=== PATIENT | male | born 1980 | race Caucasian/White ===

== ENCOUNTER 2022-10-10 12:03 | Inpatient (IN) | payer OTHER, SELFPAY ==
[2022-10-10 12:23] VITALS: BP 134/75; PULSE 70; RESP 18; TEMP 36.8; O2SAT 99; BMI 26.8
--- NOTE | 2022-10-10 12:23 | ED.GENADULT ---
HPI - General Adult General Chief complaint: Psychiatric Symptoms Stated complaint: crisis Time Seen by Provider: 10/10/22 13:40 Source: patient Mode of arrival: ambulatory Limitations: no limitations History of Present Illness HPI narrative: Patient is a 42 year old assigned male at with no reported medical history presenting to the emergency department today with increased depression and suicidal ideation. Patient states that he has suicidal thoughts but no plan. Patient denies any dizziness, lightheadedness, abdominal pain, nausea, vomiting, fever, chills, blurry vision, double vision, loss of vision, chest pain, difficulty breathing, shortness of breath, back pain, night sweats, pain with urination, increased urinary frequency, increased urinary urgency, blood in his urine or stool, syncope or a near syncopal episode, recent trauma or falls, bowel incontinence, bladder incontinence, bowel retention, bladder retention, or any other complaints at this time. Onset (ago): day(s) Severity: mild Relieving factors: none Exacerbating factors: none Associated symptoms: denies other symptoms Treatments prior to arrival: none Related Data Home Medications Medication Instructions Recorded Confirmed cyanocobalamin (vitamin B-12) 100 100 mcg PO DAILY 10/10/22 10/10/22 mcg tablet ibuprofen 600 mg tablet 600 mg PO Q6H PRN pain 10/10/22 10/10/22 methocarbamol 750 mg tablet 750 mg PO Q6H PRN muscle spasm 10/10/22 10/10/22 mirtazapine 7.5 mg tablet 7.5 mg PO BEDTIME 10/10/22 10/10/22 olanzapine 5 mg tablet 5 mg PO BEDTIME 10/10/22 10/10/22 Allergies Allergy/AdvReac Type Severity Reaction Status Date / Time seafood Allergy Unknown Verified 10/10/22 14:07 Review of Systems Constitutional: Constitutional: Reports no additional constitutional complaints, Denies chills, Denies fever(s) and Denies night sweats Eyes: Eyes: Reports no additional eye complaints, Denies blurry vision, Denies change in vision, Denies diplopia, Denies eye discharge, Denies loss of vision and Denies eye pain ENT: Denies dizziness Cardiovascular: Cardiovascular: Reports no additional cardiovascular complaints, Denies chest pain, Denies lightheadedness, Denies Loss of Consciousness and Denies dyspnea Respiratory: Respiratory: Reports no additional respiratory complaints and Denies dyspnea Gastrointestinal: Gastrointestinal: Reports no additional gastrointestinal complaints, Denies abdominal pain, Denies melena, Denies hematochezia, Denies change in bowel habits and Denies change in stool character Genitourinary: Genitourinary: Reports no additional male genitourinary complaints, Denies hematuria, Denies oliguria, Denies difficulty urinating, Denies dysuria, Denies urinary frequency, Denies urinary hesitancy, Denies urinary incontinence and Denies urinary urgency Musculoskeletal: Musculoskeletal: Reports no additional musculoskeletal complaints, Denies numbness and Denies tingling Neurologic: Denies dizziness, Denies loss of vision, Denies numbness and Denies tingling Psychiatric: Psychiatric: Reports no additional psychiatric complaints Endocrine: Endocrine: Reports no additional endocrine complaints Hematologic/Lymphatic: Hematologic/Lymphatic: Reports no additional hematologic/lymphatic complaints Allergic/Immunologic: Allergic/Immunologic: Reports no additional allergic/immunologic complaints [facility] Past Medical History Attestation statement: The following information was validated with the patient. Source: old records reviewed and nursing notes reviewed Social History Social History Advance Directives: No Advance Directives Information Provided: Yes Physical Exam ED Vital Signs: Vital Signs - 24 hr 10/10/22 12:23 Temperature 98.3 F Pulse Rate 70 Respiratory Rate 18 Blood Pressure 134/75 Pulse Oximetry 99 Oxygen Delivery Method Room Air BMI result Body Mass Index 26.8 Const General: cooperative, no acute distress, alert and awake Nutritional Appearance: well nourished Orientation/consciousness: patient oriented x3 Limitations: no limitations [facility] Head: Yes normal to inspection and Yes atraumatic Ears: hearing grossly normal bilaterally and external ears normal General nose exam: Normal external nose present, no nasal discharge noted and no epistaxis Face and sinus: Yes normal facial exam, No abrasion and No laceration Mouth: Normal oral and palatal mucosa present, no drooling and no muffled voice Eyes General: appearance normal, both eyes and all related structures Periorbital: periorbital findings normal Eyelids: Yes eyelids normal Conjunctivae: conjunctivae normal Pupils: Equal, round and reactive pupils present EOM: EOMs intact bilaterally Neck Neck: Yes normal visual inspection, Yes full ROM and Yes no lymphadenopathy Chest Chest palpation & inspection: normal inspection of the chest Resp Effort & Inspection: normal respiratory effort and able to speak in complete sentences GI Inspection: Yes normal to inspection Neuro General: patient oriented x3 and moves all extremities Cranial nerves: Yes Equal, round and reactive pupils present Cognition (Neuro): normal cognition Motor exam (neuro): 5/5 motor strength present throughout Sensory Exam: Normal double simultaneous stimulation for sensation Coordination: [id number] test normal Extrem General: Yes normal to inspection, Yes full ROM and Yes capillary refill normal Psych Appearance: grossly normal Mental Status: mental status grossly normal Affect: Sad affect present Attitude: cooperative Thought process: Normal thought process present Thought content: Normal thought content present Insight: Good insight present (Psych) Course Course Course Narrative: RME performed by Radha Ivey PA-C. Patient is a 42 year old assigned male at presenting to the emergency department with worsening depression and suicidal ideation. Patient denies any plain. Labs ordered. Patient placed back in the waiting room pending room availability and results. Medical Decision Making Medical Decision Making MDM Narrative: Patient is a 42 year old assigned male at with no reported medical history presenting to the emergency department today with depression and suicidal ideation. Patient's physical exam was unremarkable. Patient's blood work was unremarkable. Patient's urine showed no acute process. I explained my physical exam findings as well as all test results to the patient. I answered all questions asked by the patient. Patient met with CARE team who recommended voluntary admission. Differential Diagnosis Differential Diagnoses: The differential diagnosis associated with the presentation includes depression Lab Data [facility] Lab Attestation statement: I reviewed the patient's lab results. 10/10/22 12:50 10/10/22 12:50 Labs: Lab Results 10/10/22 10/10/22 10/10/22 Range/Units 12:50 12:50 13:42 WBC 4.9 (4.8-10.8) X10*3/uL RBC 4.91 (4.60-5.80) X10*6/uL Hgb 15.0 (14.0-18.0) g/dl Hct 44.0 (42.0-52.0) % MCV 89.6 (80.0-98.0) fL MCH 30.5 (27.0-33.0) pg MCHC 34.1 (31.0-36.0) g/dl RDW 13.2 (11.0-16.0) % Plt Count 213 (160-400) X10*3/uL MPV 9.3 L (9.4-12.4) fL Immature Gran % (Auto) 0.2 (0.0-0.4) % Neut % (Auto) 54.5 (45-73) % Lymph % (Auto) 36.8 (20-40) % [place] % (Auto) 6.3 (2-11) % Eos % (Auto) 2.0 (0-4) % Baso % (Auto) 0.2 (0-2) % Lymph # (Auto) 1.8 (1.2-4.9) X10*3/uL [place] # (Auto) 0.3 (0.1-1.2) X10*3/uL Eos # (Auto) 0.1 (0.0-0.4) X10*3/uL Baso # (Auto) 0.0 (0.0-0.2) X10*3/uL Abs Immat Gran (auto) 0.01 (0.00-0.03) X10*3/uL Absolute Neuts (auto) 2.7 (2.0-8.3) x10*3/uL Absolute Nucleated RBC 0.000 (0.0-0.012) X10*3/uL Nucleated RBC % (auto) 0.0 (0.0-0.2) /100WBC Sodium 142 (135-145) mmol/L Potassium 4.1 (3.3-5.1) mmol/L Chloride 105 (96-108) mmol/L Carbon Dioxide 28 (22-29) mmol/L Anion Gap 13 (12-20) BUN 11 (9-16) mg/dL Creatinine 1.30 (0.5-1.4) mg/dL Estim Creat Clear Calc 67.4 Estimated GFR > 60 Random Glucose 116 H (60-115) mg/dL Calcium 9.7 (8.4-10.2) mg/dL Magnesium 2.0 (1.6-2.6) mg/dL Total Bilirubin 0.7 (0.0-1.0) mg/dL AST 24 (5-37) U/L ALT 31 (0-40) U/L Alkaline Phosphatase 57 (39-117) U/L Total Protein 6.8 (6.5-8.0) g/dL Albumin 4.1 (3.5-5.0) g/dL Urine Color Dark Yellow Urine Appearance Clear Urine pH 5.5 (5.0-9.0) Ur Specific [place] >= 1.030 H (1.005-1.025) Urine Protein Trace (Neg-Trace) mg/dL Urine Glucose (UA) Negative (Negative) mg/dL Urine Ketones Trace (Negative) mg/dL Urine Blood Negative (Negative) Urine Nitrite Negative (Negative) Ur Leukocyte Esterase Trace H (Negative) Urine RBC 0-2 (0-2) /HPF Urine WBC 0-5 (0-5) /HPF Ur Squamous Epith Cells 0-2 (0-2) /HPF Urine Bacteria None Seen (None Seen) Hyaline Casts 3-5 (0-2) /LPF Urine Opiates Screen (Not Detect) Urine Fentanyl Screen (Not Detect) Ur Barbiturates Screen (Not Detect) Ur Phencyclidine Scrn (Not Detect) Ur Amphetamines Screen (Not Detect) U Benzodiazepines Scrn (Not Detect) Urine Cocaine Screen (Not Detect) U Marijuana (THC) Screen (Not Detect) COVID-19 (ALYSSA) (Negative) COVID-19 Clin Com 10/10/22 10/10/22 Range/Units 13:42 16:33 WBC (4.8-10.8) X10*3/uL RBC (4.60-5.80) X10*6/uL Hgb (14.0-18.0) g/dl Hct (42.0-52.0) % MCV (80.0-98.0) fL MCH (27.0-33.0) pg MCHC (31.0-36.0) g/dl RDW (11.0-16.0) % Plt Count (160-400) X10*3/uL MPV (9.4-12.4) fL Immature Gran % (Auto) (0.0-0.4) % Neut % (Auto) (45-73) % Lymph % (Auto) (20-40) % [place] % (Auto) (2-11) % Eos % (Auto) (0-4) % Baso % (Auto) (0-2) % Lymph # (Auto) (1.2-4.9) X10*3/uL [place] # (Auto) (0.1-1.2) X10*3/uL Eos # (Auto) (0.0-0.4) X10*3/uL Baso # (Auto) (0.0-0.2) X10*3/uL Abs Immat Gran (auto) (0.00-0.03) X10*3/uL Absolute Neuts (auto) (2.0-8.3) x10*3/uL Absolute Nucleated RBC (0.0-0.012) X10*3/uL Nucleated RBC % (auto) (0.0-0.2) /100WBC Sodium (135-145) mmol/L Potassium (3.3-5.1) mmol/L Chloride (96-108) mmol/L Carbon Dioxide (22-29) mmol/L Anion Gap (12-20) BUN (9-16) mg/dL Creatinine (0.5-1.4) mg/dL Estim Creat Clear Calc Estimated GFR Random Glucose (60-115) mg/dL Calcium (8.4-10.2) mg/dL Magnesium (1.6-2.6) mg/dL Total Bilirubin (0.0-1.0) mg/dL AST (5-37) U/L ALT (0-40) U/L Alkaline Phosphatase (39-117) U/L Total Protein (6.5-8.0) g/dL Albumin (3.5-5.0) g/dL Urine Color Urine Appearance Urine pH (5.0-9.0) Ur Specific [place] (1.005-1.025) Urine Protein (Neg-Trace) mg/dL Urine Glucose (UA) (Negative) mg/dL Urine Ketones (Negative) mg/dL Urine Blood (Negative) Urine Nitrite (Negative) Ur Leukocyte Esterase (Negative) Urine RBC (0-2) /HPF Urine WBC (0-5) /HPF Ur Squamous Epith Cells (0-2) /HPF Urine Bacteria (None Seen) Hyaline Casts (0-2) /LPF Urine Opiates Screen Not Detected (Not Detect) Urine Fentanyl Screen Not Detected (Not Detect) Ur Barbiturates Screen Not Detected (Not Detect) Ur Phencyclidine Scrn Not Detected (Not Detect) Ur Amphetamines Screen Not Detected (Not Detect) U Benzodiazepines Scrn Not Detected (Not Detect) Urine Cocaine Screen POSITIVE H (Not Detect) U Marijuana (THC) Screen POSITIVE H (Not Detect) COVID-19 (ALYSSA) Negative (Negative) COVID-19 Clin Com See Note Independent Interpretation I performed an independent interpretation of an: EKG Interpretation: Vent. Rate: 056 BPM ? ? Atrial Rate: 056 BPM P-R Int: 172 ms? QRS Dur: 096 ms QT Int: 432 ms ? ? ? P-R-T Axes: 068 072 053 degrees QTc Int: 416 ms ? Sinus bradycardia Otherwise normal ECG No previous ECGs available DD/ 1646 Discharge Plan Discharge Clinical Impression: Depression Patient Disposition: Still a Patient Prescriptions: No Action cyanocobalamin (vitamin B-12) 100 mcg tablet 100 mcg PO DAILY olanzapine 5 mg tablet 5 mg PO BEDTIME methocarbamol 750 mg tablet 750 mg PO Q6H PRN (Reason: muscle spasm) ibuprofen 600 mg tablet 600 mg PO Q6H PRN (Reason: pain) mirtazapine 7.5 mg tablet 7.5 mg PO BEDTIME Interventions: [place]-Suicide Risk Severity Scale Last Done: 10/10/22 12:24
[2022-10-10 12:54] LABS: MANUAL DIFF FLAG NO
[2022-10-10 12:59] LABS: Basophils Percent Auto 0.2 % (0-2); Eosinophils Absolute Auto 0.1 X10*3/uL (0.0-0.4); Imm Gran Abs Auto 0.01 X10*3/uL (0.00-0.03); Imm Gran Pct Auto 0.2 % (0.0-0.4); Lymphocytes Absolute Auto 1.8 X10*3/uL (1.2-4.9); Lymphocytes Percent Auto 36.8 % (20-40); Mean Corpuscular HGB Conc 34.1 g/dl (31.0-36.0); Mean Corpuscular Hemoglobin 30.5 pg (27.0-33.0); Mean Corpuscular Volume 89.6 fL (80.0-98.0); Mean Platelet Volume 9.3 fL (9.4-12.4); Monocytes Absolute Auto 0.3 X10*3/uL (0.1-1.2); Monocytes Percent Auto 6.3 % (2-11); Neutrophils Absolute Auto 2.7 x10*3/uL (2.0-8.3); Neutrophils Percent Auto 54.5 % (45-73); Platelet Count 213 X10*3/uL (160-400); Red Blood Count 4.91 X10*6/uL (4.60-5.80); Red Cell Distribution Width 13.2 % (11.0-16.0); White Blood Count 4.9 X10*3/uL (4.8-10.8)
[2022-10-10 13:20] LABS: Alanine Aminotransferase 31 U/L (0-40); Albumin Level 4.1 g/dL (3.5-5.0); Alkaline Phosphatase 57 U/L (39-117); Anion Gap 13 (12-20); Aspartate Amino Transferase 24 U/L (5-37); Bilirubin Total 0.7 mg/dL (0.0-1.0); Blood Urea Nitrogen 11 mg/dL (9-16); Calcium 9.7 mg/dL (8.4-10.2); Carbon Dioxide 28 mmol/L (22-29); Chloride 105 mmol/L (96-108); Creatinine Clr Calc Pharmacy 67.4; Estimated Glomerular Filt Rate > 60; Glucose Random 116 mg/dL (60-115); Potassium 4.1 mmol/L (3.3-5.1); Sodium 142 mmol/L (135-145); Total Protein 6.8 g/dL (6.5-8.0)
[2022-10-10 13:52] LABS: Appearance Urine Clear; Color Urine Dark Yellow; Glucose Urine UA Negative (Negative); Leukocyte Esterase Urine Trace (Negative); Nitrite Urine Negative (Negative); PH 5.5 (5.0-9.0); Specific Gravity - Urine >= 1.030 (1.005-1.025); UMIC TRIGGER UACC YES; Urine Blood Negative (Negative); Urine Ketones Trace mg/dL (Negative); Urine Protein Trace mg/dL (Neg-Trace)
[2022-10-10 14:07] LABS: Amphetamine Screen Urine Not Detected (Not Detect); Barbiturates, Urine Not Detected (Not Detect); Benzodiazepines Screen Urine Not Detected (Not Detect); Cannabinoid Screen Urine POSITIVE (Not Detect); Cocaine Screen Urine POSITIVE (Not Detect); Fentanyl, urine Not Detected (Not Detect); Opiate Screen Urine Not Detected (Not Detect); Phencyclidine Screen Urine Not Detected (Not Detect)
[2022-10-10 14:18] LABS: Bacteria Urine None Seen (None Seen); RBC Urine 0-2 /HPF (0-2); Squamous Epithelial Cell Urine 0-2 /HPF (0-2); WBC Urine 0-5 /HPF (0-5)
--- NOTE | 2022-10-10 16:30 | ECG_ITS ---
Test Reason : MED CLEARANCE Blood Pressure : / mmHG Vent. Rate : 056 BPM Atrial Rate : 056 BPM P-R Int : 172 ms QRS Dur : 096 ms QT Int : 432 ms P-R-T Axes : 068 072 053 degrees QTc Int : 416 ms Sinus bradycardia Otherwise normal ECG No previous ECGs available Referred By: Radha Ivey Electronically Signed By:ZACKARY WATT
[2022-10-10 17:05] LABS: COVID-19 Test Negative (Negative); IDNOW Serial# 08D9AD1C
--- NOTE | 2022-10-10 17:42 | MHC.RECOVSUP ---
? Reason for consult Recovery support o Current location: [facility] o Identified substance use concern: Opiate - Seeking ATS (detox) - Support ? Intervention: o Community resources provided o Harm reduction discussion ? Plan: o Patient to follow up with [facility] after discharge ? Additional information: Met with Patient and we talk about harm reduction and recovery..We talk about program like [facility].. Patient stated that they want to go to a rat exterminator program but away from [facility].. We also talked about [facility] [place] and patient was interested.. Info was given to patient
--- NOTE | 2022-10-10 18:04 | PHA.MEDREC ---
Pharmacy Consult ? Medication Reconciliation Pharmacy has completed the medication reconciliation. spoke with patient. Verified all of his medications. He reported that he did not take anything today.
[2022-10-10 22:32] VITALS: BP 110/55; PULSE 61; RESP 18; TEMP 36.9; O2SAT 95
[2022-10-10 23:35] VITALS: BP 123/70; PULSE 59; RESP 16; TEMP 36.6; O2SAT 98
[2022-10-10] MEDS: Gabapentin 300 MG CAPSULE PO (23:50)
[2022-10-10] MEDS: traZODone HCL 50 MG TABLET PO (23:50)
[2022-10-10] MEDS: hydrOXYzine HCL 25 MG TABLET PO (23:50)
--- NOTE | 2022-10-11 00:56 | PC.ADMIT ---
PT is a 42 year old male admitted to unit at 2330 on CV from [facility] ED POD. PT self presented to ED with increased depression and SI with vague plans. PT reports no prior IPLOC. PT was incarcerated for 21 years and was released in 2019. PT has been struggling with chronic substance use since his release. PT appears to have unresolved grief related to the loss of both of his parents while he was incarcerated. Tox screen positive for THC and cocaine. PT is a current smoker and declined smoking cessation information. PT calm and cooperative during admission process. PT feels safe on unit and denies SI/HI. PT is on 15 minute safety checks, currently resting in bed. Safety tool and treatment plan initiated.
[2022-10-11] MEDS: Cyanocobalamin (Vitamin B-12) 100 MCG TABLET PO (07:56)
[2022-10-11 07:58] VITALS: BP 100/51; PULSE 90; RESP 16; TEMP 36.1; O2SAT 100
[2022-10-11 08:00] LABS: Alanine Aminotransferase 27 U/L (0-40); Alkaline Phosphatase 55 U/L (39-117); Anion Gap 11 (12-20); Aspartate Amino Transferase 18 U/L (5-37); Bilirubin Total 0.7 mg/dL (0.0-1.0); Blood Urea Nitrogen 13 mg/dL (9-16); Calcium 9.9 mg/dL (8.4-10.2); Carbon Dioxide 31 mmol/L (22-29); Chloride 105 mmol/L (96-108); Cholesterol 242 mg/dL; Estimated Glomerular Filt Rate 53; Glucose Fasting 92 mg/dL (60-99); HDL Cholesterol 65 mg/dL; LDL Cholesterol Calculated 159 mg/dl; Potassium 4.8 mmol/L (3.3-5.1); Sodium 142 mmol/L (135-145); Total Protein 6.8 g/dL (6.5-8.0); Triglycerides 90 mg/dL
[2022-10-11] MEDS: hydrOXYzine HCL 25 MG TABLET PO (12:49)
[2022-10-11] MEDS: Gabapentin 300 MG CAPSULE PO ×2 (12:49→20:00)
[2022-10-11 17:04] VITALS: BP 119/65; PULSE 55; TEMP 36.1
--- NOTE | 2022-10-11 18:22 | HO.PSYADMNOT ---
HPI Date of Service: 10/11/22 Chief Complaint: suicidal ideation Sources of Information: patient interviewed, chart reviewed and crisis/core team assessment reviewed HPI Subjective Notes: Conditional Voluntary Narrative: 42 yo male, single currently homeless. Patient with a history of depressoin and cocaine use disorder. He presented to [facility] ED with SI with vague plan to OD on drugs. Patient reports struggling with increased life stressors and depression for the past few months. He reports he has not been on his medications. He gets treatment through [facility]. He has been homeless. He relapsed on cocaine. UTOX was positive for cocaine and cannabis. He reports he is maintained on Remeron and Zyprexa when he is doing well. He has had chronic depression and it was exacerbated since the of his mother in 2017. He says the month of September is difficult because it is Mother's Day. He was incarcerated at that time (20 year sentence, released in 2019) and he couldn't attend her services. Past Psychiatric History: History of respite in 2022. Crisis evaluations at [facility]. Treatment through [facility]. Medical Evaluation Reviewed: Yes PMFSH Family History: Unknown Social History: Single, no children (per CARE team evaluation he had a child that passed at age 6 months old). Grew up in [place]. Parents when he was 11 years old. Substance History: Cocaine use disorder Trauma History: Reported that his incarceration was a traumatic experience. Diagnostics Vital Signs (24Hr): Vital Signs - 24 hr 10/10/22 22:32 10/10/22 23:35 10/11/22 07:58 Temperature 98.4 F 98 F 97.0 F Pulse Rate 61 59 90 Respiratory Rate 18 16 16 Blood Pressure 110/55 L 123/70 100/51 L Pulse Oximetry 95 98 100 Oxygen Delivery Method Room Air Room Air Room Air 10/11/22 17:04 Temperature 97 F Pulse Rate 55 Respiratory Rate Blood Pressure 119/65 Pulse Oximetry Oxygen Delivery Method BMI result Body Mass Index 26.8 Labs 10/10/22 12:50 10/11/22 07:28 Labs: Laboratory Results - last 48 hr 10/10/22 10/10/22 10/10/22 12:50 12:50 13:42 WBC 4.9 RBC 4.91 Hgb 15.0 Hct 44.0 MCV 89.6 MCH 30.5 MCHC 34.1 RDW 13.2 Plt Count 213 MPV 9.3 L Immature Gran % (Auto) 0.2 Neut % (Auto) 54.5 Lymph % (Auto) 36.8 [place] % (Auto) 6.3 Eos % (Auto) 2.0 Baso % (Auto) 0.2 Lymph # (Auto) 1.8 [place] # (Auto) 0.3 Eos # (Auto) 0.1 Baso # (Auto) 0.0 Abs Immat Gran (auto) 0.01 Absolute Neuts (auto) 2.7 Absolute Nucleated RBC 0.000 Nucleated RBC % (auto) 0.0 Sodium 142 Potassium 4.1 Chloride 105 Carbon Dioxide 28 Anion Gap 13 BUN 11 Creatinine 1.30 Estim Creat Clear Calc 67.4 Estimated GFR > 60 Random Glucose 116 H Fasting Glucose Calcium 9.7 Magnesium 2.0 Total Bilirubin 0.7 AST 24 ALT 31 Alkaline Phosphatase 57 Total Protein 6.8 Albumin 4.1 Triglycerides Cholesterol LDL Cholesterol, Calc HDL Cholesterol Urine Color Dark Yellow Urine Appearance Clear Urine pH 5.5 Ur Specific [place] >= 1.030 H Urine Protein Trace Urine Glucose (UA) Negative Urine Ketones Trace Urine Blood Negative Urine Nitrite Negative Ur Leukocyte Esterase Trace H Urine RBC 0-2 Urine WBC 0-5 Ur Squamous Epith Cells 0-2 Urine Bacteria None Seen Hyaline Casts 3-5 Urine Opiates Screen Urine Fentanyl Screen Ur Barbiturates Screen Ur Phencyclidine Scrn Ur Amphetamines Screen U Benzodiazepines Scrn Urine Cocaine Screen U Marijuana (THC) Screen COVID-19 (ALYSSA) COVID-19 Clin Com 10/10/22 10/10/22 10/11/22 13:42 16:33 07:28 WBC RBC Hgb Hct MCV MCH MCHC RDW Plt Count MPV Immature Gran % (Auto) Neut % (Auto) Lymph % (Auto) [place] % (Auto) Eos % (Auto) Baso % (Auto) Lymph # (Auto) [place] # (Auto) Eos # (Auto) Baso # (Auto) Abs Immat Gran (auto) Absolute Neuts (auto) Absolute Nucleated RBC Nucleated RBC % (auto) Sodium 142 Potassium 4.8 Chloride 105 Carbon Dioxide 31 H Anion Gap 11 L BUN 13 Creatinine 1.46 H Estim Creat Clear Calc 60.0 Estimated GFR 53 Random Glucose Fasting Glucose 92 Calcium 9.9 Magnesium Total Bilirubin 0.7 AST 18 ALT 27 Alkaline Phosphatase 55 Total Protein 6.8 Albumin 4.0 Triglycerides 90 Cholesterol 242 LDL Cholesterol, Calc 159 HDL Cholesterol 65 Urine Color Urine Appearance Urine pH Ur Specific [place] Urine Protein Urine Glucose (UA) Urine Ketones Urine Blood Urine Nitrite Ur Leukocyte Esterase Urine RBC Urine WBC Ur Squamous Epith Cells Urine Bacteria Hyaline Casts Urine Opiates Screen Not Detected Urine Fentanyl Screen Not Detected Ur Barbiturates Screen Not Detected Ur Phencyclidine Scrn Not Detected Ur Amphetamines Screen Not Detected U Benzodiazepines Scrn Not Detected Urine Cocaine Screen POSITIVE H U Marijuana (THC) Screen POSITIVE H COVID-19 (ALYSSA) Negative COVID-19 Clin Com See Note Meds/Allergies Meds Home Medications Medication Instructions Recorded Confirmed Type clonidine HCl 0.1 mg tablet 0.1 mg PO TID PRN Anxiety 10/10/22 10/10/22 History cyanocobalamin (vitamin B-12) 100 100 mcg PO DAILY 10/10/22 10/10/22 History mcg tablet gabapentin 300 mg capsule 300 mg PO TID PRN Anxiety 10/10/22 10/10/22 History ibuprofen 600 mg tablet 600 mg PO Q6H PRN pain 10/10/22 10/10/22 History methocarbamol 750 mg tablet 750 mg PO Q6H PRN muscle spasm 10/10/22 10/10/22 History mirtazapine 7.5 mg tablet 3.75 - 7.5 mg PO BEDTIME 10/10/22 10/10/22 History nicotine (polacrilex) 2 mg gum 2 mg PO Q2H PRN Smoking Cessation 10/10/22 10/10/22 History olanzapine 5 mg tablet 5 mg PO BEDTIME 10/10/22 10/10/22 History Allergies Allergies Allergy/AdvReac Type Severity Reaction Status Date / Time seafood Allergy Unknown Verified 10/10/22 14:07 Mental Status Exam Mental Status Exam Patient Appearance: Disheveled and Unkempt Patient Orientation: Person, Place, Time and Situation Level of Consciousness: Awake and Alert Patient Behavior: Guarded, Suspicious, Avoidant and Poor Eye Contact Mood Description: Depressed Affect Description: Constricted and Depressed Patient Cognition Impaired: No Ability to Follow Directions: Excellent Speech Pattern: Clear and Impoverished Memory Description: Intact Hallucinations: None Delusions: Not Present and Present (ideation without delusions) Thought Process: Intact Thought Content: positive for Intact, positive for Poverty of Content and positive for Evasive Depressive Symptoms: Difficulty Sleeping, Changes in Appetite, Feelings of Worthlessness, Feelings of Guilt and Thoughts of /Suicide Judgement: Fair Assessment & Plan Assessment & Plan (1) Depression: Status: Acute Code(s): F32.A - Depression, unspecified (2) Cocaine use disorder: Status: Acute Code(s): F14.10 - Cocaine abuse, uncomplicated (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 Plan: Admit to on CV Collaterals. Restart Zyprexa and Remeron. Disposition planning. Encourage milieu and group therapy. Patient educated on: medication risk/benefits and therapeutic strategies Reason for continued inpatient stay Substantial Risk for: harm to self, inability to function and rapid decompensation Statement Statement: I have reviewed the history and physical and performed a pertinent examination on my patient. No changes have occurred unless specified. If the History and Physical was not performed prior to admission, the Hospitalist's service will be consulted for completing the admission physical. Time Spent With Patient Time: Total time managing care of this patient today ____ minutes.
[2022-10-11] MEDS: OLANZapine 10 MG TABLET PO (19:58)
[2022-10-11] MEDS: Mirtazapine 7.5 MG TABLET PO (19:59)
[2022-10-11] MEDS: traZODone HCL 50 MG TABLET PO (19:59)
[2022-10-12] MEDS: Cyanocobalamin (Vitamin B-12) 100 MCG TABLET PO (08:44)
[2022-10-12 08:46] VITALS: BP 114/70; PULSE 77; RESP 18; TEMP 36.4; O2SAT 98
--- NOTE | 2022-10-12 09:55 | P.PNPSI_ITS ---
Subjective Subjective Date of Service: 10/12/22 Reason For Visit: suicidal ideation Interim History: Patient seen and discused Patient reports feeling depressed. Had some insomnia last night. He is tolerating restarting his medications. Not engaged. Isolated. Eating and sleeping well. Denies SI. Review of Systems Constitutional: Reports no additional constitutional complaints, Denies chills, Denies fever(s) and Denies night sweats Eyes: Reports no additional eye complaints, Denies blurry vision, Denies change in vision, Denies diplopia, Denies eye discharge, Denies loss of vision and Denies eye pain Denies dizziness Cardiovascular: Reports no additional cardiovascular complaints, Denies chest pain, Denies lightheadedness, Denies Loss of Consciousness and Denies dyspnea Respiratory: Reports no additional respiratory complaints and Denies dyspnea Gastrointestinal: Reports no additional gastrointestinal complaints, Denies abdominal pain, Denies melena, Denies hematochezia, Denies change in bowel habits and Denies change in stool character Genitourinary: Reports no additional male genitourinary complaints, Denies hematuria, Denies oliguria, Denies difficulty urinating, Denies dysuria, Denies urinary frequency, Denies urinary hesitancy, Denies urinary incontinence and Denies urinary urgency Musculoskeletal: Reports no additional musculoskeletal complaints, Denies n umbness and Denies tingling Denies dizziness, Denies loss of vision, Denies numbness and Denies tingling Psychiatric: Reports no additional psychiatric complaints Endocrine: Reports no additional endocrine complaints Hematologic/Lymphatic: Reports no additional hematologic/lymphatic complaints Allergic/Immunologic: Reports no additional allergic/immunologic complaints Mental Status Exam Mental Status Exam Patient Appearance: Disheveled and Unkempt Patient Orientation: Person, Place, Time and Situation Level of Consciousness: Awake and Alert Patient Behavior: Guarded, Suspicious, Avoidant and Poor Eye Contact Mood Description: Depressed Affect Description: Constricted and Depressed Patient Cognition Impaired: No Ability to Follow Directions: Excellent Speech Pattern: Clear and Impoverished Memory Description: Intact Diagnostics Vital Signs (24Hr): Vital Signs - 24 hr 10/11/22 17:04 10/12/22 08:46 Temperature 97 F 97.5 F Pulse Rate 55 77 Respiratory Rate 18 Blood Pressure 119/65 114/70 Pulse Oximetry 98 Oxygen Delivery Method Room Air BMI result Body Mass Index 26.8 Labs 10/10/22 12:50 10/11/22 07:28 Labs: Laboratory Results - last 48 hr 10/10/22 10/10/22 10/10/22 12:50 12:50 13:42 WBC 4.9 RBC 4.91 Hgb 15.0 Hct 44.0 MCV 89.6 MCH 30.5 MCHC 34.1 RDW 13.2 Plt Count 213 MPV 9.3 L Immature Gran % (Auto) 0.2 Neut % (Auto) 54.5 Lymph % (Auto) 36.8 [place] % (Auto) 6.3 Eos % (Auto) 2.0 Baso % (Auto) 0.2 Lymph # (Auto) 1.8 [place] # (Auto) 0.3 Eos # (Auto) 0.1 Baso # (Auto) 0.0 Abs Immat Gran (auto) 0.01 Absolute Neuts (auto) 2.7 Absolute Nucleated RBC 0.000 Nucleated RBC % (auto) 0.0 Sodium 142 Potassium 4.1 Chloride 105 Carbon Dioxide 28 Anion Gap 13 BUN 11 Creatinine 1.30 Estim Creat Clear Calc 67.4 Estimated GFR > 60 Random Glucose 116 H Fasting Glucose Calcium 9.7 Magnesium 2.0 Total Bilirubin 0.7 AST 24 ALT 31 Alkaline Phosphatase 57 Total Protein 6.8 Albumin 4.1 Triglycerides Cholesterol LDL Cholesterol, Calc HDL Cholesterol Urine Color Dark Yellow Urine Appearance Clear Urine pH 5.5 Ur Specific [place] >= 1.030 H Urine Protein Trace Urine Glucose (UA) Negative Urine Ketones Trace Urine Blood Negative Urine Nitrite Negative Ur Leukocyte Esterase Trace H Urine RBC 0-2 Urine WBC 0-5 Ur Squamous Epith Cells 0-2 Urine Bacteria None Seen Hyaline Casts 3-5 Urine Opiates Screen Urine Fentanyl Screen Ur Barbiturates Screen Ur Phencyclidine Scrn Ur Amphetamines Screen U Benzodiazepines Scrn Urine Cocaine Screen U Marijuana (THC) Screen COVID-19 ([facility]) COVID-19 Clin Com 10/10/22 10/10/22 10/11/22 13:42 16:33 07:28 WBC RBC Hgb Hct MCV MCH MCHC RDW Plt Count MPV Immature Gran % (Auto) Neut % (Auto) Lymph % (Auto) [place] % (Auto) Eos % (Auto) Baso % (Auto) Lymph # (Auto) [place] # (Auto) Eos # (Auto) Baso # (Auto) Abs Immat Gran (auto) Absolute Neuts (auto) Absolute Nucleated RBC Nucleated RBC % (auto) Sodium 142 Potassium 4.8 Chloride 105 Carbon Dioxide 31 H Anion Gap 11 L BUN 13 Creatinine 1.46 H Estim Creat Clear Calc 60.0 Estimated GFR 53 Random Glucose Fasting Glucose 92 Calcium 9.9 Magnesium Total Bilirubin 0.7 AST 18 ALT 27 Alkaline Phosphatase 55 Total Protein 6.8 Albumin 4.0 Triglycerides 90 Cholesterol 242 LDL Cholesterol, Calc 159 HDL Cholesterol 65 Urine Color Urine Appearance Urine pH Ur Specific [place] Urine Protein Urine Glucose (UA) Urine Ketones Urine Blood Urine Nitrite Ur Leukocyte Esterase Urine RBC Urine WBC Ur Squamous Epith Cells Urine Bacteria Hyaline Casts Urine Opiates Screen Not Detected Urine Fentanyl Screen Not Detected Ur Barbiturates Screen Not Detected Ur Phencyclidine Scrn Not Detected Ur Amphetamines Screen Not Detected U Benzodiazepines Scrn Not Detected Urine Cocaine Screen POSITIVE H U Marijuana (THC) Screen POSITIVE H COVID-19 ([facility]) Negative COVID-19 Clin Com See Note Medications Medications Current Medications Acetaminophen (Acetaminophen 325 Mg Tablet) 650 mg PO Q6H PRN PRN Reason: Headache/Pain Mild Scale (1-3) Al Hydroxide/Mg Hydroxide (Magnesium Hydrox/Alum Hydrox 30 Ml Oral.Susp) 30 ml PO Q6H PRN PRN Reason: Heartburn/Nausea Clonidine HCl (Clonidine Hcl 0.1 Mg Tablet) 0.1 mg PO TID PRN; Protocol PRN Reason: Anxiety Cyanocobalamin (Cyanocobalamin (Vitamin B-12) 100 Mcg Tablet) 100 mcg PO DAILY [facility] Last Admin: 10/12/22 08:44 Dose: 100 mcg Gabapentin (Gabapentin 300 Mg Capsule) 300 mg PO TID PRN PRN Reason: Anxiety Last Admin: 10/11/22 20:00 Dose: 300 mg Hydroxyzine HCl (Hydroxyzine Hcl 25 Mg Tablet) 25 mg PO Q6H PRN PRN Reason: Anxiety Last Admin: 10/11/22 12:49 Dose: 25 mg Magnesium Hydroxide (Milk Of Magnesia 30 Ml Oral.Susp) 30 ml PO DAILY PRN PRN Reason: Constipation Methocarbamol (Methocarbamol 750 Mg Tablet) 750 mg PO Q6H PRN PRN Reason: muscle spasm Mirtazapine (Mirtazapine 7.5 Mg Tablet) 7.5 mg PO BEDTIME [facility] Last Admin: 10/11/22 19:59 Dose: 7.5 mg Nicotine Polacrilex (Nicotine Polacrilex 2 Mg Gum) 2 mg BUCCAL Q2H PRN PRN Reason: Smoking Cessation Olanzapine (Olanzapine 10 Mg Tablet) 10 mg PO BEDTIME TRACI Last Admin: 10/11/22 19:58 Dose: 10 mg Pharmacy Consult (Consult Rx Perform Med Rec) 1 each MISCELLANE ONCE PRN PRN Reason: Consult order Trazodone HCl (Trazodone Hcl 50 Mg Tablet) 50 mg PO BEDTIME MRX1 PRN PRN Reason: Insomnia Last Admin: 10/11/22 19:59 Dose: 50 mg Allergies Allergies Allergy/AdvReac Type Severity Reaction Status Date / Time seafood Allergy Unknown Verified 10/10/22 14:07 Assessment & Plan Assessment & Plan (1) Depression: Status: Acute Code(s): F32.A - Depression, unspecified (2) Cocaine use disorder: Status: Acute Code(s): F14.10 - Cocaine abuse, uncomplicated (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 Plan: Admit to M5 on CV Collaterals. Restart Zyprexa and Remeron. Disposition planning. Encourage milieu and group therapy. Reason for continued inpatient stay Substantial Risk for: harm to self, inability to function and rapid decompensation Time Spent With Patient Time: Total time managing care of this patient today ____ minutes.
[2022-10-12] MEDS: Gabapentin 300 MG CAPSULE PO ×2 (15:11→20:13)
[2022-10-12 18:10] VITALS: BP 105/53; PULSE 55; TEMP 36.2
[2022-10-12] MEDS: OLANZapine 10 MG TABLET PO (20:13)
[2022-10-12] MEDS: traZODone HCL 50 MG TABLET PO (20:13)
[2022-10-12] MEDS: Mirtazapine 7.5 MG TABLET PO (20:13)
[2022-10-13] MEDS: Cyanocobalamin (Vitamin B-12) 100 MCG TABLET PO (08:32)
[2022-10-13 08:33] VITALS: BP 116/67; PULSE 52; RESP 14; TEMP 37.2; O2SAT 98
--- NOTE | 2022-10-13 11:25 | PC.NURSE ---
Pt signed a 3 day notice up on October 16. MD MIAH, and SW aware.
--- NOTE | 2022-10-13 17:24 | HO.PSYCHPN ---
Subjective Subjective Date of Service: 10/13/22 Reason For Visit: suicidal ideation Subjective Notes: Conditional Voluntary and 3 Day Healthcare Proxy: No Guardianship: No Medical Problems Affecting Mental Status: No Interim History: Discussed with team. Pt reports May is a difficult time with Mother's Day and anniversaries of losses of parents while incarcerated. Pt has signed a three day notice-he asks for information on local programs but has been invited to live with family (sister) in [place] and is considering all options. Reports poor sleep last night, but not waking up tired so feels medications are beginning to work. Medication Compliance: Yes Side effects from medications: No Attending Groups: Yes Review of Systems Acute medical concerns: No Medical Review of Systems: unchanged Mental Status Exam Mental Status Exam Patient Appearance: Appropriate Patient Orientation: Person, Place, Time and Situation Level of Consciousness: Alert Patient Behavior: Appropriate, Talkative, Cooperative and Good Eye Contact Mood Description: Depressed, Anxious and Apprehensive Affect Description: Apprehensive Patient Cognition Impaired: No Ability to Follow Directions: Good Speech Pattern: Spontaneous Speech Memory Description: Intact Hallucinations: None Delusions: Not Present Perceptual Disturbances: Derealization Thought Content: positive for Circumstantial and positive for Suicidal Ideation (denies current SI) Depressive Symptoms: Increased Anxiety Judgement: Good Diagnostics Vital Signs (24Hr): Vital Signs - 24 hr 10/12/22 18:10 10/13/22 08:33 Temperature 97.1 F 98.9 F Pulse Rate 55 52 Respiratory Rate 14 Blood Pressure 105/53 L 116/67 Pulse Oximetry 98 Oxygen Delivery Method Room Air BMI result Body Mass Index 26.8 Labs 10/10/22 12:50 10/11/22 07:28 Medications Medications Current Medications Acetaminophen (Acetaminophen 325 Mg Tablet) 650 mg PO Q6H PRN PRN Reason: Headache/Pain Mild Scale (1-3) [place] Hydroxide/Mg Hydroxide (Magnesium Hydrox/Alum Hydrox 30 Ml Oral.Susp) 30 ml PO Q6H PRN PRN Reason: Heartburn/Nausea Clonidine HCl (Clonidine Hcl 0.1 Mg Tablet) 0.1 mg PO TID PRN; Protocol PRN Reason: Anxiety Cyanocobalamin (Cyanocobalamin (Vitamin B-12) 100 Mcg Tablet) 100 mcg PO DAILY [facility] Last Admin: 10/13/22 08:32 Dose: 100 mcg Gabapentin (Gabapentin 300 Mg Capsule) 300 mg PO TID PRN PRN Reason: Anxiety Last Admin: 10/12/22 20:13 Dose: 300 mg Hydroxyzine HCl (Hydroxyzine Hcl 25 Mg Tablet) 25 mg PO Q6H PRN PRN Reason: Anxiety Last Admin: 10/11/22 12:49 Dose: 25 mg Magnesium Hydroxide (Milk Of Magnesia 30 Ml Oral.Susp) 30 ml PO DAILY PRN PRN Reason: Constipation Methocarbamol (Methocarbamol 750 Mg Tablet) 750 mg PO Q6H PRN PRN Reason: muscle spasm Mirtazapine (Mirtazapine 7.5 Mg Tablet) 7.5 mg PO BEDTIME TRACI Last Admin: 10/12/22 20:13 Dose: 7.5 mg Nicotine Polacrilex (Nicotine Polacrilex 2 Mg Gum) 2 mg BUCCAL Q2H PRN PRN Reason: Smoking Cessation Olanzapine (Olanzapine 10 Mg Tablet) 10 mg PO BEDTIME TRACI Last Admin: 10/12/22 20:13 Dose: 10 mg Pharmacy Consult (Consult Rx Perform Med Rec) 1 each MISCELLANE ONCE PRN PRN Reason: Consult order Trazodone HCl (Trazodone Hcl 50 Mg Tablet) 50 mg PO BEDTIME MRX1 PRN PRN Reason: Insomnia Last Admin: 10/12/22 20:13 Dose: 50 mg Allergies Allergies Allergy/AdvReac Type Severity Reaction Status Date / Time seafood Allergy Unknown Verified 10/10/22 14:07 Assessment & Plan Assessment & Plan (1) Depression: Status: Acute Code(s): F32.A - Depression, unspecified (2) Cocaine use disorder: Status: Acute Code(s): F14.10 - Cocaine abuse, uncomplicated (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 Plan: Admit to M5 on CV Collaterals. Restart Zyprexa and Remeron. Disposition planning. Encourage milieu and group therapy. 10/13/22- Continue current regime Discharge planning. Patient educated on: therapeutic strategies Informed Consent: understands Reason for continued inpatient stay Substantial Risk for: harm to self and rapid decompensation Time Spent With Patient Time: Total time managing care of this patient today ____ minutes.
[2022-10-13] MEDS: Gabapentin 300 MG CAPSULE PO (20:35)
[2022-10-13] MEDS: hydrOXYzine HCL 25 MG TABLET PO (20:35)
[2022-10-13] MEDS: Mirtazapine 7.5 MG TABLET PO (20:35)
[2022-10-13] MEDS: traZODone HCL 50 MG TABLET PO (20:35)
[2022-10-13] MEDS: OLANZapine 10 MG TABLET PO (20:35)
[2022-10-13 20:45] VITALS: BP 135/74; PULSE 58; TEMP 36.8
[2022-10-14 06:00] VITALS: BP 106/66; PULSE 50; RESP 14; TEMP 36.4; O2SAT 98
[2022-10-14] MEDS: Cyanocobalamin (Vitamin B-12) 100 MCG TABLET PO (09:03)
--- NOTE | 2022-10-14 14:41 | PC.NURSE ---
Pt retracted 3 day on 10/14. MD MIAH, and SW aware.
[2022-10-14] MEDS: Gabapentin 300 MG CAPSULE PO ×2 (15:13→20:10)
--- NOTE | 2022-10-14 15:34 | HO.PSYCHPN ---
Subjective Subjective Date of Service: 10/14/22 Reason For Visit: suicidal ideation Subjective Notes: Conditional Voluntary Healthcare Proxy: No Guardianship: No Medical Problems Affecting Mental Status: No Interim History: Pt spent a great deal of time talking with family today about discharge planning. As of this time he has not decided what plan to proceed with, but is working with all of his options. Currently, no medicine issues he reports of concern Medication Compliance: Yes Side effects from medications: No Attending Groups: Intermittent Review of Systems Acute medical concerns: No Medical Review of Systems: unchanged Mental Status Exam Mental Status Exam Patient Appearance: Appropriate Patient Orientation: Person, Place, Time and Situation Level of Consciousness: Alert Patient Behavior: Appropriate, Talkative, Cooperative and Good Eye Contact Mood Description: Depressed, Anxious and Apprehensive Affect Description: Apprehensive Patient Cognition Impaired: No Ability to Follow Directions: Good Speech Pattern: Spontaneous Speech Memory Description: Intact Hallucinations: None Delusions: Not Present Perceptual Disturbances: Derealization Thought Content: positive for Circumstantial and positive for Suicidal Ideation (denies current SI) Depressive Symptoms: Increased Anxiety Judgement: Good Diagnostics Vital Signs (24Hr): Vital Signs - 24 hr 10/13/22 20:45 10/14/22 06:00 Temperature 98.3 F 97.5 F Pulse Rate 58 50 Respiratory Rate 14 Blood Pressure 135/74 106/66 Pulse Oximetry 98 Oxygen Delivery Method Room Air Room Air BMI result Body Mass Index 26.8 Labs 10/10/22 12:50 10/11/22 07:28 Medications Medications Current Medications Acetaminophen (Acetaminophen 325 Mg Tablet) 650 mg PO Q6H PRN PRN Reason: Headache/Pain Mild Scale (1-3) [place] Hydroxide/Mg Hydroxide (Magnesium Hydrox/Alum Hydrox 30 Ml Oral.Susp) 30 ml PO Q6H PRN PRN Reason: Heartburn/Nausea Clonidine HCl (Clonidine Hcl 0.1 Mg Tablet) 0.1 mg PO TID PRN; Protocol PRN Reason: Anxiety Cyanocobalamin (Cyanocobalamin (Vitamin B-12) 100 Mcg Tablet) 100 mcg PO DAILY [facility] Last Admin: 10/14/22 09:03 Dose: 100 mcg Gabapentin (Gabapentin 300 Mg Capsule) 300 mg PO TID PRN PRN Reason: Anxiety Last Admin: 10/14/22 15:13 Dose: 300 mg Hydroxyzine HCl (Hydroxyzine Hcl 25 Mg Tablet) 25 mg PO Q6H PRN PRN Reason: Anxiety Last Admin: 10/13/22 20:35 Dose: 25 mg Magnesium Hydroxide (Milk Of Magnesia 30 Ml Oral.Susp) 30 ml PO DAILY PRN PRN Reason: Constipation Methocarbamol (Methocarbamol 750 Mg Tablet) 750 mg PO Q6H PRN PRN Reason: muscle spasm Mirtazapine (Mirtazapine 7.5 Mg Tablet) 7.5 mg PO BEDTIME TRACI Last Admin: 10/13/22 20:35 Dose: 7.5 mg Nicotine Polacrilex (Nicotine Polacrilex 2 Mg Gum) 2 mg BUCCAL Q2H PRN PRN Reason: Smoking Cessation Olanzapine (Olanzapine 10 Mg Tablet) 10 mg PO BEDTIME [facility] Last Admin: 10/13/22 20:35 Dose: 10 mg Pharmacy Consult (Consult Rx Perform Med Rec) 1 each MISCELLANE ONCE PRN PRN Reason: Consult order Trazodone HCl (Trazodone Hcl 50 Mg Tablet) 50 mg PO BEDTIME MRX1 PRN PRN Reason: Insomnia Last Admin: 10/13/22 20:35 Dose: 50 mg Allergies Allergies Allergy/AdvReac Type Severity Reaction Status Date / Time seafood Allergy Unknown Verified 10/10/22 14:07 Assessment & Plan Assessment & Plan (1) Depression: Status: Acute Code(s): F32.A - Depression, unspecified (2) Cocaine use disorder: Status: Acute Code(s): F14.10 - Cocaine abuse, uncomplicated (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 Plan: Admit to M5 on CV Collaterals. Restart Zyprexa and Remeron. Disposition planning. Encourage milieu and group therapy. 10/13/22- Continue current regime Discharge planning. 10/14/22- Continue current regime No med SE Discharge planning. TDN 10/16/22. Patient educated on: therapeutic strategies Informed Consent: understands Reason for continued inpatient stay Substantial Risk for: rapid decompensation Time Spent With Patient Time: Total time managing care of this patient today ____ minutes.
[2022-10-14 18:49] VITALS: BP 120/61; PULSE 56; TEMP 36.2
[2022-10-14] MEDS: traZODone HCL 50 MG TABLET PO (20:10)
[2022-10-14] MEDS: OLANZapine 10 MG TABLET PO (20:10)
[2022-10-14] MEDS: Mirtazapine 7.5 MG TABLET PO (20:10)
[2022-10-15 06:00] VITALS: BP 108/68; PULSE 58; TEMP 36.6; O2SAT 99
[2022-10-15 07:00] VITALS: BMI 24.9
[2022-10-15] MEDS: Cyanocobalamin (Vitamin B-12) 100 MCG TABLET PO (09:12)
[2022-10-15] MEDS: Gabapentin 300 MG CAPSULE PO (12:54)
--- NOTE | 2022-10-15 16:01 | P.PNPSI_ITS ---
Subjective Subjective Date of Service: 10/15/22 Reason For Visit: suicidal ideation Subjective Notes: Conditional Voluntary Healthcare Proxy: No Guardianship: No Medical Problems Affecting Mental Status: No Interim History: Pt retracted TDN, reports poor sleep, will increase Remeron back to 15 mg HS and increase HS Gabapentin, leaving 300 mg bid prn and 600 mg hs scheduled to assist with anxiety/sleep. Pt has decided he will not return to [place] immediately. He will live with uncle locally, plan to get treatment in [place] and has a half-way goal of moving to [place] in December, stating he wanted to completed treatment prior to returning to family/sister's home in [place]. Working on sleep hygiene. Believes Trazodone is not too helpful, especially in combination with Hydroxyzine. Medication Compliance: Yes Side effects from medications: No Attending Groups: No Review of Systems Acute medical concerns: No Medical Review of Systems: unchanged Mental Status Exam Mental Status Exam Patient Appearance: Appropriate Patient Orientation: Person, Place, Time and Situation Level of Consciousness: Alert Patient Behavior: Appropriate, Talkative, Cooperative and Good Eye Contact Mood Description: Depressed, Anxious and Apprehensive Affect Description: Apprehensive Patient Cognition Impaired: No Ability to Follow Directions: Good Speech Pattern: Spontaneous Speech Memory Description: Intact Hallucinations: None Delusions: Not Present Perceptual Disturbances: Derealization Thought Content: positive for Circumstantial and positive for Suicidal Ideation (denies current SI) Depressive Symptoms: Increased Anxiety Judgement: Good Diagnostics Vital Signs (24Hr): Vital Signs - 24 hr 10/14/22 18:49 10/15/22 06:00 Temperature 97.2 F 98 F Pulse Rate 56 58 Blood Pressure 120/61 108/68 Pulse Oximetry 99 Oxygen Delivery Method Room Air BMI result Body Mass Index 24.9 Labs 10/10/22 12:50 10/11/22 07:28 Medications Medications Current Medications Acetaminophen (Acetaminophen 325 Mg Tablet) 650 mg PO Q6H PRN PRN Reason: Headache/Pain Mild Scale (1-3) [place] Hydroxide/Mg Hydroxide (Magnesium Hydrox/Alum Hydrox 30 Ml Oral.Susp) 30 ml PO Q6H PRN PRN Reason: Heartburn/Nausea Clonidine HCl (Clonidine Hcl 0.1 Mg Tablet) 0.1 mg PO TID PRN; Protocol PRN Reason: Anxiety Cyanocobalamin (Cyanocobalamin (Vitamin B-12) 100 Mcg Tablet) 100 mcg PO DAILY [facility] Last Admin: 10/15/22 09:12 Dose: 100 mcg Gabapentin (Gabapentin 300 Mg Capsule) 300 mg PO TID PRN PRN Reason: Anxiety Last Admin: 10/15/22 12:54 Dose: 300 mg Hydroxyzine HCl (Hydroxyzine Hcl 25 Mg Tablet) 25 mg PO Q6H PRN PRN Reason: Anxiety Last Admin: 10/13/22 20:35 Dose: 25 mg Magnesium Hydroxide (Milk Of Magnesia 30 Ml Oral.Susp) 30 ml PO DAILY PRN PRN Reason: Constipation Methocarbamol (Methocarbamol 750 Mg Tablet) 750 mg PO Q6H PRN PRN Reason: muscle spasm Mirtazapine (Mirtazapine 7.5 Mg Tablet) 7.5 mg PO BEDTIME [facility] Last Admin: 10/14/22 20:10 Dose: 7.5 mg Nicotine Polacrilex (Nicotine Polacrilex 2 Mg Gum) 2 mg BUCCAL Q2H PRN PRN Reason: Smoking Cessation Olanzapine (Olanzapine 10 Mg Tablet) 10 mg PO BEDTIME [facility] Last Admin: 10/14/22 20:10 Dose: 10 mg Pharmacy Consult (Consult Rx Perform Med Rec) 1 each MISCELLANE ONCE PRN PRN Reason: Consult order Trazodone HCl (Trazodone Hcl 50 Mg Tablet) 50 mg PO BEDTIME MRX1 PRN PRN Reason: Insomnia Last Admin: 10/14/22 20:10 Dose: 50 mg Allergies Allergies Allergy/AdvReac Type Severity Reaction Status Date / Time seafood Allergy Unknown Verified 10/10/22 14:07 Assessment & Plan Assessment & Plan (1) Depression: Status: Acute Code(s): F32.A - Depression, unspecified (2) Cocaine use disorder: Status: Acute Code(s): F14.10 - Cocaine abuse, uncomplicated (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 Plan: Admit to on CV Collaterals. Restart Zyprexa and Remeron. Disposition planning. Encourage milieu and group therapy. 10/13/22- Continue current regime Discharge planning. 10/14/22- Continue current regime No med SE Discharge planning. TDN 10/16/22. 10/15/22- Retraction of TDN Increase Remeron to 15 mg HS Change Gabapentin to 300 mg bid prn anxiety and 600 mg hs scheduled Probable discharge 10/19. Patient educated on: medication risk/benefits and therapeutic strategies Informed Consent: understands Reason for continued inpatient stay Substantial Risk for: rapid decompensation Time Spent With Patient Time: Total time managing care of this patient today ____ minutes.
[2022-10-15 18:00] VITALS: BP 128/64; PULSE 74; TEMP 36; O2SAT 98
[2022-10-15 20:29] VITALS: BP 119/78; PULSE 64; TEMP 36.7; O2SAT 96
[2022-10-15] MEDS: Mirtazapine 15 MG TABLET PO (20:33)
[2022-10-15] MEDS: OLANZapine 10 MG TABLET PO (20:33)
[2022-10-15] MEDS: Gabapentin 600 MG TABLET PO (20:33)
[2022-10-15] MEDS: traZODone HCL 50 MG TABLET PO (20:36)
[2022-10-16 06:00] VITALS: BP 111/65; PULSE 55; RESP 14; TEMP 36.6; O2SAT 95
[2022-10-16] MEDS: Cyanocobalamin (Vitamin B-12) 100 MCG TABLET PO (08:44)
[2022-10-16] MEDS: Gabapentin 300 MG CAPSULE PO (08:44)
--- NOTE | 2022-10-16 09:53 | HO.PSYCHPN ---
Subjective Subjective Date of Service: 10/16/22 Reason For Visit: suicidal ideation Interim History: met with patient; discussed with team; reviewed notes pt reports he's feeling much better; no SI; says he's sleeping well with increased Remeron. Says hand feeling much better with gabapentin. pt did get angry at disruptive peer last night but was able to stay in control Mental Status Exam Mental Status Exam Narrative: Pt is alert and oriented; behavior is cooperative, friendly and calm; patient is not in distress; shirtless, unkempt; mood is described as better and affect congruent, brighter; eye contact appropriate; Speech is normal rate, volume and prosody and not pressured; no psychomotor agitation/retardation present; thought process is organized and goal directed; Thought content is on tx; otherwise pertinent to relevant topics and without any delusional content, paranoid ideations or grandiosity; denies any SI/HI. There is no evidence of perceptual disturbance. Patients insight and judgment appear intact. Diagnostics Vital Signs (24Hr): Vital Signs - 24 hr 10/15/22 18:00 10/15/22 20:29 10/16/22 06:00 Temperature 96.8 F 98.0 F 97.8 F Pulse Rate 74 64 55 Respiratory Rate 14 Blood Pressure 128/64 119/78 111/65 Pulse Oximetry 98 96 95 Oxygen Delivery Method Room Air Room Air Room Air BMI result Body Mass Index 24.9 Labs 10/10/22 12:50 10/11/22 07:28 Medications Medications Current Medications Acetaminophen (Acetaminophen 325 Mg Tablet) 650 mg PO Q6H PRN PRN Reason: Headache/Pain Mild Scale (1-3) Al Hydroxide/Mg Hydroxide (Magnesium Hydrox/Alum Hydrox 30 Ml Oral.Susp) 30 ml PO Q6H PRN PRN Reason: Heartburn/Nausea Clonidine HCl (Clonidine Hcl 0.1 Mg Tablet) 0.1 mg PO TID PRN; Protocol PRN Reason: Anxiety Cyanocobalamin (Cyanocobalamin (Vitamin B-12) 100 Mcg Tablet) 100 mcg PO DAILY [facility] Last Admin: 10/16/22 08:44 Dose: 100 mcg Gabapentin (Gabapentin 300 Mg Capsule) 300 mg PO BID PRN PRN Reason: Anxiety Last Admin: 10/16/22 08:44 Dose: 300 mg Gabapentin (Gabapentin 600 Mg Tablet) 600 mg PO BEDTIME [facility] Last Admin: 10/15/22 20:33 Dose: 600 mg Hydroxyzine HCl (Hydroxyzine Hcl 25 Mg Tablet) 25 mg PO Q6H PRN PRN Reason: Anxiety Last Admin: 10/13/22 20:35 Dose: 25 mg Magnesium Hydroxide (Milk Of Magnesia 30 Ml Oral.Susp) 30 ml PO DAILY PRN PRN Reason: Constipation Methocarbamol (Methocarbamol 750 Mg Tablet) 750 mg PO Q6H PRN PRN Reason: muscle spasm Mirtazapine (Mirtazapine 15 Mg Tablet) 15 mg PO BEDTIME [facility] Last Admin: 10/15/22 20:33 Dose: 15 mg Nicotine Polacrilex (Nicotine Polacrilex 2 Mg Gum) 2 mg BUCCAL Q2H PRN PRN Reason: Smoking Cessation Olanzapine (Olanzapine 10 Mg Tablet) 10 mg PO BEDTIME [facility] Last Admin: 10/15/22 20:33 Dose: 10 mg Pharmacy Consult (Consult Rx Perform Med Rec) 1 each MISCELLANE ONCE PRN PRN Reason: Consult order Trazodone HCl (Trazodone Hcl 50 Mg Tablet) 50 mg PO BEDTIME MRX1 PRN PRN Reason: Insomnia Last Admin: 10/15/22 20:36 Dose: 50 mg Allergies Allergies Allergy/AdvReac Type Severity Reaction Status Date / Time seafood Allergy Unknown Verified 10/10/22 14:07 Assessment & Plan Assessment & Plan (1) Depression: Status: Acute Code(s): F32.A - Depression, unspecified (2) Cocaine use disorder: Status: Acute Code(s): F14.10 - Cocaine abuse, uncomplicated (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 Plan: Admit to M5 on CV Collaterals. Restart Zyprexa and Remeron. Disposition planning. Encourage milieu and group therapy. 10/13/22- Continue current regime Discharge planning. 10/14/22- Continue current regime No med SE Discharge planning. TDN 10/16/22. 10/15/22- Retraction of TDN Increase Remeron to 15 mg HS Change Gabapentin to 300 mg bid prn anxiety and 600 mg hs scheduled Probable discharge 10/2010/16/22 pt stabilizing; doing better continue w/ current tx plan Patient educated on: diagnosis, medication risk/benefits and medical condition Informed Consent: understands Reason for continued inpatient stay Substantial Risk for: med/psych decompensation Time Spent With Patient Time: Total time managing care of this patient today ____ minutes.
[2022-10-16 18:21] VITALS: BP 129/65; PULSE 72; TEMP 36.8
[2022-10-16] MEDS: Gabapentin 600 MG TABLET PO (20:30)
[2022-10-16] MEDS: OLANZapine 10 MG TABLET PO (20:30)
[2022-10-16] MEDS: traZODone HCL 50 MG TABLET PO (20:30)
[2022-10-16] MEDS: Mirtazapine 15 MG TABLET PO (20:30)
[2022-10-17] MEDS: Cyanocobalamin (Vitamin B-12) 100 MCG TABLET PO (08:34)
[2022-10-17] MEDS: Gabapentin 300 MG CAPSULE PO ×2 (08:38→16:32)
[2022-10-17 09:13] VITALS: BP 116/64; PULSE 59; RESP 14; TEMP 36.7; O2SAT 97
--- NOTE | 2022-10-17 14:33 | HO.PSYCHPN ---
Subjective Subjective Date of Service: 10/17/22 Reason For Visit: suicidal ideation Subjective Notes: Conditional Voluntary Interim History: met with patient; reviewed notes pt reports he's feeling much better; no SI;no HI says he's sleeping well with help of medication. irritable with roommate at times but good behavioral control Medication Compliance: Yes Side effects from medications: No Attending Groups: Intermittent Review of Systems Acute medical concerns: No Medical Review of Systems: unchanged Review of Systems Review of Systems no changes Constitutional: Reports no additional constitutional complaints, Denies chills, Denies fever(s) and Denies night sweats Eyes: Reports no additional eye complaints, Denies blurry vision, Denies change in vision, Denies diplopia, Denies eye discharge, Denies loss of vision and Denies eye pain Denies dizziness Cardiovascular: Reports no additional cardiovascular complaints, Denies chest pain, Denies lightheadedness, Denies Loss of Consciousness and Denies dyspnea Respiratory: Reports no additional respiratory complaints and Denies dyspnea Gastrointestinal: Reports no additional gastrointestinal complaints, Denies abdominal pain, Denies melena, Denies hematochezia, Denies change in bowel habits and Denies change in stool character Genitourinary: Reports no additional male genitourinary complaints, Denies hematuria, Denies oliguria, Denies difficulty urinating, Denies dysuria, Denies urinary frequency, Denies urinary hesitancy, Denies urinary incontinence and Denies urinary urgency Musculoskeletal: Reports no additional musculoskeletal complaints, Denies numbness and Denies tingling Denies dizziness, Denies loss of vision, Denies numbness and Denies tingling Psychiatric: Reports no additional psychiatric complaints Endocrine: Reports no additional endocrine complaints Hematologic/Lymphatic: Reports no additional hematologic/lymphatic complaints Allergic/Immunologic: Reports no additional allergic/immunologic complaints Mental Status Exam Mental Status Exam Narrative: Pt is alert and oriented; behavior is cooperative, friendly and calm; patient is not in distress;in bed with covers on. mood is described as better and affect congruent, brighter; eye contact appropriate; Speech is normal rate, volume and prosody and not pressured; no psychomotor agitation/retardation present; thought process is organized and goal directed; Thought content is on tx; otherwise pertinent to relevant topics and without any delusional content, paranoid ideations or grandiosity; denies any SI/HI. There is no evidence of perceptual disturbance. Patients insight and judgment appear intact. Patient Appearance: Appropriate Patient Orientation: Person, Place, Time and Situation Level of Consciousness: Alert Patient Behavior: Appropriate, Talkative, Cooperative and Good Eye Contact Mood Description: Depressed, Anxious and Apprehensive Affect Description: Apprehensive Patient Cognition Impaired: No Ability to Follow Directions: Good Speech Pattern: Spontaneous Speech Memory Description: Intact Diagnostics Vital Signs (24Hr): Vital Signs - 24 hr 10/16/22 18:21 10/17/22 09:13 Temperature 98.3 F 98.1 F Pulse Rate 72 59 Respiratory Rate 14 Blood Pressure 129/65 116/64 Pulse Oximetry 97 Oxygen Delivery Method Room Air BMI result Body Mass Index 24.9 Labs 10/10/22 12:50 10/11/22 07:28 Medications Medications Current Medications Acetaminophen (Acetaminophen 325 Mg Tablet) 650 mg PO Q6H PRN PRN Reason: Headache/Pain Mild Scale (1-3) Al Hydroxide/Mg Hydroxide (Magnesium Hydrox/Alum Hydrox 30 Ml Oral.Susp) 30 ml PO Q6H PRN PRN Reason: Heartburn/Nausea Clonidine HCl (Clonidine Hcl 0.1 Mg Tablet) 0.1 mg PO TID PRN; Protocol PRN Reason: Anxiety Cyanocobalamin (Cyanocobalamin (Vitamin B-12) 100 Mcg Tablet) 100 mcg PO DAILY [facility] Last Admin: 10/17/22 08:34 Dose: 100 mcg Gabapentin (Gabapentin 300 Mg Capsule) 300 mg PO BID PRN PRN Reason: Anxiety Last Admin: 10/17/22 08:38 Dose: 300 mg Gabapentin (Gabapentin 600 Mg Tablet) 600 mg PO BEDTIME [facility] Last Admin: 10/16/22 20:30 Dose: 600 mg Hydroxyzine HCl (Hydroxyzine Hcl 25 Mg Tablet) 25 mg PO Q6H PRN PRN Reason: Anxiety Last Admin: 10/13/22 20:35 Dose: 25 mg Magnesium Hydroxide (Milk Of Magnesia 30 Ml Oral.Susp) 30 ml PO DAILY PRN PRN Reason: Constipation Methocarbamol (Methocarbamol 750 Mg Tablet) 750 mg PO Q6H PRN PRN Reason: muscle spasm Mirtazapine (Mirtazapine 15 Mg Tablet) 15 mg PO BEDTIME [facility] Last Admin: 10/16/22 20:30 Dose: 15 mg Nicotine Polacrilex (Nicotine Polacrilex 2 Mg Gum) 2 mg BUCCAL Q2H PRN PRN Reason: Smoking Cessation Olanzapine (Olanzapine 10 Mg Tablet) 10 mg PO BEDTIME [facility] Last Admin: 10/16/22 20:30 Dose: 10 mg Pharmacy Consult (Consult Rx Perform Med Rec) 1 each MISCELLANE ONCE PRN PRN Reason: Consult order Trazodone HCl (Trazodone Hcl 50 Mg Tablet) 50 mg PO BEDTIME MRX1 PRN PRN Reason: Insomnia Last Admin: 10/16/22 20:30 Dose: 50 mg Allergies Allergies Allergy/AdvReac Type Severity Reaction Status Date / Time seafood Allergy Unknown Verified 10/10/22 14:07 Assessment & Plan Assessment & Plan (1) Depression: Status: Acute Code(s): F32.A - Depression, unspecified (2) Cocaine use disorder: Status: Acute Code(s): F14.10 - Cocaine abuse, uncomplicated (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 Plan: Admit to M5 on CV Collaterals. Restart Zyprexa and Remeron. Disposition planning. Encourage milieu and group therapy. 10/13/22- Continue current regime Discharge planning. 10/14/22- Continue current regime No med SE Discharge planning. TDN 10/16/22. 10/15/22- Retraction of TDN Increase Remeron to 15 mg HS Change Gabapentin to 300 mg bid prn anxiety and 600 mg hs scheduled Probable discharge 10/2010/16/22 pt stabilizing; doing better continue w/ current tx plan 10/17/22 continue treatment plan Patient educated on: medication risk/benefits and therapeutic strategies Informed Consent: understands Reason for continued inpatient stay Substantial Risk for: harm to self and inability to function Time Spent With Patient Time: Total time managing care of this patient today __10__ minutes.
[2022-10-17] MEDS: hydrOXYzine HCL 25 MG TABLET PO (18:42)
[2022-10-17] MEDS: methocarbamoL 750 MG TABLET PO (18:42)
[2022-10-17 20:25] VITALS: BP 132/82; PULSE 74; TEMP 36.8; O2SAT 98
[2022-10-17] MEDS: OLANZapine 10 MG TABLET PO (20:37)
[2022-10-17] MEDS: Mirtazapine 15 MG TABLET PO (20:37)
[2022-10-17] MEDS: Gabapentin 600 MG TABLET PO (20:37)
[2022-10-17] MEDS: traZODone HCL 50 MG TABLET PO (20:37)
[2022-10-18] MEDS: Cyanocobalamin (Vitamin B-12) 100 MCG TABLET PO (08:26)
[2022-10-18] MEDS: Gabapentin 300 MG CAPSULE PO (08:29)
[2022-10-18 08:55] VITALS: BP 117/60; PULSE 58; RESP 14; TEMP 36.2; O2SAT 100
--- NOTE | 2022-10-18 10:53 | HO.PSYCHPN ---
Subjective Subjective Date of Service: 10/18/22 Reason For Visit: suicidal ideation Subjective Notes: Conditional Voluntary Medical Problems Affecting Mental Status: No Interim History: pt reports he's feeling better; no SI;no HI; denies depression, says he's sleeping well with help of medication. remaining in good behavioral control Medication Compliance: Yes Side effects from medications: No Attending Groups: Yes Review of Systems Acute medical concerns: No Medical Review of Systems: unchanged Review of Systems Review of Systems no changes Constitutional: Reports no additional constitutional complaints, Denies chills, Denies fever(s) and Denies night sweats Eyes: Reports no additional eye complaints, Denies blurry vision, Denies change in vision, Denies diplopia, Denies eye discharge, Denies loss of vision and Denies eye pain Denies dizziness Cardiovascular: Reports no additional cardiovascular complaints, Denies chest pain, Denies lightheadedness, Denies Loss of Consciousness and Denies dyspnea Respiratory: Reports no additional respiratory complaints and Denies dyspnea Gastrointestinal: Reports no additional gastrointestinal complaints, Denies abdominal pain, Denies melena, Denies hematochezia, Denies change in bowel habits and Denies change in stool character Genitourinary: Reports no additional male genitourinary complaints, Denies hematuria, Denies oliguria, Denies difficulty urinating, Denies dysuria, Denies urinary frequency, Denies urinary hesitancy, Denies urinary incontinence and Denies urinary urgency Musculoskeletal: Reports no additional musculoskeletal complaints, Denies numbness and Denies tingling Denies dizziness, Denies loss of vision, Denies numbness and Denies tingling Psychiatric: Reports no additional psychiatric complaints Endocrine: Reports no additional endocrine complaints Hematologic/Lymphatic: Reports no additional hematologic/lymphatic complaints Allergic/Immunologic: Reports no additional allergic/immunologic complaints Mental Status Exam Mental Status Exam Narrative: Pt is alert and oriented; behavior is cooperative, friendly and calm; patient is not in distress; mood is described as better and affect congruent, brighter; eye contact appropriate; Speech is normal rate, volume and prosody and not pressured; no psychomotor agitation/retardation present; thought process is organized and goal directed; Thought content is on tx; otherwise pertinent to relevant topics and without any delusional content, paranoid ideations or grandiosity; denies any SI/HI. There is no evidence of perceptual disturbance. Patients insight and judgment appear intact. Patient Appearance: Appropriate Patient Orientation: Person, Place, Time and Situation Level of Consciousness: Alert Patient Behavior: Appropriate, Talkative, Cooperative and Good Eye Contact Mood Description: Depressed, Anxious and Apprehensive Affect Description: Apprehensive Patient Cognition Impaired: No Ability to Follow Directions: Good Speech Pattern: Spontaneous Speech Memory Description: Intact Diagnostics Vital Signs (24Hr): Vital Signs - 24 hr 10/17/22 20:25 10/18/22 08:55 Temperature 98.3 F 97.2 F Pulse Rate 74 58 Respiratory Rate 14 Blood Pressure 132/82 117/60 Pulse Oximetry 98 100 Oxygen Delivery Method Room Air Room Air BMI result Body Mass Index 24.9 Labs 10/10/22 12:50 10/11/22 07:28 Medications Medications Current Medications Acetaminophen (Acetaminophen 325 Mg Tablet) 650 mg PO Q6H PRN PRN Reason: Headache/Pain Mild Scale (1-3) Al Hydroxide/Mg Hydroxide (Magnesium Hydrox/Alum Hydrox 30 Ml Oral.Susp) 30 ml PO Q6H PRN PRN Reason: Heartburn/Nausea Clonidine HCl (Clonidine Hcl 0.1 Mg Tablet) 0.1 mg PO TID PRN; Protocol PRN Reason: Anxiety Cyanocobalamin (Cyanocobalamin (Vitamin B-12) 100 Mcg Tablet) 100 mcg PO DAILY [facility] Last Admin: 10/18/22 08:26 Dose: 100 mcg Gabapentin (Gabapentin 300 Mg Capsule) 300 mg PO BID PRN PRN Reason: Anxiety Last Admin: 10/18/22 08:29 Dose: 300 mg Gabapentin (Gabapentin 600 Mg Tablet) 600 mg PO BEDTIME [facility] Last Admin: 10/17/22 20:37 Dose: 600 mg Hydroxyzine HCl (Hydroxyzine Hcl 25 Mg Tablet) 25 mg PO Q6H PRN PRN Reason: Anxiety Last Admin: 10/17/22 18:42 Dose: 25 mg Magnesium Hydroxide (Milk Of Magnesia 30 Ml Oral.Susp) 30 ml PO DAILY PRN PRN Reason: Constipation Methocarbamol (Methocarbamol 750 Mg Tablet) 750 mg PO Q6H PRN PRN Reason: muscle spasm Last Admin: 10/17/22 18:42 Dose: 750 mg Mirtazapine (Mirtazapine 15 Mg Tablet) 15 mg PO BEDTIME [facility] Last Admin: 10/17/22 20:37 Dose: 15 mg Nicotine Polacrilex (Nicotine Polacrilex 2 Mg Gum) 2 mg BUCCAL Q2H PRN PRN Reason: Smoking Cessation Olanzapine (Olanzapine 10 Mg Tablet) 10 mg PO BEDTIME [facility] Last Admin: 10/17/22 20:37 Dose: 10 mg Pharmacy Consult (Consult Rx Perform Med Rec) 1 each MISCELLANE ONCE PRN PRN Reason: Consult order Trazodone HCl (Trazodone Hcl 50 Mg Tablet) 50 mg PO BEDTIME MRX1 PRN PRN Reason: Insomnia Last Admin: 10/17/22 20:37 Dose: 50 mg Allergies Allergies Allergy/AdvReac Type Severity Reaction Status Date / Time seafood Allergy Unknown Verified 10/10/22 14:07 Assessment & Plan Assessment & Plan (1) Depression: Status: Acute Code(s): F32.A - Depression, unspecified (2) Cocaine use disorder: Status: Acute Code(s): F14.10 - Cocaine abuse, uncomplicated (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 Plan: Admit to M5 on CV Collaterals. Restart Zyprexa and Remeron. Disposition planning. Encourage milieu and group therapy. 10/13/22- Continue current regime Discharge planning. 10/14/22- Continue current regime No med SE Discharge planning. TDN 10/16/22. 10/15/22- Retraction of TDN Increase Remeron to 15 mg HS Change Gabapentin to 300 mg bid prn anxiety and 600 mg hs scheduled Probable discharge 10/2010/16/22 pt stabilizing; doing better continue w/ current tx plan 10/17/22 continue treatment plan 10/18/22 continue treatment plan Reason for continued inpatient stay Substantial Risk for: harm to self, inability to function and rapid decompensation Time Spent With Patient Time: Total time managing care of this patient today ____ minutes.
[2022-10-18] MEDS: methocarbamoL 750 MG TABLET PO (13:21)
[2022-10-18 18:00] VITALS: BP 135/65; PULSE 80; RESP 16; TEMP 35.9; O2SAT 97
[2022-10-18] MEDS: Gabapentin 600 MG TABLET PO (20:03)
[2022-10-18] MEDS: Mirtazapine 15 MG TABLET PO (20:03)
[2022-10-18] MEDS: OLANZapine 10 MG TABLET PO (20:04)
[2022-10-18] MEDS: traZODone HCL 50 MG TABLET PO (20:21)
[2022-10-19 08:00] VITALS: BP 106/61; PULSE 62; RESP 16; TEMP 37.2; O2SAT 96
[2022-10-19] MEDS: methocarbamoL 750 MG TABLET PO ×2 (08:28→15:43)
[2022-10-19] MEDS: Cyanocobalamin (Vitamin B-12) 100 MCG TABLET PO (08:28)
[2022-10-19] MEDS: Gabapentin 300 MG CAPSULE PO (08:28)
--- NOTE | 2022-10-19 09:53 | P.PNPSI_ITS ---
Subjective Subjective Date of Service: 10/19/22 Reason For Visit: suicidal ideation Interim History: met with patient; discussed with staff pt remains in good mood; no SI; sleeping and eating well and in good behavioral and impulse control. Feels ready for discharge tomorrow. Mental Status Exam Mental Status Exam Narrative: Pt is alert and oriented; behavior is cooperative, friendly and calm; patient is not in distress; unkempt hair but adequate hygiene; mood is described as good and affect congruent, brighter; eye contact appropriate; Speech is normal rate, volume and prosody and not pressured; no psychomotor agitation/retardation present; thought process is organized and goal directed; Thought content is on tx, discharge; otherwise pertinent to relevant topics and without any delusional content, paranoid ideations or grandiosity; denies any SI/HI. There is no evidence of perceptual disturbance. Patients insight and judgment are fair. Diagnostics Vital Signs (24Hr): Vital Signs - 24 hr 10/18/22 18:00 10/19/22 08:00 Temperature 96.7 F L 98.9 F Pulse Rate 80 62 Respiratory Rate 16 16 Blood Pressure 135/65 106/61 Pulse Oximetry 97 96 Oxygen Delivery Method Room Air Room Air BMI result Body Mass Index 24.9 Labs 10/10/22 12:50 10/11/22 07:28 Medications Medications Current Medications Acetaminophen (Acetaminophen 325 Mg Tablet) 650 mg PO Q6H PRN PRN Reason: Headache/Pain Mild Scale (1-3) Al Hydroxide/Mg Hydroxide (Magnesium Hydrox/Alum Hydrox 30 Ml Oral.Susp) 30 ml PO Q6H PRN PRN Reason: Heartburn/Nausea Clonidine HCl (Clonidine Hcl 0.1 Mg Tablet) 0.1 mg PO TID PRN; Protocol PRN Reason: Anxiety Cyanocobalamin (Cyanocobalamin (Vitamin B-12) 100 Mcg Tablet) 100 mcg PO DAILY [facility] Last Admin: 10/19/22 08:28 Dose: 100 mcg Gabapentin (Gabapentin 300 Mg Capsule) 300 mg PO BID PRN PRN Reason: Anxiety Last Admin: 10/19/22 08:28 Dose: 300 mg Gabapentin (Gabapentin 600 Mg Tablet) 600 mg PO BEDTIME [facility] Last Admin: 10/18/22 20:03 Dose: 600 mg Hydroxyzine HCl (Hydroxyzine Hcl 25 Mg Tablet) 25 mg PO Q6H PRN PRN Reason: Anxiety Last Admin: 10/17/22 18:42 Dose: 25 mg Magnesium Hydroxide (Milk Of Magnesia 30 Ml Oral.Susp) 30 ml PO DAILY PRN PRN Reason: Constipation Methocarbamol (Methocarbamol 750 Mg Tablet) 750 mg PO Q6H PRN PRN Reason: muscle spasm Last Admin: 10/19/22 08:28 Dose: 750 mg Mirtazapine (Mirtazapine 15 Mg Tablet) 15 mg PO BEDTIME [facility] Last Admin: 10/18/22 20:03 Dose: 15 mg Nicotine Polacrilex (Nicotine Polacrilex 2 Mg Gum) 2 mg BUCCAL Q2H PRN PRN Reason: Smoking Cessation Olanzapine (Olanzapine 10 Mg Tablet) 10 mg PO BEDTIME [facility] Last Admin: 10/18/22 20:04 Dose: 10 mg Pharmacy Consult (Consult Rx Perform Med Rec) 1 each MISCELLANE ONCE PRN PRN Reason: Consult order Trazodone HCl (Trazodone Hcl 50 Mg Tablet) 50 mg PO BEDTIME MRX1 PRN PRN Reason: Insomnia Last Admin: 10/18/22 20:21 Dose: 50 mg Allergies Allergies Allergy/AdvReac Type Severity Reaction Status Date / Time seafood Allergy Unknown Verified 10/10/22 14:07 Assessment & Plan Assessment & Plan (1) Depression: Status: Acute Code(s): F32.A - Depression, unspecified (2) Cocaine use disorder: Status: Acute Code(s): F14.10 - Cocaine abuse, uncomplicated (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 Plan: Admit to M5 on CV Collaterals. Restart Zyprexa and Remeron. Disposition planning. Encourage milieu and group therapy. 10/13/22- Continue current regime Discharge planning. 10/14/22- Continue current regime No med SE Discharge planning. TDN 10/16/22. 10/15/22- Retraction of TDN Increase Remeron to 15 mg HS Change Gabapentin to 300 mg bid prn anxiety and 600 mg hs scheduled Probable discharge 10/2010/16/22 pt stabilizing; doing better continue w/ current tx plan 10/17/22 continue treatment plan 10/18/22 continue treatment plan 10/19/22 remains stable, good mood, no SI; pt not in imminent risk of harm to self or others and appropriate to continue treatment in the community Patient educated on: diagnosis and medication risk/benefits Informed Consent: understands Reason for continued inpatient stay Substantial Risk for: stable for discharge Time Spent With Patient Time: Total time managing care of this patient today ____ minutes.
[2022-10-19] MEDS: hydrOXYzine HCL 25 MG TABLET PO (13:21)
[2022-10-19 18:51] VITALS: BP 124/70; PULSE 67; TEMP 36.7
[2022-10-19] MEDS: OLANZapine 10 MG TABLET PO (19:17)
[2022-10-19] MEDS: Gabapentin 600 MG TABLET PO (19:17)
[2022-10-19] MEDS: traZODone HCL 50 MG TABLET PO (19:17)
[2022-10-19] MEDS: Mirtazapine 15 MG TABLET PO (19:17)
[2022-10-20 08:18] VITALS: BP 112/65; PULSE 59; RESP 16; TEMP 36.1; O2SAT 96
[2022-10-20] MEDS: Cyanocobalamin (Vitamin B-12) 100 MCG TABLET PO (08:21)
[2022-10-20] MEDS: methocarbamoL 750 MG TABLET PO (08:21)
[2022-10-20] MEDS: Gabapentin 300 MG CAPSULE PO (08:22)
--- NOTE | 2022-10-20 08:57 | P.DS_ITS ---
DS: Providers Provider Date of Service: 10/20/22 Date of admission: 10/10/22 23:00 Date of discharge: 10/20/22 Primary care physician: Bernardo Physician Admitting clinician: Lore Crocker Attending physician on discharge: Dayo Martinez DS: Diagnosis Discharge Diagnosis (1) Depression: Status: Resolved (2) Cocaine use disorder: Status: Acute (3) Substance or medication-induced depressive disorder: Status: Resolved DS: Medications Discharge Medications Home Medications: Home Medications Medication Instructions Recorded Confirmed clonidine HCl 0.1 mg tablet 0.1 mg PO TID PRN Anxiety 10/10/22 10/10/22 gabapentin 300 mg capsule 300 mg PO TID PRN Anxiety 10/10/22 10/10/22 ibuprofen 600 mg tablet 600 mg PO Q6H PRN pain 10/10/22 10/10/22 mirtazapine 7.5 mg tablet 3.75 - 7.5 mg PO BEDTIME 10/10/22 10/10/22 nicotine (polacrilex) 2 mg gum 2 mg PO Q2H PRN Smoking Cessation 10/10/22 10/10/22 olanzapine 5 mg tablet 5 mg PO BEDTIME 10/10/22 10/10/22 Previous Rx's Medication Instructions Recorded cyanocobalamin (vitamin B-12) 100 100 mcg PO DAILY 30 days #30 tabs 10/20/22 mcg tablet gabapentin 300 mg capsule 300 mg PO BID PRN Anxiety 30 days 10/20/22 #60 caps gabapentin 600 mg tablet 600 mg PO BEDTIME 30 days #30 tabs 10/20/22 hydroxyzine HCl 25 mg tablet 25 mg PO Q6H PRN Anxiety 30 days 10/20/22 #60 tabs methocarbamol 750 mg tablet 750 mg PO Q6H PRN muscle spasm 30 10/20/22 days #60 tabs mirtazapine 15 mg tablet 15 mg PO BEDTIME 30 days #30 tabs 10/20/22 olanzapine 10 mg tablet 10 mg PO BEDTIME 30 days #30 tabs 10/20/22 trazodone 50 mg tablet 50 mg PO BEDTIME PRN Insomnia 30 10/20/22 days #30 tabs Mental Status Exam Mental Status Exam Narrative: Pt is alert and oriented; behavior is cooperative, friendly and calm; patient is not in distress; unkempt hair but adequate hygiene; mood is described as good and affect congruent, brighter; eye contact appropriate; Speech is normal rate, volume and prosody and not pressured; no psychomotor agitation/retardation present; thought process is organized and goal directed; Thought content is on tx, discharge; otherwise pertinent to relevant topics and without any delusional content, paranoid ideations or grandiosity; denies any SI/HI. There is no evidence of perceptual disturbance. Patients insight and judgment are fair. DS: Summary Hospital Course Hospital Course: 42 year old male with history of depression and cocaine use disorder presented with increased SI related to non-adherence to treatment, substance use and increased psychosocial stressors. On admission patient was depressed; SI soon fully resolved. Restarted on Zyprexa and eventually also started on mirtazapine which was titrated to good effect. Gabapentin also increased to address chronic neuropathic pain which he reports was significantly helpful. Patient had a few bouts of irritable outbursts however he overall remained in good behavioral and impulse control and appropriate with peers and staff. Depression fully abated and he remained without any SI; he was future oriented and optimistic about remaining sober and stable. Patient felt ready for discharge. Outpatient support established. Patient was not in imminent risk for harm to self or others and appropriate to continue treatment in the community. Time spent discussing smoking cessation with patient: 3 to 10 minutes Status at Discharge Functional status at discharge: independent ambulation Overall status at discharge: patient is back to baseline Time Spent with Patient Time attestation: Total time managing care of this patient today ____ minutes. 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 You must attend this appointment or the psychiatry appointments will be canceled. ) Psych Prescriber: Nitin Barnes ([facility]) [Other] - 11/16/22 1:30 pm (Telehealth-Nitin will call your phone at the appointment time) [facility] [Other] - 12/16/22 1:00 pm (Telehealth ) [facility] Tuberculosis Specialist: Shaquille [Other] - 1 Week (Call Shaquille for support in accessing any further resources or care) Physician,None [Primary Care Provider] - 1 Week (pt referred to [facility] [phone]) Discharge Medications: Discontinued cyanocobalamin (vitamin B-12) 100 mcg tablet 100 mcg PO DAILY olanzapine 5 mg tablet 5 mg PO BEDTIME methocarbamol 750 mg tablet 750 mg PO Q6H PRN (Reason: muscle spasm) ibuprofen 600 mg tablet 600 mg PO Q6H PRN (Reason: pain) mirtazapine 7.5 mg tablet 3.75 - 7.5 mg PO BEDTIME clonidine HCl 0.1 mg tablet 0.1 mg PO TID PRN (Reason: Anxiety) gabapentin 300 mg capsule 300 mg PO TID PRN (Reason: Anxiety) nicotine (polacrilex) 2 mg gum 2 mg PO Q2H PRN (Reason: Smoking Cessation) No Action gabapentin 600 mg tablet 600 mg PO BEDTIME trazodone 50 mg tablet 50 mg PO BEDTIME PRN (Reason: insomnia) olanzapine 10 mg tablet 10 mg PO BEDTIME methocarbamol 750 mg tablet 750 mg PO Q6H PRN (Reason: muscle spasm) gabapentin 300 mg capsule 300 mg PO BID PRN (Reason: anxiety) hydroxyzine HCl 25 mg tablet 25 mg PO Q6H PRN (Reason: anxiety) mirtazapine 15 mg tablet 15 mg PO BEDTIME cyanocobalamin (vitamin B-12) 100 mcg tablet 100 mcg PO DAILY ibuprofen 600 mg tablet 600 mg PO Q6H PRN (Reason: pain) Discharge Orders: Discharge Order (Routine); Ordered 10/20/22 Ordered By: Dayo Martinez Diet: Regular diet Activity on Discharge: As tolerated Stand Alone Forms: Patient Portal Discharge page, Community Support Care Plan Goals: Maintain mood and safe behaviors Take medications as prescribed Continue to pursue sobriety Practice coping skills Continue with outpatient providers and reach out to them as needed Health Concerns: Mood stability and behaviors Sobriety Plan of Treatment: Follow up with your PCP, psychiatric provider and other outpatient providers regarding above concerns Take medications as prescribed Assessment: Risk assessment at time of discharge:? Patient was interviewed prior to discharge and found to be fully oriented and without any SI or HI. Patient has insight and demonstrates good judgment in terms of wanting to pursue treatment. Patient is not in imminent risk of harm to self or others and has a safety plan that includes presenting to the closest ER or calling 911 if feeling unsafe.? Patient has been observed closely by nursing and unit staff throughout admission; patient has not engaged in any behaviors that suggest dangerousness to self or others and has demonstrated appropriate behaviors and impulse control Discharge Date/Time: 10/20/22 11:15
[2022-10-20] MEDS: hydrOXYzine HCL 25 MG TABLET PO (10:36)
== END 2022-10-20 11:15 | disposition home or self-care (01) | DRG 754 ==
LOC: HO.ED 16:30 → HO.PM5 23:07
PROVIDERS: Physician Assistant Medical; Admitting Provider Psychiatry & Neurology Psychiatry; Emergency Provider Internal Medicine; Visit Provider Clinical Nurse Specialist Psychiatric/Mental Health, Adult
DX: F32.9 Major depressive disorder, single episode, unspecified (principal); R45.851 Suicidal ideations; F14.10 Cocaine abuse, uncomplicated; F17.210 Nicotine dependence, cigarettes, uncomplicated; F19.94 Other psychoactive substance use, unspecified with psychoactive substance-induced mood disorder; Z20.822 Contact with and (suspected) exposure to COVID-19; Z71.6 Tobacco abuse counseling; Z79.899 Other long term (current) drug therapy
CPT/HCPCS: 36415; 80053; 80061; 80307; 81001; 83735; 85025; 87635; 93005; 99285; S9485

== ENCOUNTER 2022-10-28 16:44 | Emergency (ER) | payer OTHER, MEDICAID, SELFPAY ==
--- NOTE | 2022-10-28 17:01 | ED.PSYCH ---
HPI - Psych General Chief Complaint: Psychiatric Symptoms Stated Complaint: crisis Time Seen by Provider: 10/28/22 17:50 Source: patient Mode of arrival: ambulatory Limitations: no limitations History of Present Illness HPI Narrative: Patient comes in the emergency room complaining of suicidal ideation. Patient states that he was in and 5, patient requested to be discharged on October 10. Patient since then has been drinking alcohol, using drugs. Patient states that he regrets not staying for the full treatment. Patient reporting vague SI without plan. Related Data Home Medications Medication Instructions Recorded Confirmed cyanocobalamin (vitamin B-12) 100 100 mcg PO DAILY 10/28/22 10/28/22 mcg tablet gabapentin 300 mg capsule 300 mg PO BID PRN anxiety 10/28/22 10/28/22 gabapentin 600 mg tablet 600 mg PO BEDTIME 10/28/22 10/28/22 hydroxyzine HCl 25 mg tablet 25 mg PO Q6H PRN anxiety 10/28/22 10/28/22 ibuprofen 600 mg tablet 600 mg PO Q6H PRN pain 10/28/22 10/28/22 methocarbamol 750 mg tablet 750 mg PO Q6H PRN muscle spasm 10/28/22 10/28/22 mirtazapine 15 mg tablet 15 mg PO BEDTIME 10/28/22 10/28/22 olanzapine 10 mg tablet 10 mg PO BEDTIME 10/28/22 10/28/22 trazodone 50 mg tablet 50 mg PO BEDTIME PRN insomnia 10/28/22 10/28/22 Allergies Allergy/AdvReac Type Severity Reaction Status Date / Time seafood Allergy Unknown Verified 10/10/22 14:07 Review of Systems Review of Systems: Constitutional : No Weight loss, No Fever, No Chills, No Night Sweats, No Fatigue, No Malaise ENT/Mouth : No Hearing loss, No Ear Pain, No Nasal Congestion, No Sinus Pain, No Hoarseness, No sore throat, No Rhinorrhea, No Swallowing Difficulty Eyes: No Eye Pain, No Swelling, No Redness, No Foreign Body, No Discharge, No Vision Changes Cardiovascular : No Chest Pain, No SOB, No Dyspnea on Exertion, No Orthopnea, No Edema, No Palpitations Respiratory : No Cough, No Sputum, No Wheezing, No Smoke Exposure, No Dyspnea Gastrointestinal : No Nausea, No Vomiting, No Diarrhea, No Constipation, No abdominal Pain, No Hematochezia, No Melena Genitourinary : no irregular bleeding, No Dysuria, No Urinary Frequency, No Hematuria, No Urinary Incontinence, No Urgency, No Flank Pain, No Urinary Flow Changes, No Hesitancy Musculoskeletal : No joint pain, No Myalgias, No Joint Swelling Skin : No Skin Lesions, No rash Neuro : No Weakness, No Numbness, No Paresthesias, No Loss of Consciousness, No Dizziness, No Headache Psych : Complaining of anxiety, depression, vague SI, admits to drug use Heme/Lymph: No Bruising, No Bleeding,No Lymphadenopathy Endocrine : No Polyuria, No Polydipsia, No Temperature Intolerance [facility] Past Medical History Medical History Cocaine use disorder Social History Social History Household Members: Family Housing: House Do you presently have visiting nurse or other home services: No Patient Tobacco Use Status: Current everyday Tobacco user Tobacco use type: Cigarette Cigarettes Per Day: 10 e-Cigarette/Vaping Use: Never Used Second Hand Smoke Exposure: No Substance Use Type: Crack/Cocaine and Marijuana Advance Directives: No Advance Directives Information Provided: No service: No Sexual orientation: Straight/Heterosexual Physical Exam Vital Signs: Vital Signs: Last Vital Signs Temp 97.9 F 10/28/22 17:02 Pulse 62 10/28/22 17:02 Resp 18 10/28/22 17:02 BP 145/83 H 10/28/22 17:02 Pulse Ox 97 10/28/22 17:02 O2 Del Method Room Air 10/28/22 17:02 BMI result Body Mass Index 29.1 Const: Other: Appearance: Alert. Oriented X3. No acute distress. Eyes: Pupils equal, round and reactive to light. ENT: Pharynx normal. Neck: Normal inspection. Neck supple. No lymph nodes noted. No crepitus CVS: Normal heart rate and rhythm. Pulses normal. Normal S1 and S2 Respiratory: No respiratory distress. Breath sounds normal. No Wheezing. No rales Abdomen: Soft and nontender. No rigidity. No distention. Skin: Skin warm and dry. Normal skin color. Normal skin turgor. Extremities: No lower extremity edema. No Lacerations. No Rash Neuro: Oriented X 3. No motor deficit. No sensory deficit. Moving all extremities. No slurred speech. CN 2 through 12 grossly intact Psych: calm, cooperative, normal affect, coherent Course Course Course Narrative: RME - 42 yo with a hx of depression, cocaine use disorder and substance or medication-induced depressive disorder was previously admitted from 10/10 to 10/20 presents to ER with depression and SI. He reports no plan. He reports ETOH use having 25 nips of fireball a day, last was yesterday. Plan: medical clearance and CARE team evaluation Medical Decision Making Medical Decision Making [facility] Narrative: -patient's urine toxicology positive for cocaine -care team consult pending -physician observation started at 20:00 -I was informed by the care team that this patient is in the Behavioral Health pod and his girlfriend is also a patient in the Behavioral Health pod. The patient and his girlfriend were not aware that the clinician speaks [place], patient and his girlfriend are trying to get admitted tothether, both are homeless. Pt and his girlfriend have presented previously to the behavioral health pod for similar complaint Patient will likely be going to a dual diagnosis facility Lab Data 10/28/22 17:18 10/28/22 17:18 Labs: Lab Results 10/28/22 10/28/22 10/28/22 Range/Units 17:18 17:18 17:18 WBC 5.9 (4.8-10.8) X10*3/uL RBC 4.49 L (4.60-5.80) X10*6/uL Hgb 13.5 L (14.0-18.0) g/dl Hct 40.4 L (42.0-52.0) % MCV 90.0 (80.0-98.0) fL MCH 30.1 (27.0-33.0) pg MCHC 33.4 (31.0-36.0) g/dl RDW 12.9 (11.0-16.0) % Plt Count 213 (160-400) X10*3/uL MPV 9.6 (9.4-12.4) fL Immature Gran % (Auto) 0.2 (0.0-0.4) % Neut % (Auto) 54.0 (45-73) % Lymph % (Auto) 36.5 (20-40) % Bandera % (Auto) 6.3 (2-11) % Eos % (Auto) 2.7 (0-4) % Baso % (Auto) 0.3 (0-2) % Lymph # (Auto) 2.1 (1.2-4.9) X10*3/uL Bandera # (Auto) 0.4 (0.1-1.2) X10*3/uL Eos # (Auto) 0.2 (0.0-0.4) X10*3/uL Baso # (Auto) 0.0 (0.0-0.2) X10*3/uL Abs Immat Gran (auto) 0.01 (0.00-0.03) X10*3/uL Absolute Neuts (auto) 3.2 (2.0-8.3) x10*3/uL Absolute Nucleated RBC 0.000 (0.0-0.012) X10*3/uL Nucleated RBC % (auto) 0.0 (0.0-0.2) /100WBC Sodium 144 (135-145) mmol/L Potassium 3.6 D (3.3-5.1) mmol/L Chloride 106 (96-108) mmol/L Carbon Dioxide 28 (22-29) mmol/L Anion Gap 14 (12-20) BUN 18 H (9-16) mg/dL Creatinine 0.91 (0.5-1.4) mg/dL Estim Creat Clear Calc 107.2 Estimated GFR > 60 Random Glucose 105 (60-115) mg/dL Calcium 9.3 D (8.4-10.2) mg/dL Magnesium 2.0 (1.6-2.6) mg/dL Total Bilirubin 0.4 (0.0-1.0) mg/dL Direct Bilirubin 0.1 (0.0-0.5) mg/dL AST 24 (5-37) U/L ALT 75 H (0-40) U/L Alkaline Phosphatase 73 (39-117) U/L Total Protein 7.1 (6.5-8.0) g/dL Albumin 4.0 (3.5-5.0) g/dL Urine Opiates Screen (Not Detect) Urine Fentanyl Screen (Not Detect) Ur Barbiturates Screen (Not Detect) Ur Phencyclidine Scrn (Not Detect) Ur Amphetamines Screen (Not Detect) U Benzodiazepines Scrn (Not Detect) Urine Cocaine Screen (Not Detect) U Marijuana (THC) Screen (Not Detect) Ethyl Alcohol mg/dL COVID-19 (ALYSSA) Negative (Negative) COVID-19 Clin Com See Note 10/28/22 10/28/22 Range/Units 17:18 17:18 WBC (4.8-10.8) X10*3/uL RBC (4.60-5.80) X10*6/uL Hgb (14.0-18.0) g/dl Hct (42.0-52.0) % MCV (80.0-98.0) fL MCH (27.0-33.0) pg MCHC (31.0-36.0) g/dl RDW (11.0-16.0) % Plt Count (160-400) X10*3/uL MPV (9.4-12.4) fL Immature Gran % (Auto) (0.0-0.4) % Neut % (Auto) (45-73) % Lymph % (Auto) (20-40) % Bandera % (Auto) (2-11) % Eos % (Auto) (0-4) % Baso % (Auto) (0-2) % Lymph # (Auto) (1.2-4.9) X10*3/uL Bandera # (Auto) (0.1-1.2) X10*3/uL Eos # (Auto) (0.0-0.4) X10*3/uL Baso # (Auto) (0.0-0.2) X10*3/uL Abs Immat Gran (auto) (0.00-0.03) X10*3/uL Absolute Neuts (auto) (2.0-8.3) x10*3/uL Absolute Nucleated RBC (0.0-0.012) X10*3/uL Nucleated RBC % (auto) (0.0-0.2) /100WBC Sodium (135-145) mmol/L Potassium (3.3-5.1) mmol/L Chloride (96-108) mmol/L Carbon Dioxide (22-29) mmol/L Anion Gap (12-20) BUN (9-16) mg/dL Creatinine (0.5-1.4) mg/dL Estim Creat Clear Calc Estimated GFR Random Glucose (60-115) mg/dL Calcium (8.4-10.2) mg/dL Magnesium (1.6-2.6) mg/dL Total Bilirubin (0.0-1.0) mg/dL Direct Bilirubin (0.0-0.5) mg/dL AST (5-37) U/L ALT (0-40) U/L Alkaline Phosphatase (39-117) U/L Total Protein (6.5-8.0) g/dL Albumin (3.5-5.0) g/dL Urine Opiates Screen Not Detected (Not Detect) Urine Fentanyl Screen Not Detected (Not Detect) Ur Barbiturates Screen Not Detected (Not Detect) Ur Phencyclidine Scrn Not Detected (Not Detect) Ur Amphetamines Screen Not Detected (Not Detect) U Benzodiazepines Scrn Not Detected (Not Detect) Urine Cocaine Screen POSITIVE H (Not Detect) U Marijuana (THC) Screen POSITIVE H (Not Detect) Ethyl Alcohol < 10 mg/dL COVID-19 (ALYSSA) (Negative) COVID-19 Clin Com Discharge Plan Discharge Clinical Impression: Cocaine use disorder, Bipolar disorder Patient Disposition: Still a Patient Prescriptions: No Action gabapentin 600 mg tablet 600 mg PO BEDTIME trazodone 50 mg tablet 50 mg PO BEDTIME PRN (Reason: insomnia) olanzapine 10 mg tablet 10 mg PO BEDTIME methocarbamol 750 mg tablet 750 mg PO Q6H PRN (Reason: muscle spasm) gabapentin 300 mg capsule 300 mg PO BID PRN (Reason: anxiety) hydroxyzine HCl 25 mg tablet 25 mg PO Q6H PRN (Reason: anxiety) mirtazapine 15 mg tablet 15 mg PO BEDTIME cyanocobalamin (vitamin B-12) 100 mcg tablet 100 mcg PO DAILY ibuprofen 600 mg tablet 600 mg PO Q6H PRN (Reason: pain)
[2022-10-28 17:02] VITALS: BP 145/83; PULSE 62; RESP 18; TEMP 36.6; O2SAT 97; BMI 29.1
[2022-10-28 17:24] LABS: MANUAL DIFF FLAG NO
[2022-10-28 17:26] LABS: Basophils Percent Auto 0.3 % (0-2); Eosinophils Absolute Auto 0.2 X10*3/uL (0.0-0.4); Eosinophils Percent Auto 2.7 % (0-4); Hematocrit 40.4 % (42.0-52.0); Hemoglobin 13.5 g/dl (14.0-18.0); Imm Gran Abs Auto 0.01 X10*3/uL (0.00-0.03); Imm Gran Pct Auto 0.2 % (0.0-0.4); Lymphocytes Absolute Auto 2.1 X10*3/uL (1.2-4.9); Lymphocytes Percent Auto 36.5 % (20-40); Mean Corpuscular HGB Conc 33.4 g/dl (31.0-36.0); Mean Corpuscular Hemoglobin 30.1 pg (27.0-33.0); Mean Platelet Volume 9.6 fL (9.4-12.4); Monocytes Absolute Auto 0.4 X10*3/uL (0.1-1.2); Monocytes Percent Auto 6.3 % (2-11); Neutrophils Absolute Auto 3.2 x10*3/uL (2.0-8.3); Platelet Count 213 X10*3/uL (160-400); Red Blood Count 4.49 X10*6/uL (4.60-5.80); Red Cell Distribution Width 12.9 % (11.0-16.0); White Blood Count 5.9 X10*3/uL (4.8-10.8)
[2022-10-28 17:36] LABS: Amphetamine Screen Urine Not Detected (Not Detect); Barbiturates, Urine Not Detected (Not Detect); Benzodiazepines Screen Urine Not Detected (Not Detect); Cannabinoid Screen Urine POSITIVE (Not Detect); Cocaine Screen Urine POSITIVE (Not Detect); Fentanyl, urine Not Detected (Not Detect); Opiate Screen Urine Not Detected (Not Detect); Phencyclidine Screen Urine Not Detected (Not Detect)
[2022-10-28 17:40] LABS: COVID-19 Test Negative (Negative); Ethanol < 10 mg/dL; IDNOW Serial# 6674DD1D
[2022-10-28 17:41] LABS: Alanine Aminotransferase 75 U/L (0-40); Alkaline Phosphatase 73 U/L (39-117); Anion Gap 14 (12-20); Aspartate Amino Transferase 24 U/L (5-37); Bilirubin Direct 0.1 mg/dL (0.0-0.5); Bilirubin Total 0.4 mg/dL (0.0-1.0); Blood Urea Nitrogen 18 mg/dL (9-16); Calcium 9.3 mg/dL (8.4-10.2); Carbon Dioxide 28 mmol/L (22-29); Chloride 106 mmol/L (96-108); Creatinine Clr Calc Pharmacy 107.2; Estimated Glomerular Filt Rate > 60; Glucose Random 105 mg/dL (60-115); Potassium 3.6 mmol/L (3.3-5.1); Sodium 144 mmol/L (135-145); Total Protein 7.1 g/dL (6.5-8.0)
--- NOTE | 2022-10-28 19:24 | PHA.MEDREC ---
Pharmacy Consult ? Medication Reconciliation RN has completed the medication reconciliation.Pharmacy reviewed
[2022-10-29 05:08] VITALS: BP 161/99; PULSE 110; RESP 18; TEMP 36.9; O2SAT 98
--- NOTE | 2022-10-29 05:22 | PC.NURSE ---
Patient slept through the night, no distress observed/reported, patient was assessed by care team, disposition section 12 dual diagnosis bed search, patient not happy with disposition he wanted to be admitted either at M3 or M5, med rec completed/pending provider's approval, behavior non concerning, VSS. will continue to monitor.
--- NOTE | 2022-10-29 07:18 | MHC.EDTECH ---
pt refused breakfast this morning, rn aware
[2022-10-29 09:04] VITALS: BP 118/63; PULSE 52; RESP 12; TEMP 36.6; O2SAT 98
[2022-10-29] MEDS: Gabapentin 300 MG CAPSULE PO (11:10)
[2022-10-29] MEDS: Cyanocobalamin (Vitamin B-12) 100 MCG TABLET PO (11:10)
[2022-10-29] MEDS: hydrOXYzine HCL 25 MG TABLET PO (11:11)
--- NOTE | 2022-10-29 14:14 | MHC.CARE ---
Pt was seen for mental status update and discharged from ED with community provider referrals and resources.
--- NOTE | 2022-10-29 15:33 | MHC.CARE ---
@ Referral was emailed to [facility] for outpatient therapy. Will call to confirm tomorrow.
== END 2022-10-29 12:19 | disposition home or self-care (01) ==
PROVIDERS: Physician Assistant; Emergency Provider Emergency Medicine
DX: F14.99 Cocaine use, unspecified with unspecified cocaine-induced disorder (principal); F31.9 Bipolar disorder, unspecified; R45.851 Suicidal ideations; F19.10 Other psychoactive substance abuse, uncomplicated; Z20.822 Contact with and (suspected) exposure to COVID-19; Z79.899 Other long term (current) drug therapy; F17.210 Nicotine dependence, cigarettes, uncomplicated
CPT/HCPCS: 80048; 80076; 80307; 83735; 85025; 87635; 99284; S9485

== ENCOUNTER 2023-10-30 00:24 | Inpatient (IN) | payer OTHER, SELFPAY ==
--- OUTSIDE RECORDS SUMMARY | 2023-10-30 00:36 | XMS_ITS | Continuity of Care Document ---
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 Role Phone Not on Staff, PCP Primary Care Physician Unavail able Encounter [facility] Date(s): 07/08/22 - 07/08/[address] [id number]- Discharge Disposition: A-D/C Walkout Attending Physician: Not on Staff, Attending MD Admitting Physician: Not on Staff, Admitting MD Referring Physician: Not on Staff, Referring MD Allergies, Adverse Reactions, Alerts Substance Reaction Severity Status Seafood Active Immunizations Given and Recorded Vaccine Date Status Refusal Reason SARS-CoV-2 (COVID-19) mRNA-1273 vaccine 07/26/21 R ecorded SARS-CoV-2 (COVID-19) mRNA-1273 vaccine 05/24/21 R ecorded Medications diclofenac 1% topical gel 1 application, Topically, 4 times a day, # 100 Gm, 0 Refills, Maintenance, 03/14/21 20:03:00 EDT, Gel, [id number], Partial fill upon patient request if the prescription is for a schedule II opioid drug. Start Date: 03/14/21 Status: Ordered ibuprofen 600 mg oral tablet 600 mg, 1, tablet, By Mouth, Every 6 hours, # 30 tablet, Refills 0, Tot. Refills 0, Maintenance, 02/14/21 21:09:00 EDT, Route to Pharmacy Electronically, [id number], Partial fill upon patientrequest if the prescription is for a schedule II op... Start Date: 02/14/21 Status: Ordered lidocaine 5% topical film 1 patch, Topically, Daily, PRN Pain , Mild, remove after 12 hours, # 13 each, 0 Refills, Maintenance, 03/14/21 20:03:00 EDT, Film, [id number], Partial fill upon patient request if the prescription is for a schedule II opioid drug., 1 patch Top... Start Date: 03/14/21 Status: Ordered nirmatrelvir-ritonavir 150 mg-100 mg oral tablet See Instructions, 3 pill twice daily for 5 days, # 30 each, 0 Refills, Maintenance, 08/18/21 13:51:00 EDT, [id number], Partial fill upon patient request if the prescription is for a schedule II opioid drug., 3 pill twice daily for 5 d... Start Date: 08/18/21 Status: Ordered nirmatrelvir-ritonavir 150 mg-100 mg oral tablet See Instructions, 1 pill twice daily for 5 days, # 10 each, 0 Refills, Maintenance, 08/18/21 12:52:00 EDT, [facility] #[id number], Partial fill upon patient request if the prescription is for a schedule II opioid drug., 1 pill twice daily for 5 d... Start Date: 08/18/21 Status: Ordered Valium 5 mg oral tablet 5 mg, 1, tablet, By Mouth, 2 times a day, PRN, # 10 tablet, Refills 0, Tot. Refills 0, Maintenance,Pain , Moderate, 02/14/21 21:09:00 EDT, Route to Pharmacy Electronically, [id number], Partial fill upon patient request if the prescription is... Start Date: 02/14/21 Status: Ordered Problem List Condition Confirmation Course Effective Dates Status Health St atus Informant COVID-19 1 Confirmed 08/18/21 Active 1Problem added by Discern Expert Vital Signs Most recent to oldest [Reference Range]: 1 2 Weight 79.5 kg (07/08/22 7:41 AM) Oxygen Saturation [94-100 %] 99 % (07/08/22 7:41 AM) 99 % (07/08/22 7:35 AM) Pulse Rate [55-90 bpm] 82 bpm (07/08/22 7:41 AM) 79 bpm (07/08/22 7:35 AM) Blood Pressure [90-138/55-84 mm Hg] 135/ 81mm Hg (07/08/22 7:41 AM) Respiratory Rate [16-30 br/min] 16 br/mi n (07/08/22 7:41 AM) Temperature [96.8-100.4 DegF] 99.1 DegF (07/08/22 7:41 AM) Mode of Delivery (Oxygen) Room air (07/08/22 7:41 AM) Room air (07/08/22 7:35 AM) Blood pressure sites Arm, left (07/08/22 7:41 AM) Temperature Route Oral (07/08/22 7:41 AM) Weight Obtained Via Patient/family state d (07/08/22 7:41 AM) Social History Social History Type Response Smoking Status Smoker, current stat us unknown entered on: 06/09/22 Sex Patient Care team information Care Team Personnel Name: Not on Staff, PCP Position: S Physician (General Medicine) Member Role: PCP Care Team Related Persons Name: HARLEY VILLA Address: [place] [address] Name: ANA ROSA WAGNER Address: [place] [address]
--- OUTSIDE RECORDS SUMMARY | 2023-10-30 00:36 | XMS_ITS | Continuity of Care Document ---
Author Organization [facility] ter Address [address] [place] [address]- Care Team Providers Care Metal Fabricating Supervisor Name Role Phone Sumit RICE, Stephania Primary Care Physician [phone] [id number] Date(s): 06/09/22 - 06/09/[address] [address]- Discharge Disposition: A-D/C Walkout Attending Physician: Not [...] each, 0 Refills, Maintenance, 08/18/21 13:51:00 EDT, [facility] #[id number], Partial fill upon patient request if the prescription is for a schedule II opioid drug., 3 pill twice daily for 5 d... Start Date: 08/18/21 Status: Ordered nirmatrelvir-ritonavir 150 mg-100 mg oral tablet See Instructions, 1 pill twice daily for 5 days, # 10 each, 0 Refills, Maintenance, 08/18/21 12:52:00 EDT, [facility] #[id number], Partial fill upon patient request if the prescription is for a schedule II opioid drug., 1 pill twice daily for 5 d... Start Date: 08/18/21 Status: Ordered Valium 5 mg oral tablet 5 mg, 1, tablet, By Mouth, 2 times a day, PRN, # 10 tablet, Refills 0, Tot. Refills 0, Maintenance,Pain , Moderate, 02/14/21 21:09:00 EDT, Route to Pharmacy Electronically, [facility]/pharmacy #[id number], Partial fill upon patient request if the prescription is... Start Date: 02/14/21 Status: Ordered Problem List Condition Confirmation Course Effective Dates Status Health St atus Informant COVID-19 1 Confirmed 08/18/21 Active 1Problem added by Discern Expert Vital Signs Most recent to oldest [Reference Range]: 1 2 3 Height 168 cm (06/09/22 6:08 AM) Weight 79.6 kg (06/09/22 6:08 AM) Oxygen Saturation [94-100 %] 99 % (06/09/22 9:58 AM) 99 % (06/09/22 8:03 AM) 97 % (06/09/22 6:08 AM) Pulse Rate [55-90 bpm] 54 bpm *L* (06/09/22 9:58 AM) 59 bpm (06/09/22 8:03 AM) 65 bpm (06/09/22 6:08 AM) Body Mass Index [18.5-24.99 kg/m2] 28.2 kg/m2 *H* (06/09/22 6:08 AM) Blood Pressure [90-138/55-84 mm Hg] 123/75mm Hg (06/09/22 9:58 AM) 105/54mm Hg (06/09/22 8:03 AM) 120/66mm Hg (06/09/22 6:08 AM) Respiratory Rate [16-30 br/min] 18 br/min (06/09/22 6:08 AM) 18 br/min (06/09/22 6:02 AM) Temperature [96.8-100.4 DegF] 98.1 DegF (06/09/22 9:58 AM) 97.3 DegF (06/09/22 8:03 AM) 98.2 DegF (06/09/22 6:08 AM) Mode of Delivery (Oxygen) Room air (06/09/22 9:58 AM) Room air (06/09/22 8:03 AM) Room air (06/09/22 6:08 AM) Blood pressure sites Arm, left (06/09/22 9:58 AM) Arm, left (06/09/22 8:03 AM) Arm, left (06/09/22 6:08 AM) Temperature Route Oral (06/09/22 9:58 AM) Oral (06/09/22 8:03 AM) Oral (06/09/22 6:08 AM) Dry Weight 79.6 kg (06/09/22 6:08 AM) Weight Obtained Via Patient/family state d (06/09/22 6:08 AM) Dry Weight Obtained Via Patient/family s tated (06/09/22 6:08 AM) Social History Social History Type Response Smoking Status Smoker, current stat us unknown entered on: 06/09/22 Sex EKG study * Event Display: ECG 12-Lead Authored Date: Please click on pdf link to open report * Event Display: ECG 12-Lead Authored Date: Ventricular Rate: 62 BPM Atrial Rate: 62 BPM P-R Interval: 152 ms QRS Duration: 98 ms Q-T Interval: 448 ms QTC Calculation(Bazett): 454 ms P Dillon: 43 degrees R Dillon: 54 degrees T Dillon: 35 degrees Normal sinus rhythm Poor R wave progression in V1-V3 may be normal variant or due to anteroseptal infarct or misplaced leads Abnormal ECG When compared with ECG of 05-JUN-2022 11:12, No significant change was found Confirmed by LARRY WILSON ([id number]) on 06/09/2022 11:37:30 AM [place]: LARRY WILSON * Event Display: EKG Authored Date: Patient Care team information Care Team Personnel Name: Sumit RICE, Stephania Position: Reference Physician Member Role: PCP Address: Address: [address] [place] [address] [place] [address]- Care Team Related Persons Name: HARLEY VILLA Address: [place] [address] Name: YANNICK WAGNER Address: home [address] [place] [id number]
--- OUTSIDE RECORDS SUMMARY | 2023-10-30 00:37 | XMS_ITS | Continuity of Care Document ---
Author Organization [facility] ter Address [address] [place] [address]- Care Team Providers Care Living Nurse Name Role Phone Not on Staff, PCP Primary Care Physician Unavail able [place] [facility] [place] 02/14/[place] - 02/14/[address] [address]- Encounter Diagnosis Lower back pain(Final) - 02/14/21 Discharge Disposition: A-D/C Home Attending Physician: Sierra Bateman MD Admitting Physician: Sierra Bateman MD Referring Physician: Not on Staff, Referring MD Allergies, Adverse Reactions, Alerts Substance Reaction Severity Status NKA Active Medications ibuprofen 600 mg oral tablet 600 mg, 1, tablet, By Mouth, Every 6 hours, # 30 tablet, Refills 0, Tot. Refills 0, Maintenance, 02/14/21 21:09:00 EDT, Route to Pharmacy Electronically, [facility]/pharmacy #[id number], Partial fill upon patientrequest if the prescription is for a schedule II op... Start Date: 02/14/21 Status: Ordered Valium 5 mg oral tablet 5 mg, 1, tablet, By Mouth, 2 times a day, PRN, # 10 tablet, Refills 0, Tot. Refills 0, Maintenance,Pain , Moderate, 02/14/21 21:09:00 EDT, Route to Pharmacy Electronically, [facility]/pharmacy #[id number], Partial fill upon patient request if the prescription is... Start Date: 02/14/21 Status: Ordered Vital Signs Most recent to oldest [Reference Range]: 1 2 3 Oxygen Saturation [94-100 %] 100 % (02/14/21 9:26 PM) 100 % (02/14/21 6:29 PM) 99 % (02/14/21 4:01 PM) Pulse Rate [55-90 bpm] 55 bpm (02/14/21 9:26 PM) 50 bpm *L* (02/14/21 6:29 PM) 63 bpm (02/14/21 4:01 PM) Blood Pressure [90-138/55-84 mm Hg] 133/80mm Hg (02/14/21 9:26 PM) 126/72mm Hg (02/14/21 6:29 PM) 113/89mm Hg (02/14/21 4:01 PM) Respiratory Rate [16-30 br/min] 16 br/min (02/14/21 9:26 PM) 18 br/min (02/14/21 6:29 PM) 16 br/min (02/14/21 4:01 PM) Temperature [96.8-100.4 DegF] 98.4 DegF (02/14/21 6:29 PM) 98.3 DegF (02/14/21 4:01 PM) 99 DegF (02/14/21 12:45 PM) Mode of Delivery (Oxygen) Room air (02/14/21 6:29 PM) Room air (02/14/21 4:01 PM) Room air (02/14/21 12:45 PM) Blood pressure sites Arm, left (02/14/21 6:29 PM) Arm, right (02/14/21 4:01 PM) Arm, left (02/14/21 12:45 PM) Temperature Route Oral (02/14/21 6:29 PM) Oral (02/14/21 4:01 PM) Oral (02/14/21 12:45 PM)
--- OUTSIDE RECORDS SUMMARY | 2023-10-30 00:37 | XMS_ITS | Continuity of Care Document ---
Author Organization [facility] ter Address [address] [place] [address]- Care Team Providers Care Player Manager Name Role Phone Not on Staff, PCP Primary Care Physician Unavail able Encounter [facility] Date(s): 08/18/21 - 08/18/[address] [address]- Encounter Diagnosis COVID-19(Final) - 08/18/21 Discharge Disposition: A-D/C Home Attending Physician: Jacque Chacon DO Admitting Physician: Jacque Chacon DO Referring Physician: Not on Staff, Referring MD Allergies, Adverse Reactions, Alerts No Known Allergies Medications diclofenac 1% topical gel 1 application, [...] each, 0 Refills, Maintenance, 08/18/21 13:51:00 EDT, [facility] #[id number], Partial fill upon patient request if the prescription is for a schedule II opioid drug., 3 pill twice daily for 5 d... Start Date: 08/18/21 Status: Ordered nirmatrelvir-ritonavir 150 mg-100 mg oral tablet See Instructions, 1 pill twice daily for 5 days, # 10 each, 0 Refills, Maintenance, 08/18/21 12:52:00 EDT, [facility] #[id number], Partial fill upon patient request if the prescription is for a schedule II opioid drug., 1 pill twice daily for 5 d... Start Date: 08/18/21 Status: Ordered Valium 5 mg oral tablet 5 mg, 1, tablet, By Mouth, 2 times a day, PRN, # 10 tablet, Refills 0, Tot. Refills 0, Maintenance,Pain , Moderate, 02/14/21 21:09:00 EDT, Route to Pharmacy Electronically, [facility]/pharmacy #[id number], Partial fill upon patient request if the prescription is... Start Date: 02/14/21 Status: Ordered Problem List Condition Effective Dates Status Health Status Inform ant COVID-19(Confirmed) 1 08/18/21 Active 1Problem added by Discern Expert Results Radiology Reports * Exam Date Time Procedure Performing Provider Status 08/18/21 9:49 AM Chest 2 Views Frontal and Lat Bein , Da na; Auth (Verified) Notes: (Chest 2 Views Frontal and Lat) Reason For Exam: Angina RESULT: Chest 2 Views Frontal and Lat Chest 2 Views Frontal and Lat HX OF PRESENT ILLNESS: Pt states that he is having intermittent chest pain that he believes is do to anxiety. States that is worsens when he is upset. States he has had a lot of stressors and has notbeen sleeping well. Pt was seen here a couple days ago with same complaint.; Reason: Angina; Clinical Question(s): CHF / CHF COMPARISON: 08/12/2021 FINDINGS: LINES AND TUBES: None. LUNGS AND PLEURA: Clear lungs. Normal pulmonary vascularity. No pleural effusion. No pneumothorax. HEART, MEDIASTINUM AND NEVAEH: Heart is normal in size. Normal mediastinal and hilar contour. BONES AND SOFT TISSUES: No acute abnormality. IMPRESSION: No evidence of acute abnormality. WSN: [id number] Ordering Physician: Adele Quinonez Dictated By: Sandeep العراقي MD Dictated Date/Time: 08/18/21 9:50 am Reviewed By: Sandeep العراقي MD Signed By: Sandeep العراقي MD Signed Date/Time: 08/18/21 9:50 am Transcribed By: SUE Transcribed Date/Time: 08/18/21 9:50 am Vital Signs Most recent to oldest [Reference Range]: 1 2 3 Oxygen Saturation [94-100 %] 96 % (08/18/21 8:10 PM) 96 % (08/18/21 7:24 PM) 98 % (08/18/21 5:40 PM) Pulse Rate [55-90 bpm] 61 bpm (08/18/21 8:10 PM) 61 bpm (08/18/21 7:24 PM) 72 bpm (08/18/21 5:40 PM) Blood Pressure [90-138/55-84 mm Hg] 126/79mm Hg (08/18/21 8:10 PM) 123/67mm Hg (08/18/21 7:24 PM) 120/69mm Hg (08/18/21 5:40 PM) Respiratory Rate [16-30 br/min] 23 br/min (08/18/21 8:10 PM) 15 br/min *L* (08/18/21 7:24 PM) 18 br/min (08/18/21 5:40 PM) Temperature [96.8-100.4 DegF] 98.0 DegF (08/18/21 8:10 PM) 98.1 DegF (08/18/21 8:47 AM) Mode of Delivery (Oxygen) Room air (08/18/21 8:10 PM) Room air (08/18/21 5:40 PM) Room air (08/18/21 1:22 PM) Blood pressure sites Arm, right (08/18/21 1:22 PM) Arm, right (08/18/21 8:47 AM) Temperature Route Oral (08/18/21 8:10 PM) Oral (08/18/21 8:47 AM)
--- OUTSIDE RECORDS SUMMARY | 2023-10-30 00:37 | XMS_ITS | Continuity of Care Document ---
Author Organization [facility] ter Address [address] [place] [address]- Care Team Providers Care Fur Examiner Name Role Phone Not on Staff, PCP Primary Care Physician Unavail able [place] [facility] [place] 09/06[place] - 09/07/[address] [address]- Discharge Disposition: A-D/C Home Attending Physician: Charlee Abebe MD Admitting Physician: Charlee Abebe MD Referring Physician: Not on Staff, Referring [...] opioid drug. Start Date: 03/14/21 Status: Ordered gabapentin 300 mg oral capsule 300 mg, Capsule, By Mouth, 09/07/22 15:00:00 EDT Start Date: 09/07/22 Stop Date: 09/07/22 Status: Completed ibuprofen 600 mg oral tablet 600 mg, [...] 0 Refills, Maintenance, 03/14/21 20:03:00 EDT, Film, [facility]/pharmacy #[id number], Partial fill upon patient request if the prescription is for a schedule II opioid drug., 1 patch Top... Start Date: 03/14/21 Status: Ordered nirmatrelvir-ritonavir 150 mg-100 mg oral tablet See Instructions, 3 pill twice daily for 5 days, # 30 each, 0 Refills, Maintenance, 08/18/21 13:51:00 EDT, [email or web address] #[id number], Partial fill upon patient request if the prescription is for a schedule II opioid drug., 3 pill twice daily for 5 d... Start Date: 08/18/21 Status: Ordered nirmatrelvir-ritonavir 150 mg-100 mg oral tablet See Instructions, 1 pill twice daily for 5 days, # 10 each, 0 Refills, Maintenance, 08/18/21 12:52:00 EDT, [email or web address] #[id number], Partial fill upon patient request if the prescription is for a schedule II opioid drug., 1 pill twice daily for 5 d... Start Date: 08/18/21 Status: Ordered Valium 5 mg oral tablet 5 mg, 1, tablet, By Mouth, 2 times a day, PRN, # 10 tablet, Refills 0, Tot. Refills 0, Maintenance,Pain , Moderate, 02/14/21 21:09:00 EDT, Route to Pharmacy Electronically, [facility]/pharmacy #[id number], Partial fill upon patient request if the prescription is... Start Date: 02/14/21 Status: Ordered Problem List Condition Confirmation Course Effective Dates Status Health St atus Informant COVID-19 1 Confirmed 08/18/21 Active 1Problem added by Discern Expert Vital Signs Most recent to oldest [Reference Range]: 1 2 3 Weight 75 kg (09/06/22 7:46 PM) Oxygen Saturation [94-100 %] 97 % (09/07/22 5:12 PM) 96 % (09/07/22 12:41 PM) 98 % (09/07/22 8:35 AM) Pulse Rate [55-90 bpm] 60 bpm (09/07/22 5:12 PM) 64 bpm (09/07/22 12:41 PM) 56 bpm (09/07/22 8:50 AM) Blood Pressure [90-138/55-84 mm Hg] 114/65mm Hg (09/07/22 5:12 PM) 107/57mm Hg (09/07/22 12:41 PM) 108/55mm Hg (09/07/22 8:50 AM) Respiratory Rate [16-30 br/min] 17 br/min (09/07/22 5:12 PM) 17 br/min (09/07/22 5:09 PM) 17 br/min (09/07/22 12:41 PM) Temperature [96.8-100.4 DegF] 98.1 DegF (09/07/22 8:50 AM) 98.1 DegF (09/07/22 8:35 AM) 98.2 DegF (09/07/22 4:37 AM) Mode of Delivery (Oxygen) Room air (09/07/22 5:12 PM) Room air (09/07/22 12:41 PM) Room air (09/07/22 8:35 AM) Blood pressure sites Arm, left (09/07/22 5:12 PM) Arm, left (09/07/22 12:41 PM) Arm, left (09/07/22 8:35 AM) Temperature Route Oral (09/07/22 8:50 AM) Oral (09/07/22 8:35 AM) Oral (09/07/22 4:37 AM) Weight Obtained Via Patient/family state d (09/06/22 7:46 PM) Social History Social History Type Response Smoking Status Smoker, current stat us unknown entered on: 06/09/22 Sex Note * Charlee Abebe MD: PERFORM Event Display: Patient Education Leaflets Authored Date: [id number] Drug Abuse ?? [id number] Drug Abuse Use and abuse of drugs or medicines may lead to addiction or dependence. You may hear drug abuse oraddiction called substance use disorder (MARY). Examples of illegal drugs include amphetamines (alsoknown as speed or crank), methamphetamines (meth), cocaine, heroin, bath salts, and hallucinogens (such as MDMA, ecstasy, PCP, mescaline, and LSD). Xylazine is a sedative and pain reliever approved only for animals. It's not approved or safe for people. It's known by the street name tranq. Xylazine has been found in street drugs, especially heroin and fentanyl. It has been linked to overdoses and . Severe side effects from xylazine include slow heart beat and breathing, low blood pressure, skin sores, and coma. In some states, marijuana is an illegal drug. Medicines include prescription medicines, sedatives, and sleeping pills. Once addiction or dependence happens, you are at greater risk for the problems below. Social and personal problems ??? Craving for the drug and not being able to stop using even though you think you want to stop (psychological addiction) ??? Drug withdrawal symptoms if you stop takingthe drug (physical dependence) ??? Loss of friends and family ??? School or work problems ??? Arrest, conviction, and usp sentence for possession of an illegal substance or for driving under the infl uence ?? Health problems ??? Stroke, heart attack, heart failure, and kidney failure ??? Accidental injuriesto yourself or others while you are under the influence of a drug (in a car or at home) ??? HIV infection. This is a much greater risk if you use IV drugs. ??? Skin infections ??? Other sexually transmitted infections (STIs), such as herpes, chlamydia, and gonorrhea ??? Severe and fatal infection of the heart valves if you use IV drugs ??? Hepatitis B or C ??? Dementia, mood disorders, persistenthallucinations (particularly with hallucinogens) ??? Dental problems from methamphetamine abuse ??? from overdose ?? Home care The following suggestions can help you care for yourself at home: ??? Admit you have a drug problem. Ask for help from your family and close friends. ??? Seek professional help. This could be one-on-one therapy or counseling. There are also outpatient, inpatient, and residential drug treatment programs. ??? Join a self-help group for drug abuse. ??? Stay away from friends who abuse drugs or temptyou to continue abusing drugs. ??? Eat a balanced diet and start a regular exercise program. ?? Follow-up care Follow up with your healthcare provider, or as advised. Contact 1 of the resources below for help: ??? Substance Abuse and Mental Health Services Administration (SAMHSA) at www.samhsa.gov/findtreatment ??? National [place] on Alcoholism and Drug Dependence at www.ncadd.org ??? Narcotics Anonymous at www.na.org ?? Call 911 Call 911 right away if any of these occur: ??? Seizure ??? Hard time breathing or slow, irregular breathing ??? Chest pain ??? Sudden weakness on 1 side of your body or sudden trouble speaking ??? Very drowsy or trouble waking up ??? Fainting or loss of consciousness ??? Fast heart rate ??? Very slow heart rate ?? When to get medical care Call your healthcare provider if any of these occur: ??? Agitation, anxiety, or unable to sleep ???Unintended weight loss. This means more than 10 to 15 pounds over 3 months. ??? Fever of 100.4??F (38??C) or higher, or as advised by your provider ??? Shortness of breath ??? Cough with colored sputum ??? Redness, swelling, or tenderness at an injection site ??? You think counseling or drug rehabilitation services are needed to prevent additional drug use ?? Last Reviewed Date: 2022 ?? [employer]. All rights reserved. This information is not intended as a substitute for professional medical care. Always follow your healthcare professional's instructions. ?? * Charlee Abebe MD: PERFORM Event Display: Patient Education Leaflets Authored Date: [id number] Psych Substance Abuse Relapse ?? 270 Substance Abuse Relapse ?? Contact your physician, outpatient provider/s, therapist, or sponsor if you experience any of the following: ? Start misusing your medication ??? Start drinking alcohol ??? Using illicit drugs ??? Stop attending meetings ??? Begin isolating yourself from others ??? Experience any warning signals you previously have identified as your pattern leading to relapse ?? We recommend you participate in as much substance abuse treatment as you can. For additional information about substance abuse support groups and meetings in your area contact: ??? 24 hour AA ecscwhc379-568-3835 ??? 24 hour NA hotline 134-657-8605 ?? Patient Care team information Care Team Personnel Name: Not on Staff, PCP Position: [facility] Physician (General Medicine) Member Role: PCP Name: *[facility], ED Attending Position: [facility] ED Attendings Patient Name: Nahid RN, Katarzyna Position: [facility] ED RN W/OE and Tasks Member Role: Patient Care Provider Name: Brittany Newell Position: [facility] ED TA MIRA Name: Charlee Abebe MD Position: [facility] Resident Member Role: Admitting Physician Address: Address: [address] [place] [address] [place] [address]- [place] Care Team Related Persons Name: HARLEY VILLA Address: [place] [address] Name: ANA ROSA WAGNER Address: home [address] [place] [address]
--- OUTSIDE RECORDS SUMMARY | 2023-10-30 00:37 | XMS_ITS | Continuity of Care Document ---
Author Organization [facility] ter Address [address] [place] [address]- Care Team Providers Care Toll Operator Name Role Phone Sumit RICE, Stephania Primary Care Physician [id number] Date(s): 08/12/21 - 08/12/[address] [address]- Discharge Disposition: A-D/C Home Attending Physician: Yumi Solis MD Admitting Physician: Yumi Solis MD Referring Physician: Not on Staff, Referring [...] patch Top... Start Date: 03/14/21 Status: Ordered Valium 5 mg oral tablet 5 mg, 1, tablet, By Mouth, 2 times a day, PRN, # 10 tablet, Refills 0, Tot. Refills 0, Maintenance,Pain , Moderate, 02/14/21 21:09:00 EDT, Route to Pharmacy Electronically, [facility]/pharmacy #[id number], Partial fill upon patient request if the prescription is... Start Date: 02/14/21 Status: Ordered Results Radiology Reports * Exam Date Time Procedure Performing Provider Status 08/12/21 3:17 PM Chest 2 Views Frontal and Lat Graciela Mars; Auth (Verified) Notes: (Chest 2 Views Frontal and Lat) Reason For Exam: Chest Pain;Other: RESULT: Chest 2 Views Frontal and Lat Chest 2 Views Frontal and Lat History of Present Illness: Pt reports right sided shooting CP worse with movement and taking a deep breath since Wednesday. Reason: Chest Pain. COMPARISON: 03/14/2021. FINDINGS: LUNGS AND PLEURA: Clear lungs. Normal pulmonary vascularity. No pleural effusion. No pneumothorax. HEART, MEDIASTINUM AND NEVAEH: Heart is normal in size. Normal upper mediastinal and hilar contour. BONES AND SOFT TISSUES: No acute abnormality. IMPRESSION: No evidence of acute cardiopulmonary process. I have personally reviewed the images and I agree with this report. WSN: [id number] Ordering Physician: Severiano Arechiga Dictated By: Perfecto Chritsy MD Dictated Date/Time: 08/12/21 3:34 pm Reviewed By: Desirae Coronado MD Signed By: Desirae Coronado MD Signed Date/Time: 08/12/21 3:39 pm Transcribed By: SUE Transcribed Date/Time: 08/12/21 3:24 pm Vital Signs Most recent to oldest [Reference Range]: 1 2 3 Height 168 cm (08/12/21 5:45 PM) 168 cm (08/12/21 3:44 PM) 168 cm (08/12/21 1:42 PM) Weight 77.5 kg (08/12/21 5:45 PM) 77.5 kg (08/12/21 3:44 PM) 77.5 kg (08/12/21 1:42 PM) Oxygen Saturation [94-100 %] 98 % (08/12/21 5:45 PM) 100 % (08/12/21 3:44 PM) 100 % (08/12/21 1:42 PM) Pulse Rate [55-90 bpm] 63 bpm (08/12/21 5:45 PM) 57 bpm (08/12/21 3:44 PM) 64 bpm (08/12/21 1:42 PM) Body Mass Index [18.5-24.99] 27.46 *H* (08/12/21 5:45 PM) 27.46 *H* (08/12/21 3:44 PM) 27.46 *H* (08/12/21 1:42 PM) Blood Pressure [90-138/55-84 mm Hg] 120/71mm Hg (08/12/21 5:45 PM) 116/71mm Hg (08/12/21 3:44 PM) 119/43mm Hg (08/12/21 1:42 PM) Respiratory Rate [16-30 br/min] 21 br/min (08/12/21 5:45 PM) 15 br/min *L* (08/12/21 3:44 PM) 18 br/min (08/12/21 1:42 PM) Temperature [96.8-100.4 DegF] 98.3 DegF (08/12/21 5:45 PM) 98.6 DegF (08/12/21 3:44 PM) 98.6 DegF (08/12/21 1:42 PM) Liters per Minute 0 L/min (08/12/21 5:45 PM) 0 L/min (08/12/21 3:44 PM) Mode of Delivery (Oxygen) Room air (08/12/21 5:45 PM) Room air (08/12/21 3:44 PM) Room air (08/12/21 1:42 PM) Blood pressure sites Arm, left (08/12/21 5:45 PM) Arm, left (08/12/21 3:44 PM) Arm, left (08/12/21 1:42 PM) Temperature Route Oral (08/12/21 5:45 PM) Oral (08/12/21 3:44 PM) Oral (08/12/21 1:42 PM) Dry Weight 77.5 kg (08/12/21 5:45 PM) 77.5 kg (08/12/21 3:44 PM) 77.5 kg (08/12/21 1:42 PM) Weight Obtained Via Patient/family state d (08/12/21 1:42 PM) Dry Weight Obtained Via Patient/family s tated (08/12/21 1:42 PM)
--- OUTSIDE RECORDS SUMMARY | 2023-10-30 00:37 | XMS_ITS | Continuity of Care Document ---
Author Organization [facility] ter Address [address] [place] [address]- Care Team Providers Care Summer Internship Name Role Phone Sumit RICE, Stephania Primary Care Physician Encounter [facility] [place] Date(s): 10/02/22 - 10/02/[address] [address]- Encounter Diagnosis Depression(Final) - 10/02/22 Alcohol abuse(Final) - 10/02/22 Crack cocaine use(Final) - 10/02/22 Discharge Disposition: A-D/C Home Attending Physician: Sergio Duke MD Admitting Physician: Sergio Duke MD Referring Physician: Not on Staff, Referring MD Allergies, Adverse Reactions, Alerts Substance Reaction Severity Status Seafood Active Immunizations Given and Recorded Vaccine Date Status Refusal Reason SARS-CoV-2 (COVID-19) mRNA-1273 vaccine 07/26/21 R ecorded SARS-CoV-2 (COVID-19) mRNA-1273 vaccine 05/24/21 R ecorded Medications diclofenac 1% topical gel 1 application, Topically, 4 times a day, # 100 Gm, 0 Refills, Maintenance, 03/14/21 20:03:00 EDT, Gel, [facility]/pharmacy #[id number], Partial fill upon patient request if the prescription is for a schedule II opioid drug. Start Date: 03/14/21 Status: Ordered gabapentin 300 mg oral capsule 300 mg, Capsule, By Mouth, 10/02/22 9:00:00 EDT Start Date: 10/02/22 Stop Date: 10/02/22 Status: Completed ibuprofen 600 mg oral tablet 600 mg, 1, tablet, By Mouth, Every 6 hours, # 30 tablet, Refills 0, Tot. Refills 0, Maintenance, 02/14/21 21:09:00 EDT, Route to Pharmacy Electronically, [id number], Partial fill upon patientrequest if the prescription is for a schedule II op... Start Date: 02/14/21 Status: Ordered lidocaine 5% topical film 1 patch, Topically, Daily, PRN Pain , Mild, remove after 12 hours, # 13 each, 0 Refills, Maintenance, 03/14/21 20:03:00 EDT, Film, [facility]/pharmacy #[id number], Partial fill upon patient request if the prescription is for a schedule II opioid drug., 1 patch Top... Start Date: 03/14/21 Status: Ordered nirmatrelvir-ritonavir 150 mg-100 mg oral tablet See Instructions, 3 pill twice daily for 5 days, # 30 each, 0 Refills, Maintenance, 08/18/21 13:51:00 EDT, [facility] #[id number], Partial fill upon patient request if the prescription is for a schedule II opioid drug., 3 pill twice daily for 5 d... Start Date: 08/18/21 Status: Ordered nirmatrelvir-ritonavir 150 mg-100 mg oral tablet See Instructions, 1 pill twice daily for 5 days, # 10 each, 0 Refills, Maintenance, 08/18/21 12:52:00 EDT, [facility] #[id number], Partial fill upon patient request if the prescription is for a schedule II opioid drug., 1 pill twice daily for 5 d... Start Date: 08/18/21 Status: Ordered Valium 5 mg oral tablet 5 mg, 1, tablet, By Mouth, 2 times a day, PRN, # 10 tablet, Refills 0, Tot. Refills 0, Maintenance,Pain , Moderate, 02/14/21 21:09:00 EDT, Route to Pharmacy Electronically, [facility]/pharmacy #[id number], Partial fill upon patient request if the prescription is... Start Date: 02/14/21 Status: Ordered Problem List Condition Confirmation Course Effective Dates Status Health St atus Informant COVID-19 1 Confirmed 08/18/21 Active 1Problem added by Discern Expert Vital Signs Most recent to oldest [Reference Range]: 1 2 3 Height 167 cm (10/02/22 11:21 AM) 167 cm (10/02/22 6:03 AM) 167 cm (10/02/22 12:18 AM) Weight 76 kg (10/02/22 11:21 AM) 76 kg (10/02/22 6:03 AM) 76 kg (10/02/22 12:18 AM) Oxygen Saturation [94-100 %] 100 % (10/02/22 9:08 AM) 100 % (10/02/22 6:03 AM) 99 % (10/02/22 12:18 AM) Pulse Rate [55-90 bpm] 60 bpm (10/02/22 9:08 AM) 88 bpm (10/02/22 6:04 AM) 88 bpm (10/02/22 6:03 AM) Body Mass Index [18.5-24.99 kg/m2] 27.25 kg/m2 *H* (10/02/22 6:03 AM) Blood Pressure [90-138/55-84 mm Hg] 109/66mm Hg (10/02/22 9:08 AM) 121/78mm Hg (10/02/22 6:04 AM) 121/74mm Hg (10/02/22 6:03 AM) Respiratory Rate [16-30 br/min] 18 br/min (10/02/22 9:08 AM) 16 br/min (10/02/22 9:04 AM) 19 br/min (10/02/22 6:04 AM) Temperature [96.8-100.4 DegF] 97.5 DegF (10/02/22 9:08 AM) 98 DegF (10/02/22 12:18 AM) Mode of Delivery (Oxygen) Room air (10/02/22 12:18 AM) Blood pressure sites Arm, left (10/02/22 12:18 AM) Temperature Route Oral (10/02/22 9:08 AM) Oral (10/02/22 12:18 AM) Dry Weight 76 kg (10/02/22 11:21 AM) 76 kg (10/02/22 6:03 AM) 76 kg (10/02/22 12:18 AM) Social History Social History Type Response Smoking Status Smoker, current stat us unknown entered on: 06/09/22 Sex EKG study * Event Display: ECG 12-Lead Authored Date: Please click on pdf link to open report * Event Display: ECG 12-Lead Authored Date: Ventricular Rate: 56 BPM Atrial Rate: 56 BPM P-R Interval: 160 ms QRS Duration: 100 ms Q-T Interval: 456 ms QTC Calculation(Bazett): 440 ms P Fitzhugh: 55 degrees R Fitzhugh: 62 degrees T Fitzhugh: 48 degrees Sinus bradycardia Otherwise normal ECG When compared with ECG of 04-SEP-2022 09:51, No significant change was found Confirmed by LARRY WILSON ([id number]) on 10/02/2022 2:05:42 PM Hutchinson: LARRY WILSON Note * Sergio Duke MD: PERFORM Event Display: Patient Education Leaflets Authored Date: [id number] Drug Abuse ?? [id number] Drug Abuse Use and abuse of drugs [...] or work problems ??? Arrest, conviction, and shelter sentence for possession of an illegal substance [...] Services Administration (SAMHSA) at www.samhsa.gov/findtreatment ??? National [place] on Alcoholism and Drug Dependence at www.ncadd.org [...] use ?? Last Reviewed Date: 2022 ?? [employer]. All rights reserved. This information is not intended as a substitute for professional medical care. Always follow your healthcare professional's instructions. ?? * Sergio Duke MD: PERFORM Event Display: Patient Education Leaflets Authored Date: [id number] Alcohol Abuse ?? [id number] Alcohol Abuse Alcoholic drinks harm you when you have too many of them. No set number of drinks means too much. Drinking that affects your life or your health is called alcohol abuse. Alcohol abuse can hurt your relationships with others. You may lose friends, a spouse, or even your job. You may be abusing alcohol if any of the following are true for you: ??? Duties at home or with child support case officer suffer because of drinking. ??? Duties at work or in school suffer because of drinking. ??? You have missed work or school because of drinking. ??? You use alcohol while driving or using machinery. ??? You have legal problems such as arrests because of drinking. ??? You keep drinking even though it causes serious problems in your life. Health problems Alcohol abuse causes many health problems.??Sometimes this can happen after only drinking a ???little. ??The effects depend on how much you drink at one time and how often you drink. The effects also depend on how long you drink. For example, months, years, or decades.??Alcohol affects all parts of your body Brain Alcohol affects the central nervous system. It can damage parts of the brain that control your balance and gait, memory, thinking, and emotions. It can cause: ??? Memory loss ??? Blackouts ??? Depression ??? Agitation ??? Sleep problems ??? Seizures These changes may be intermediate (permanent). Heart and blood vessels Alcohol can damage heart muscle (cardiomyopathy). This can lead to: ??? Trouble breathing ??? Irregular heartbeat ??? Atrial fibrillation ??? Leg swelling ??? Heart failure Alcohol also makes the blood vessels stiff. This causes high blood pressure. All of these problems raise your risk of having a heart attack or stroke. Liver Alcohol causes fat to build up in the liver. This affects how the liver works. Alcohol also raises the risk for hepatitis. It can cause: ??? Belly (abdominal) pain ??? Belly swelling ??? Loss of appetite ??? Yellowed eyes or skin (jaundice) ??? Bleeding problems ??? Cirrhosis This can make it harder for you to fight off infections. The liver changes keep it from removing toxins in your blood that can cause brain disease (encephalopathy). This condition cause: ??? Confusion ??? Changed level of consciousness ??? Personality changes ??? Memory loss ??? Seizures, coma, and The liver changes can also cause the veins in your esophagus and stomach to become thin and swollenwith blood (varices). This can cause bleeding and vomiting of blood. Pancreas Alcohol can cause swelling (inflammation) of the pancreas (pancreatitis). This can cause belly pain, fever, and diabetes. Immune system Alcohol weakens your immune system. This makes it harder for you to fight infections and colds. It also makes it more likely for you to get pneumonia and tuberculosis. Cancer Alcohol raises the risk for several types of cancer. These include cancer of the mouth, esophagus, pharynx, larynx, liver, and breast. Sexual function Alcohol can lead to sexual problems. ?? Home care These guidelines will help you deal with alcohol abuse: ??? Admit you have a problem with alcohol. ??? Ask for help from your healthcare provider. Also ask for help from trusted family members or close friends. ??? Get help from people trained in dealing with alcohol abuse. This may be one-on-one counseling or group therapy. Or it may be an alcohol treatment program. ??? Join a self-help group for alcohol abuse such as Alcoholics Anonymous. ??? Stay away from people who abuse alcohol or tempt you to drink. ?? Follow-up care Follow up with your healthcare provider, or as advised. Contact these groups to get help: ??? Alcoholics Anonymous (AA) at www.aa.org. Or check the phone book for meetings near you. ??? National Alcohol and Substance Abuse Information Center (NASAIC) at www.addictioncareOligomerix.[employer] or 479-683-5679 ??? National [place] on Alcoholism and Drug Dependence (NCADD) at www.ncadd.org or 643-CMJ-QFZC (337-604-8808) ?? Call 911 Call 911 if any of these occur: ??? Trouble breathing or slow, irregular breathing ??? Chest pain ??? Sudden weakness on one side of your body or sudden trouble speaking ??? Heavy bleeding or vomiting blood ??? Very drowsy or trouble awakening ??? Fainting or loss of consciousness ??? Rapid heart rate ??? Seizure ?? When to seek medical care Call your healthcare provider right away if any of these occur:? Confusion ??? Seeing, hearing, or feeling things that aren???t there (hallucinations) ??? Pain in your upper belly that gets worse ??? Vomiting that continues, vomiting with blood, or black or tarry stools ??? Severe shakiness ?? Last Reviewed Date: 2021 ?? 7238-8533 [employer]. All rights reserved. This information is not intended as a substitute for professional medical care. Always follow your healthcare professional's instructions. ?? Patient Care team information Care Team Personnel Name: Sumit RICE, Stephania Position: Reference Physician Member Role: PCP Address: Address: [address] [place], [place] [address] [address]- Name: *[facility], ED Attending Position: [facility] ED Attendings Patient Name: Lo De La Cruz Position: [facility] ED RN W/OE and Tasks Member Role: Patient Care Provider Name: Sergio Duke MD Position: [facility] ED Medicine MD Member Role: Admitting Physician Address: Address: [address] [place] [address]- Name: Laure Olivo Position: [facility] ED TA [facility] Care Team Related Persons Name: HARLEY VILLA Address: [place] [address] Name: ANA ROSA WAGNER Address: home [address] [place] [address]
--- OUTSIDE RECORDS SUMMARY | 2023-10-30 00:37 | XMS_ITS | Continuity of Care Document ---
Author Organization [facility] ter Address [address] [place] [address]- Care Team Providers Care Contract Runner Name Role Phone Sumit RICE, Stephania Primary Care Physician Encounter [facility] [place] Date(s): 09/25/20 - 09/25/[address] [address]- Discharge Disposition: A-D/C Walkout Attending Physician: Not on Staff, Attending MD Admitting Physician: Not on Staff, Admitting MD Referring Physician: Not on Staff, Referring MD Allergies, Adverse Reactions, Alerts Substance Reaction Severity Status NKA Active Vital Signs Most recent to oldest [Reference Range]: 1 2 Oxygen Saturation [94-100 %] 99 % (09/25/20 5:37 PM) 100 % (09/25/20 5:18 PM) Pulse Rate [55-90 bpm] 73 bpm (09/25/20 5:37 PM) 82 bpm (09/25/20 5:18 PM) Blood Pressure [90-138/55-84 mm Hg] 119/ 70mm Hg (09/25/20 5:37 PM) Respiratory Rate [16-30 br/min] 19 br/mi n (09/25/20 5:37 PM) Temperature [96.8-100.4 DegF] 98.5 DegF (09/25/20 5:37 PM) Mode of Delivery (Oxygen) Room air (09/25/20 5:37 PM) Room air (09/25/20 5:18 PM) Blood pressure sites Arm, right (09/25/20 5:37 PM) Temperature Route Oral (09/25/20 5:37 PM)
--- OUTSIDE RECORDS SUMMARY | 2023-10-30 00:37 | XMS_ITS | Continuity of Care Document ---
Author Organization [facility] ter Address [address] [place] [address]- Care Team Providers Care Teradata Developer Name Role Phone Not on Staff, PCP Primary Care Physician Unavail able [place] [facility] [place]/29/[place] - 08/29/[address] [address]- Discharge Disposition: A-D/C Home Attending Physician: Katarzyna Causey MD Admitting Physician: Katarzyna Causey MD Referring Physician: Not on Staff, Referring MD Allergies, Adverse Reactions, Alerts Substance Reaction Severity Status Seafood Active Immunizations Given and Recorded Vaccine Date Status Refusal Reason SARS-CoV-2 (COVID-19) mRNA-1273 vaccine 07/26/21 R ecorded SARS-CoV-2 (COVID-19) mRNA-1273 vaccine 05/24/21 R ecorded Medications Acetaminophen Tablet 975 mg, Tablet, By Mouth, Once, STAT, 08/29/22 12:56:00 EDT, Stop date 08/29/22 12:56:00 EDT Start Date: 08/29/22 Stop Date: 08/29/22 Status: Completed diclofenac 1% topical gel 1 application, Topically, 4 times a day, # 100 Gm, 0 Refills, Maintenance, 03/14/21 20:03:00 EDT, Gel, [id number], Partial fill upon patient request if the prescription is for a schedule II opioid drug. Start Date: 03/14/21 Status: Ordered gabapentin 300 mg oral capsule 300 mg, Capsule, By Mouth, 08/29/22 15:00:00 EDT Start Date: 08/29/22 Stop Date: 08/29/22 Status: Completed ibuprofen 600 mg oral tablet 600 mg, 1, tablet, By Mouth, Every 6 hours, # 30 tablet, Refills 0, Tot. Refills 0, Maintenance, 02/14/21 21:09:00 EDT, Route to Pharmacy Electronically, [facility]/pharmacy #[id number], Partial fill upon patientrequest if the prescription is for a schedule II op... Start Date: 02/14/21 Status: Ordered lidocaine 5% topical film 1 patch, Topically, Daily, PRN Pain , Mild, remove after 12 hours, # 13 each, 0 Refills, Maintenance, 03/14/21 20:03:00 EDT, Film, [facility]/pharmacy #[id number], Partial fill upon patient request if the prescription is for a schedule II opioid drug., 1 patch Top... Start Date: 03/14/21 Status: Ordered nirmatrelvir-ritonavir 150 mg-100 mg oral tablet See Instructions, 3 pill twice daily for 5 days, # 30 each, 0 Refills, Maintenance, 08/18/21 13:51:00 EDT, [facility] #[id number], Partial fill upon patient request if the prescription is for a schedule II opioid drug., 3 pill twice daily for 5 d... Start Date: 08/18/21 Status: Ordered nirmatrelvir-ritonavir 150 mg-100 mg oral tablet See Instructions, 1 pill twice daily for 5 days, # 10 each, 0 Refills, Maintenance, 08/18/21 12:52:00 EDT, [facility] #[id number], Partial fill upon patient request if the prescription is for a schedule II opioid drug., 1 pill twice daily for 5 d... Start Date: 08/18/21 Status: Ordered Valium 5 mg oral tablet 5 mg, 1, tablet, By Mouth, 2 times a day, PRN, # 10 tablet, Refills 0, Tot. Refills 0, Maintenance,Pain , Moderate, 02/14/21 21:09:00 EDT, Route to Pharmacy Electronically, [facility]/pharmacy #[id number], Partial fill upon patient request if the prescription is... Start Date: 02/14/21 Status: Ordered Problem List Condition Confirmation Course Effective Dates Status Health St atus Informant COVID-19 1 Confirmed 08/18/21 Active 1Problem added by Discern Expert Vital Signs Most recent to oldest [Reference Range]: 1 2 3 Height 168 cm (08/29/22 5:37 PM) 168 cm (08/29/22 9:28 AM) Weight 77.7 kg (08/29/22 5:37 PM) 77.7 kg (08/29/22 9:28 AM) Oxygen Saturation [94-100 %] 94 % (08/29/22 5:37 PM) 98 % (08/29/22 1:22 PM) 99 % (08/29/22 9:28 AM) Pulse Rate [55-90 bpm] 55 bpm (08/29/22 5:37 PM) 70 bpm (08/29/22 1:22 PM) 70 bpm (08/29/22 9:28 AM) Body Mass Index [18.5-24.99 kg/m2] 27.53 kg/m2 *H* (08/29/22 5:37 PM) 27.53 kg/m2 *H* (08/29/22 9:28 AM) Blood Pressure [90-138/55-84 mm Hg] 109/63mm Hg (08/29/22 5:37 PM) 122/60mm Hg (08/29/22 1:22 PM) 118/68mm Hg (08/29/22 9:28 AM) Respiratory Rate [16-30 br/min] 20 br/min (08/29/22 5:37 PM) 18 br/min (08/29/22 2:22 PM) 18 br/min (08/29/22 2:22 PM) Temperature [96.8-100.4 DegF] 98.2 DegF (08/29/22 5:37 PM) 97.7 DegF (08/29/22 9:28 AM) Mode of Delivery (Oxygen) Room air (08/29/22 5:37 PM) Room air (08/29/22 1:22 PM) Room air (08/29/22 9:28 AM) Blood pressure sites Arm, right (08/29/22 5:37 PM) Arm, right (08/29/22 9:28 AM) Temperature Route Oral (08/29/22 5:37 PM) Oral (08/29/22 9:28 AM) Dry Weight 77.7 kg (08/29/22 5:37 PM) 77.7 kg (08/29/22 9:28 AM) Weight Obtained Via Standing scale (08/29/22 9:28 AM) Dry Weight Obtained Via Standing scale (08/29/22 9:28 AM) Social History Social History Type Response Smoking Status Smoker, current stat us unknown entered on: 06/09/22 Sex Note * Padilla GARCIA, Katarzyna Chowdhury: PERFORM Event Display: Patient Education Leaflets Authored Date: [id number] Drug Abuse ?? [id number] Drug Abuse Use and abuse of drugs [...] or work problems ??? Arrest, conviction, and senior care sentence for possession of an illegal substance [...] Services Administration (SAMHSA) at www.samhsa.gov/findtreatment ??? National [place] on Alcoholism and Drug Dependence at www.ncadd.org [...] use ?? Last Reviewed Date: 2022 ?? 5187-0766 [employer]. All rights reserved. This information is not intended as a substitute for professional medical care. Always follow your healthcare professional's instructions. ?? * Padilla GARCIA, Katarzyna Chowdhury: PERFORM Event Display: Patient Education Leaflets Authored Date: [id number] [facility] [place] If you need a Doctor or Clinic ?? 34 If You Need a Doctor or Clinic ?? Call [facility] PCP Assignment Line to help you find a doctor:?? [phone] ?? Clinics in [place], [place] For a full list of clinics:? www.[employer] ?? [facility]? [address] [phone] [facility] Internal medicine Clinic?[address]?[phone] [facility]?[address][phone] [facility]?[address][phone] [facility]?[address] [phone] [facility]?[address][phone] [facility]?[address][phone] [facility]?[address] [phone] [facility]? [address][phone] 4 [facility] social media director?[address][phone] [facility]?[address][phone] [facility]?[address][phone] [facility]?[address][phone] [facility]? [address][phone] [facility]?[address][phone] ? * Padilla GARCIA, Katarzyna Chowdhury: PERFORM Event Display: Patient Education Leaflets Authored Date: [id number] Acute Pain, Uncertain Cause ?? [id number] Acute Pain, Uncertain Cause Pain can be caused by many conditions that range from very minor to very serious. In some cases, though, pain comes and goes with no apparent cause. We were not able to find the exact cause for your pain. At this time there is no sign of any serious illness causing your pain. More tests may be needed to determine the cause. In many cases, pain like this goes away by itself. Home care Take any medicines as prescribed. If another medicine was not prescribed for pain, you can take an enze-egt-swfinyv pain medicine such as ibuprofen or acetaminophen. Use these as directed on the label. Talk with your healthcare provider before taking eroz-dgn-qhsfthi pain medicine if you have a history of kidney or liver problems or bleeding in the stomach, or have heart disease. ?? Follow-up care Follow up with your??healthcare provider??or our staff as directed. ?? When to seek medical advice Call your healthcare provider for any of the following: ??? Pain changes in pattern ??? Pain doesn't lessen or gets worse ??? New symptoms appear ??? Fever??of 100.4??F (38??C) or higher,??or as directed by your healthcare provider ?? Last Reviewed Date: 2021 ?? [id number] [employer]. All rights reserved. This information is not intended as a substitute for professional medical care. Always follow your healthcare professional's instructions. ?? Patient Care team information Care Team Personnel Name: Not on Staff, PCP Position: [facility] Physician (General Medicine) Member Role: PCP Name: *[facility], ED Attending Position: [facility] ED Attendings Patient Name: Padilla GARCIA, Katarzyna Chowdhury Position: [facility] ED Medicine MD Member Role: Admitting Physician Address: Address: [address] [place] [address]- Name: Sultana Sidhu Position: [facility] ED TA [facility] Care Team Related Persons Name: HARLEY VILLA Address: [place] [address] Name: ANA ROSA WAGNER Address: home [address] [place] [address]
--- OUTSIDE RECORDS SUMMARY | 2023-10-30 00:37 | XMS_ITS | Continuity of Care Document ---
Author Organization [facility] ter Address [address] [place] [address]- Care Team Providers Care Harbor Department Manager Name Role Phone Not on Staff, PCP Primary Care Physician Unavail able Encounter [facility] Date(s): 09/04/22 - 09/05/[address] [address]- Discharge Disposition: A-D/C Home Attending Physician: Jerry Dunham MD Admitting Physician: Jerry Dunham MD Referring Physician: Not on Staff, Referring [...] oral capsule 300 mg, Capsule, By Mouth, 09/05/22 9:00:00 EDT Start Date: 09/05/22 Stop Date: 09/05/22 Status: Completed ibuprofen 600 mg oral tablet [...] 0 Refills, Maintenance, 03/14/21 20:03:00 EDT, Film, [facility]/pharmacy #[id number], Partial fill upon patient request if the prescription is for a schedule II opioid drug., 1 patch Top... Start Date: 03/14/21 Status: Ordered nirmatrelvir-ritonavir 150 mg-100 mg oral tablet See Instructions, 3 pill twice daily for 5 days, # 30 each, 0 Refills, Maintenance, 08/18/21 13:51:00 EDT, [facility] #[id number], Partial fill upon patient request if the prescription is for a schedule II opioid drug., 3 pill twice daily for 5 d... Start Date: 08/18/21 Status: Ordered nirmatrelvir-ritonavir 150 mg-100 mg oral tablet See Instructions, 1 pill twice daily for 5 days, # 10 each, 0 Refills, Maintenance, 08/18/21 12:52:00 EDT, [facility] #[id number], Partial fill upon patient request if the prescription is for a schedule II opioid drug., 1 pill twice daily for 5 d... Start Date: 08/18/21 Status: Ordered Valium 5 mg oral tablet 5 mg, 1, tablet, By Mouth, 2 times a day, PRN, # 10 tablet, Refills 0, Tot. Refills 0, Maintenance,Pain , Moderate, 02/14/21 21:09:00 EDT, Route to Pharmacy Electronically, [facility]/pharmacy #[id number], Partial fill upon patient request if the prescription is... Start Date: 02/14/21 Status: Ordered Problem List Condition Confirmation Course Effective Dates Status [facility] Informant COVID-19 1 Confirmed 08/18/21 Active 1Problem added by Discern Expert Vital Signs Most recent to oldest [Reference Range]: 1 2 3 Weight 73.93 kg (09/05/22 11:46 AM) 73.93 kg (09/04/22 4:15 AM) 73.93 kg (09/04/22 4:12 AM) Oxygen Saturation [94-100 %] 97 % (09/05/22 11:46 AM) 96 % (09/05/22 5:52 AM) 96 % (09/04/22 10:24 PM) Pulse Rate [55-90 bpm] 65 bpm (09/05/22 11:46 AM) 50 bpm *L* (09/05/22 5:52 AM) 52 bpm *L* (09/04/22 10:24 PM) Blood Pressure [90-138/55-84 mm Hg] 122/62mm Hg (09/05/22 11:46 AM) 117/73mm Hg (09/05/22 5:52 AM) 105/59mm Hg (09/04/22 10:24 PM) Respiratory Rate [16-30 br/min] 20 br/min (09/05/22 11:46 AM) 18 br/min (09/05/22 8:14 AM) 16 br/min (09/05/22 5:52 AM) Temperature [96.8-100.4 DegF] 98.0 DegF (09/05/22 11:46 AM) 98.6 DegF (09/05/22 5:52 AM) 98.5 DegF (09/04/22 10:24 PM) Mode of Delivery (Oxygen) Room air (09/05/22 11:46 AM) Room air (09/05/22 5:52 AM) Room air (09/04/22 10:24 PM) Blood pressure sites Arm, left (09/05/22 11:46 AM) Arm, right (09/05/22 5:52 AM) Arm, right (09/04/22 10:24 PM) Temperature Route Oral (09/05/22 11:46 AM) Oral (09/05/22 5:52 AM) Oral (09/04/22 10:24 PM) Social History Social History Type Response Smoking Status Smoker, current stat us unknown entered on: 06/09/22 Sex Patient Care team information Care Team Personnel Name: Not on Staff, PCP Position: [facility] Physician (General Medicine) Member Role: PCP Name: *[facility], ED Attending Position: [facility] ED Attendings Patient Name: Jose Eugenie Position: [facility] ED [facility] Member Role: Dietitian Assistant Name: Beba Wen Position: [facility] ED RN W/OE and Tasks Member Role: Patient Care Provider Name: Jerry Dunham MD Position: [facility] ED Medicine MD Member Role: Admitting Physician Address: Address: [address] [facility] [place] [address]- Care Team Related Persons Name: HARLEY VILLA Address: [place] [address] Name: ANA ROSA WAGNER Address: home [address] [place] [id number]
--- OUTSIDE RECORDS SUMMARY | 2023-10-30 00:37 | XMS_ITS | Continuity of Care Document ---
Author Organization [facility] ter Address [address] [place] [address]- Care Team Providers Care Medical Staff Specialist Name Role Phone Not on Staff, PCP Primary Care Physician Unavail able Encounter [facility] [place] Date(s): 06/24/22 - 06/24/[address] [address]- Encounter Diagnosis Syncope and collapse(Final) - 06/24/22 Discharge Disposition: A-D/C Home Attending Physician: Christos GARCIA, Sergio Vázquez Admitting Physician: Sergio Sher MD Referring Physician: Not on Staff, Referring MD Allergies, Adverse Reactions, Alerts Substance Reaction Severity Status Seafood Active Immunizations Given and Recorded Vaccine Date Status Refusal Reason SARS-CoV-2 (COVID-19) mRNA-1273 vaccine 07/26/21 R ecorded SARS-CoV-2 (COVID-19) mRNA-1273 vaccine 05/24/21 R ecorded Medications diclofenac 1% topical gel 1 application, Topically, 4 times a day, # 100 Gm, 0 Refills, Maintenance, 03/14/21 20:03:00 EDT, Gel, [facility]/pharmacy #[id number], Partial fill upon patient request if the prescription is for a schedule II opioid drug. Start Date: 03/14/21 Status: Ordered ibuprofen 600 mg oral tablet 600 mg, 1, tablet, By Mouth, Every 6 hours, # 30 tablet, Refills 0, Tot. Refills 0, Maintenance, 02/14/21 21:09:00 EDT, Route to Pharmacy Electronically, [facility]/pharmacy #[id number], Partial fill upon patientrequest if the prescription is for a schedule II op... Start Date: 02/14/21 Status: Ordered lidocaine 5% topical film 1 patch, Topically, Daily, PRN Pain , Mild, remove after 12 hours, # 13 each, 0 Refills, Maintenance, 03/14/21 20:03:00 EDT, Film, [facility]/pharmacy #[id number], Partial fill upon patient request if the prescription is for a schedule II opioid drug., 1 patch Top... Start Date: 03/14/21 Status: Ordered nirmatrelvir-ritonavir 150 mg-100 mg oral tablet See Instructions, 3 pill twice daily for 5 days, # 30 each, 0 Refills, Maintenance, 08/18/21 13:51:00 EDT, [facility] #[id number], Partial fill upon patient request if the prescription is for a schedule II opioid drug., 3 pill twice daily for 5 d... Start Date: 08/18/21 Status: Ordered nirmatrelvir-ritonavir 150 mg-100 mg oral tablet See Instructions, 1 pill twice daily for 5 days, # 10 each, 0 Refills, Maintenance, 08/18/21 12:52:00 EDT, [facility] #[id number], Partial fill upon patient request if the prescription is for a schedule II opioid drug., 1 pill twice daily for 5 d... Start Date: 08/18/21 Status: Ordered Valium 5 mg oral tablet 5 mg, 1, tablet, By Mouth, 2 times a day, PRN, # 10 tablet, Refills 0, Tot. Refills 0, Maintenance,Pain , Moderate, 02/14/21 21:09:00 EDT, Route to Pharmacy Electronically, [facility]/pharmacy #[id number], Partial fill upon patient request if the prescription is... Start Date: 02/14/21 Status: Ordered Problem List Condition Confirmation Course Effective Dates Status [facility] Informant COVID-19 1 Confirmed 08/18/21 Active 1Problem added by Discern Expert Results Radiology Reports * Exam Date Time Procedure Performing Provider Status 06/24/22 10:42 AM Chest 2 Views Frontal and Lat Graciela Mars; Auth (Verified) Notes: (Chest 2 Views Frontal and Lat) Reason For Exam: Shortness of Breath RESULT: Chest 2 Views Frontal and Lat Chest 2 Views Frontal and Lat HX OF PRESENT ILLNESS: I felt like I was going to pass out and feeling dizzy; Reason: Shortness of Breath; Clinical Question(s): Pneumonia COMPARISON: Multiple priors, most recent 08/18/2021. FINDINGS: LINES AND TUBES: None. LUNGS AND PLEURA: Clear lungs. No focal consolidation. Normal pulmonary vascularity. No pleural effusion. No pneumothorax. HEART, MEDIASTINUM AND NEVAEH: Heart is normal in size. Normal mediastinal and hilar contour. BONES AND SOFT TISSUES: No acute abnormality. IMPRESSION: No radiographic evidence of an acute cardiopulmonary process. I have personally reviewed the images and I agree with this report. WSN: [id number] Ordering Physician: Sergio Sher Dictated By: Cristina Rodriguez DO Dictated Date/Time: 06/24/22 10:55 a Reviewed By: Mele Khan MD Signed By: Mele Khan MD Signed Date/Time: 06/24/22 11:00 am Transcribed By: SUE Transcribed Date/Time: 06/24/22 10:48 am Vital Signs Most recent to oldest [Reference Range]: 1 2 3 Oxygen Saturation [94-100 %] 97 % (06/24/22 2:08 PM) 95 % (06/24/22 8:39 AM) 95 % (06/24/22 7:48 AM) Pulse Rate [55-90 bpm] 66 bpm (06/24/22 2:08 PM) 79 bpm (06/24/22 8:39 AM) 90 bpm (06/24/22 7:48 AM) Blood Pressure [90-138/55-84 mm Hg] 115/67mm Hg (06/24/22 2:08 PM) 113/61mm Hg (06/24/22 8:39 AM) 131/76mm Hg (06/24/22 7:48 AM) Respiratory Rate [16-30 br/min] 12 br/min *L* (06/24/22 2:08 PM) 18 br/min (06/24/22 8:39 AM) 16 br/min (06/24/22 7:48 AM) Temperature [96.8-100.4 DegF] 98.6 DegF (06/24/22 2:08 PM) 98.4 DegF (06/24/22 8:39 AM) 98.3 DegF (06/24/22 7:48 AM) Mode of Delivery (Oxygen) Room air (06/24/22 2:08 PM) Room air (06/24/22 8:39 AM) Room air (06/24/22 7:48 AM) Blood pressure sites Arm, right (06/24/22 2:08 PM) Arm, right (06/24/22 8:39 AM) Arm, left (06/24/22 7:48 AM) Temperature Route Oral (06/24/22 2:08 PM) Oral (06/24/22 8:39 AM) Oral (06/24/22 7:48 AM) Social History Social History Type Response Smoking Status Smoker, current stat us unknown entered on: 06/09/22 Sex Note * Sergio Sher MD: PERFORM Event Display: Patient Education Leaflets Authored Date: [id number] Fainting: Uncertain Cause ?? [id number] Fainting: Uncertain Cause Fainting (syncope) is a temporary loss of consciousness. It's often associated with a loss of postural tone. It???s also called passing out. It occurs when blood flow to the brain is less than normal. There are other causes of fainting, too. Near-fainting (near-syncope) is very similar to fainting,but you don???t fully pass out. In most cases, fainting occurs for reasons that aren't necessarily serious or life-threatening. Butit may still be dangerous if you fall or if it occurs while driving. Common triggers of less serious types of fainting include: ??? Sudden fear ??? Pain ??? Nausea ??? Emotional stress ??? Overexertion Suddenly standing up after sitting or lying for a long time can also cause fainting. More serious causes of fainting include: ??? Very slow or very fast heartbeat (arrhythmia) ??? Other types of heart disease, such as heart valve disease or coronary artery disease ??? Dehydration ??? Loss of blood ??? Stroke ??? Ruptured blood vessel in the brain Taking too much high blood pressure medicine can also cause low blood pressure and fainting. Your healthcare provider may be able to tell why you are fainting by reviewing your health history and hearing about your fainting episodes. If the cause of your fainting remains unknown or if your healthcare provider is concerned about a more serious cause he or she may determine that you need further testing. Testing may include: ??? Echocardiogram. This will take ultrasound pictures of your heart to evaluate the heart's structure and function ??? Stress test. This will check for abnormalities with you heart function or heartrhythm with exercise ??? Tilt table test. This evaluates for changes in blood pressure or heart rate when going from a laying position to standing ??? Heart monitoring. This will evaluate for heart rhythms that are too slow or too fast that may be the cause of your fainting ??? Lab tests. This can check for abnormalities in electrolytes, blood counts and other things Home care Follow these guidelines when caring for yourself at home: ??? Rest today. You may go back to your normal activities when you are feeling back to normal. It's best to stay with someone who can check on you for the next 24 hours to watch for another episode of fainting. ??? If you become lightheaded or dizzy, lie down right away and try to prop your feet above the level of your head. Or sit with your head between your knees. ??? Because the provider doesn???t know the exact cause of your faintingor near-fainting spell, it???s possible for you to have another spell without warning. Because of this, don???t drive a car or operate dangerous equipment until your healthcare provider says it's OK to do so. Don???t take a bath alone. Use a shower instead. Don???t swim alone??until your healthcareprovider says that you are no longer in danger of having another fainting spell. ?? Follow-up care Follow up with your healthcare provider, or as advised. Call 911 Call 911 if any of the following occur: ??? Another fainting spell that???s not explained by the common causes listed above ??? Pain in your chest, arm, neck, jaw, back, or belly (abdomen) ??? Shortness of breath ??? Severe headache or seizure ??? Blood in vomit or stools (black or red color) ??? Your heart beats very rapidly, very slowly, or irregularly (palpitations) ??? Weakness in an arm or leg or on 1 side of the face ??? Trouble speaking or seeing ??? Extreme drowsiness, confusion, or dizziness ?? Last Reviewed Date: 2021 ?? 2906-3576 [employer]. All rights reserved. This information is not intended as a substitute for professional medical care. Always follow your healthcare professional's instructions. ?? * BHSPowerscribe , CIS S: TRANSCRIBE Mele Khan MD: VERIFY Cristina Rodriguez DO: SIGN Event Display: Result: Authored Date: [id number] Chest 2 Views Frontal and Lat HX OF PRESENT ILLNESS: I felt like I was going to pass out and feeling dizzy; Reason: Shortness of Breath; Clinical Question(s): Pneumonia COMPARISON: Multiple priors, most recent 08/18/2021. FINDINGS: LINES AND TUBES: None. LUNGS AND PLEURA: Clear lungs. No focal consolidation. Normal pulmonary vascularity. No pleural effusion. No pneumothorax. HEART, MEDIASTINUM AND NEVAEH: Heart is normal in size. Normal mediastinal and hilar contour. BONES AND SOFT TISSUES: No acute abnormality. IMPRESSION: No radiographic evidence of an acute cardiopulmonary process. I have personally reviewed the images and I agree with this report. WSN: [id number] Ordering Physician: Sergio Sher Dictated By: Cristina Rodriguez DO Dictated Date/Time: 06/24/22 10:55 a Reviewed By: Mele hKan MD Signed By: Mele Khan MD Signed Date/Time: 06/24/22 11:00 am Transcribed By: SUE Transcribed Date/Time: 06/24/22 10:48 am Patient Care team information Care Team Personnel Name: Not on Staff, PCP Position: [facility] Physician (General Medicine) Member Role: PCP Name: Jean Hayden Position: [facility] ED [facility] Member Role: Patient Care Provider Name: Sergio Sher MD Position: [facility] ED Medicine MD Member Role: Admitting Physician Address: Address: [address] [place] [id number] Name: Josie Olivo Position: [facility] ED RN W/OE and Tasks Member Role: Patient Care Provider Name: Dasia Gonzalez Position: [facility] ED TA [facility] Member Role: Accounting Machine Operator Care Team Related Persons Name: HARLEY VILLA Address: [place] [address] Name: ANA ROSA WAGNER Address: home [address] [place] [address]
--- OUTSIDE RECORDS SUMMARY | 2023-10-30 00:37 | XMS_ITS | Continuity of Care Document ---
Author Organization [facility] ter Address [address] [place] [address]- Care Team Providers Care Electrolytic Etcher Name Role Phone Sumit RICE, Stephania Primary Care Physician Encounter [facility] Date(s): 06/05/22 - 06/05/[address] [address]- Encounter Diagnosis Headache(Final) - 06/05/22 Depressive state(Final) - 06/05/22 Discharge Disposition: A-D/C Home Attending Physician: Daisy Grady MD Admitting Physician: Daisy Grady MD Referring Physician: Not on Staff, Referring MD Allergies, Adverse Reactions, Alerts Substance Reaction Severity Status Seafood Active Immunizations Given and Recorded Vaccine Date Status Refusal Reason SARS-CoV-2 (COVID-19) mRNA-1273 vaccine 07/26/21 R ecorded SARS-CoV-2 (COVID-19) mRNA-1273 vaccine 05/24/21 R ecorded Medications diclofenac 1% topical gel 1 application, Topically, 4 times a day, # 100 Gm, 0 Refills, Maintenance, 03/14/21 20:03:00 EDT, Gel, [facility]/pharmacy #[id number], Partial fill upon patient request [...] 0 Refills, Maintenance, 03/14/21 20:03:00 EDT, Film, [facility]/pharmacy #[id number], Partial fill upon patient request if the prescription is for a schedule II opioid drug., 1 patch Top... Start Date: 03/14/21 Status: Ordered nirmatrelvir-ritonavir 150 mg-100 mg oral tablet See Instructions, 3 pill twice daily for 5 days, # 30 each, 0 Refills, Maintenance, 08/18/21 13:51:00 EDT, [facility] #[id number], Partial fill upon patient request if the prescription is for a schedule II opioid drug., 3 pill twice daily for 5 d... Start Date: 08/18/21 Status: Ordered nirmatrelvir-ritonavir 150 mg-100 mg oral tablet See Instructions, 1 pill twice daily for 5 days, # 10 each, 0 Refills, Maintenance, 08/18/21 12:52:00 EDT, [facility] #[id number], Partial fill upon patient request if the prescription is for a schedule II opioid drug., 1 pill twice daily for 5 d... Start Date: 08/18/21 Status: Ordered Valium 5 mg oral tablet 5 mg, 1, tablet, By Mouth, 2 times a day, PRN, # 10 tablet, Refills 0, Tot. Refills 0, Maintenance,Pain , Moderate, 02/14/21 21:09:00 EDT, Route to Pharmacy Electronically, [facility]/pharmacy #[id number], Partial fill upon patient request if the prescription is... Start Date: 02/14/21 Status: Ordered Problem List Condition Confirmation Course Effective Dates Status Health [facility] Informant COVID-19 1 Confirmed 08/18/21 Active 1Problem added by Discern Expert Vital Signs Most recent to oldest [Reference Range]: 1 2 3 Oxygen Saturation [94-100 %] 98 % (06/05/22 10:06 PM) 99 % (06/05/22 4:57 PM) 97 % (06/05/22 3:32 PM) Pulse Rate [55-90 bpm] 89 bpm (06/05/22 10:06 PM) 62 bpm (06/05/22 4:57 PM) 53 bpm *L* (06/05/22 3:32 PM) Blood Pressure [90-138/55-84 mm Hg] 133/74mm Hg (06/05/22 10:06 PM) 125/75mm Hg (06/05/22 4:57 PM) 120/78mm Hg (06/05/22 3:32 PM) Respiratory Rate [16-30 br/min] 15 br/min *L* (06/05/22 10:06 PM) 21 br/min (06/05/22 4:57 PM) 19 br/min (06/05/22 3:32 PM) Temperature [96.8-100.4 DegF] 97.4 DegF (06/05/22 10:06 PM) 97.9 DegF (06/05/22 9:05 AM) Mode of Delivery (Oxygen) Room air (06/05/22 10:06 PM) Room air (06/05/22 4:57 PM) Room air (06/05/22 3:32 PM) Blood pressure sites Arm, left (06/05/22 10:06 PM) Arm, left (06/05/22 4:57 PM) Arm, left (06/05/22 3:32 PM) Temperature Route Oral (06/05/22 10:06 PM) Oral (06/05/22 9:05 AM) EKG study * Event Display: ECG 12-Lead Authored Date: Please click on pdf link to open report * Event Display: ECG 12-Lead Authored Date: Ventricular Rate: 55 BPM Atrial Rate: 55 BPM P-R Interval: 168 ms QRS Duration: 100 ms Q-T Interval: 472 ms QTC Calculation(Bazett): 451 ms P Walters: 54 degrees R Walters: 63 degrees T Walters: 36 degrees Sinus bradycardia Otherwise normal ECG When compared with ECG of 18-AUG-2021 08:52, No significant change was found Confirmed by JOAN KING ([id number]) on 06/05/2022 3:18:21 PM [place]: JOAN KING Patient Care team information Care Team Personnel Name: Stephania Arana NP Position: Reference Physician Member Role: PCP Address: Address: [address] [place] [id number] Name: [facility], ED Attending Position: [facility] ED Attendings Patient Name: Andreina Gautam Position: [facility] ED TA [facility] Name: Brenda PEREZ, Roya Position: [facility] ED RN W/OE and Tasks Member Role: Patient Care Provider Name: Daisy Grady MD Position: [facility] Resident Member Role: Admitting Physician Address: Address: [address] [place] [address]- Care Team Related Persons Name: HARLEY VILLA Address: [place] [address] Name: YANNICK WAGNER Address: home [address] [place] [address]
--- OUTSIDE RECORDS SUMMARY | 2023-10-30 00:37 | XMS_ITS | Continuity of Care Document ---
Author Organization [facility] ter Address [address] [place] [address]- Care Team Providers Care Real Estate Investor Name Role Phone Not on Staff, PCP Primary Care Physician Unavail able Encounter [facility] Date(s): 12/02/21 - 12/03/[address] [address]- Discharge Disposition: A-D/C Walkout Attending Physician: Not on Staff, Attending MD Admitting Physician: Not on Staff, Admitting MD Referring Physician: Not on Staff, Referring MD Allergies, Adverse Reactions, Alerts No Known Allergies Immunizations Given and Recorded Vaccine Date Status [...] each, 0 Refills, Maintenance, 08/18/21 13:51:00 EDT, [facility] #[id number], Partial fill upon patient request if the prescription is for a schedule II opioid drug., 3 pill twice daily for 5 d... Start Date: 08/18/21 Status: Ordered nirmatrelvir-ritonavir 150 mg-100 mg oral tablet See Instructions, 1 pill twice daily for 5 days, # 10 each, 0 Refills, Maintenance, 08/18/21 12:52:00 EDT, [facility] #[id number], Partial fill upon patient request if the prescription is for a schedule II opioid drug., 1 pill twice daily for 5 d... Start Date: 08/18/21 Status: Ordered Valium 5 mg oral tablet 5 mg, 1, tablet, By Mouth, 2 times a day, PRN, # 10 tablet, Refills 0, Tot. Refills 0, Maintenance,Pain , Moderate, 02/14/21 21:09:00 EDT, Route to Pharmacy Electronically, [facility]/pharmacy #[id number], Partial fill upon patient request if the prescription is... Start Date: 02/14/21 Status: Ordered Problem List Condition Effective Dates Status Health Status Inform ant COVID-19(Confirmed) 1 08/18/21 Active 1Problem added by Discern Expert Vital Signs Most recent to oldest [Reference Range]: 1 2 3 Oxygen Saturation [94-100 %] 100 % (12/02/21 11:09 PM) 99 % (12/02/21 8:52 PM) 100 % (12/02/21 6:35 PM) Pulse Rate [55-90 bpm] 51 bpm *L* (12/02/21 11:09 PM) 54 bpm *L* (12/02/21 8:52 PM) 55 bpm (12/02/21 6:35 PM) Blood Pressure [90-138/55-84 mm Hg] 125/76mm Hg (12/02/21 11:09 PM) 119/72mm Hg (12/02/21 8:52 PM) 128/73mm Hg (12/02/21 6:35 PM) Respiratory Rate [16-30 br/min] 19 br/min (12/02/21 4:21 PM) 18 br/min (12/02/21 4:04 PM) Temperature [96.8-100.4 DegF] 98.4 DegF (12/02/21 11:09 PM) 98.8 DegF (12/02/21 8:52 PM) 98.3 DegF (12/02/21 6:35 PM) Mode of Delivery (Oxygen) Room air (12/02/21 6:35 PM) Room air (12/02/21 4:21 PM) Room air (12/02/21 4:04 PM) Blood pressure sites Arm, right (12/02/21 11:09 PM) Arm, right (12/02/21 8:52 PM) Arm, right (12/02/21 6:35 PM) Temperature Route Oral (12/02/21 11:09 PM) Oral (12/02/21 8:52 PM) Oral (12/02/21 6:35 PM)
--- OUTSIDE RECORDS SUMMARY | 2023-10-30 00:37 | XMS_ITS | Continuity of Care Document ---
Author Organization [facility] ter Address [address] [place] [address]- Care Team Providers Care Home Organizer Name Role Phone Not on Staff, PCP Primary Care Physician Unavail able Encounter [facility] [place] Date(s): 07/06/22 - 07/06/[address] [address]- Discharge Disposition: A-D/C Walkout Attending Physician: Not [...] each, 0 Refills, Maintenance, 08/18/21 13:51:00 EDT, [facility] #[id number], Partial fill upon patient request if the prescription is for a schedule II opioid drug., 3 pill twice daily for 5 d... Start Date: 08/18/21 Status: Ordered nirmatrelvir-ritonavir 150 mg-100 mg oral tablet See Instructions, 1 pill twice daily for 5 days, # 10 each, 0 Refills, Maintenance, 08/18/21 12:52:00 EDT, [facility] #[id number], Partial fill upon patient request if the prescription is for a schedule II opioid drug., 1 pill twice daily for 5 d... Start Date: 08/18/21 Status: Ordered Valium 5 mg oral tablet 5 mg, 1, tablet, By Mouth, 2 times a day, PRN, # 10 tablet, Refills 0, Tot. Refills 0, Maintenance,Pain , Moderate, 02/14/21 21:09:00 EDT, Route to Pharmacy Electronically, [facility]/pharmacy #[id number], Partial fill upon patient request if the prescription is... Start Date: 02/14/21 Status: Ordered Problem List Condition Confirmation Course Effective Dates Status Health St atus Informant COVID-19 1 Confirmed 08/18/21 Active 1Problem added by Discern Expert Vital Signs Most recent to oldest [Reference Range]: 1 2 3 Height 168 cm (07/06/22 4:54 AM) Weight 78.2 kg (07/06/22 4:54 AM) Oxygen Saturation [94-100 %] 100 % (07/06/22 9:56 AM) 99 % (07/06/22 7:36 AM) 96 % (07/06/22 4:54 AM) Pulse Rate [55-90 bpm] 64 bpm (07/06/22 9:56 AM) 68 bpm (07/06/22 7:36 AM) 69 bpm (07/06/22 4:54 AM) Body Mass Index [18.5-24.99 kg/m2] 27.71 kg/m2 *H* (07/06/22 4:54 AM) Blood Pressure [90-138/55-84 mm Hg] 112/60mm Hg (07/06/22 9:56 AM) 116/67mm Hg (07/06/22 7:36 AM) 123/64mm Hg (07/06/22 4:54 AM) Respiratory Rate [16-30 br/min] 16 br/min (07/06/22 9:56 AM) 16 br/min (07/06/22 7:36 AM) 18 br/min (07/06/22 4:54 AM) Temperature [96.8-100.4 DegF] 97.9 DegF (07/06/22 9:56 AM) 97.9 DegF (07/06/22 7:36 AM) 97.7 DegF (07/06/22 4:54 AM) Mode of Delivery (Oxygen) Room air (07/06/22 9:56 AM) Room air (07/06/22 7:36 AM) Room air (07/06/22 4:54 AM) Blood pressure sites Arm, left (07/06/22 9:56 AM) Arm, right (07/06/22 7:36 AM) Arm, left (07/06/22 4:54 AM) Temperature Route Oral (07/06/22 9:56 AM) Oral (07/06/22 7:36 AM) Oral (07/06/22 4:54 AM) Dry Weight 78.2 kg (07/06/22 4:54 AM) Weight Obtained Via Patient/family state d (07/06/22 4:54 AM) Dry Weight Obtained Via Patient/family s tated (07/06/22 4:54 AM) Social History Social History Type Response Smoking Status Smoker, current stat us unknown entered on: 06/09/22 Sex Patient Care team information Care Team Personnel Name: Not on Staff, PCP Position: S Physician (General Medicine) Member Role: PCP Care Team Related Persons Name: HARLEY VILLA Address: [place] [address] Name: ANA ROSA WAGNER Address: [address] [address]
--- OUTSIDE RECORDS SUMMARY | 2023-10-30 00:37 | XMS_ITS | Continuity of Care Document ---
Author Organization [facility] ter Address [address] [place] [address]- Care Team Providers Care Supervisor Sawmill Name Role Phone Sumit RICE, Stephania Primary Care Physician [phone] [place] [facility] [place] - 03/14/[address] [address]- Encounter Diagnosis Back pain(Final) - 03/14/21 Discharge Disposition: A-D/C Home Attending Physician: Ifrah Ramos MD Admitting Physician: Ifrah Ramos MD Referring Physician: Not on Staff, Referring MD Allergies, Adverse Reactions, Alerts Substance Reaction Severity Status NKA Active Medications diclofenac 1% topical gel 1 application, [...] 02/14/21 21:09:00 EDT, Route to Pharmacy Electronically, [facility]/pharmacy #[id number], Partial fill upon patient request if the prescription is... Start Date: 02/14/21 Status: Ordered Results Radiology Reports * Exam Date Time Procedure Performing Provider Status 03/14/21 2:54 PM Chest 2 Views Frontal and Lat Miko Parra; Auth (Verified) Notes: (Chest 2 Views Frontal and Lat) Reason For Exam: Shortness of Breath, Fever;Other: RESULT: Chest 2 Views Frontal and Lat Chest 2 Views Frontal and Lat Hx of Present Illness: lower back pain x1 moonth or longer, took ibuprofen 1.5 hours ago with no effect.; Reason: Other:; Shortness of Breath, Fever; Clinical Question(s): Pneumonia COMPARISON: None here. FINDINGS: Lungs clear, no infiltrates. CP angles sharp. Cardiac silhouette, vascularity, hilar and mediastinal regions unremarkable. Bony thorax and surrounding soft tissues unremarkable. IMPRESSION: Negative chest. WSN: [id number] Ordering Physician: Toby Bernard Dictated By: Garth Guevara MD Dictated Date/Time: 03/14/21 3:07 pm Reviewed By: Garth Guevara MD Signed By: Garth Guevara MD Signed Date/Time: 03/14/21 3:07 pm Transcribed By: SUE Transcribed Date/Time: 03/14/21 3:06 pm Vital Signs Most recent to oldest [Reference Range]: 1 2 3 Oxygen Saturation [94-100 %] 99 % (03/14/21 8:15 PM) 99 % (03/14/21 5:50 PM) 97 % (03/14/21 2:18 PM) Pulse Rate [55-90 bpm] 58 bpm (03/14/21 8:15 PM) 60 bpm (03/14/21 5:50 PM) 58 bpm (03/14/21 2:18 PM) Blood Pressure [90-138/55-84 mm Hg] 122/86mm Hg (03/14/21 8:15 PM) 136/75mm Hg (03/14/21 5:50 PM) 107/55mm Hg (03/14/21 2:18 PM) Respiratory Rate [16-30 br/min] 16 br/min (03/14/21 8:15 PM) 16 br/min (03/14/21 5:50 PM) 16 br/min (03/14/21 2:18 PM) Temperature [96.8-100.4 DegF] 98.0 DegF (03/14/21 8:15 PM) 98.1 DegF (03/14/21 5:50 PM) 97.7 DegF (03/14/21 2:18 PM) Mode of Delivery (Oxygen) Room air (03/14/21 8:15 PM) Room air (03/14/21 5:50 PM) Room air (03/14/21 2:18 PM) Blood pressure sites Arm, right (03/14/21 8:15 PM) Arm, right (03/14/21 5:50 PM) Arm, right (03/14/21 2:18 PM) Temperature Route Oral (03/14/21 8:15 PM) Oral (03/14/21 5:50 PM) Oral (03/14/21 2:18 PM)
--- OUTSIDE RECORDS SUMMARY | 2023-10-30 00:37 | XMS_ITS | Continuity of Care Document ---
Author Organization [facility] ter Address [address] [place] [address]- Care Team Providers Care Bag Bailer Name Role Phone Not on Staff, PCP Primary Care Physician Unavail able [place] [facility] [place](s): 06/16/22 - 06/17/[address] [address]- Discharge Disposition: A-D/C Home Attending Physician: Beto Cooney MD Admitting Physician: Beto Cooney MD Referring Physician: Not on Staff, Referring [...] each, 0 Refills, Maintenance, 08/18/21 13:51:00 EDT, [facility] #[id number], Partial fill upon patient request if the prescription is for a schedule II opioid drug., 3 pill twice daily for 5 d... Start Date: 08/18/21 Status: Ordered nirmatrelvir-ritonavir 150 mg-100 mg oral tablet See Instructions, 1 pill twice daily for 5 days, # 10 each, 0 Refills, Maintenance, 08/18/21 12:52:00 EDT, [facility] #[id number], Partial fill upon patient request if the prescription is for a schedule II opioid drug., 1 pill twice daily for 5 d... Start Date: 08/18/21 Status: Ordered Valium 5 mg oral tablet 5 mg, 1, tablet, By Mouth, 2 times a day, PRN, # 10 tablet, Refills 0, Tot. Refills 0, Maintenance,Pain , Moderate, 02/14/21 21:09:00 EDT, Route to Pharmacy Electronically, [facility]/pharmacy #[id number], Partial fill upon patient request if the prescription is... Start Date: 02/14/21 Status: Ordered Problem List Condition Confirmation Course Effective Dates Status Health St atus Informant COVID-19 1 Confirmed 08/18/21 Active 1Problem added by Discern Expert Vital Signs Most recent to oldest [Reference Range]: 1 2 3 Oxygen Saturation [94-100 %] 99 % (06/17/22 7:41 AM) 98 % (06/16/22 8:00 PM) 98 % (06/16/22 5:04 PM) Pulse Rate [55-90 bpm] 49 bpm *L* (06/17/22 7:41 AM) 57 bpm (06/16/22 8:00 PM) 52 bpm *L* (06/16/22 5:04 PM) Blood Pressure [90-138/55-84 mm Hg] 121/73mm Hg (06/17/22 7:41 AM) 158/58mm Hg *H* (06/16/22 8:00 PM) 117/72mm Hg (06/16/22 5:04 PM) Respiratory Rate [16-30 br/min] 18 br/min (06/17/22 7:41 AM) 16 br/min (06/16/22 8:00 PM) 18 br/min (06/16/22 5:04 PM) Temperature [96.8-100.4 DegF] 98.4 DegF (06/17/22 7:41 AM) 98.0 DegF (06/16/22 8:00 PM) 98.0 DegF (06/16/22 5:04 PM) Mode of Delivery (Oxygen) Room air (06/17/22 7:41 AM) Room air (06/16/22 8:00 PM) Room air (06/16/22 5:04 PM) Blood pressure sites Arm, left (06/17/22 7:41 AM) Arm, right (06/16/22 8:00 PM) Arm, right (06/16/22 1:56 PM) Temperature Route Oral (06/17/22 7:41 AM) Oral (06/16/22 8:00 PM) Oral (06/16/22 5:04 PM) Social History Social History Type Response Smoking Status Smoker, current stat us unknown entered on: 06/09/22 Sex EKG study * Event Display: ECG 12-Lead Authored Date: Please click on pdf link to open report * Event Display: ECG 12-Lead Authored Date: Ventricular Rate: 62 BPM Atrial Rate: 62 BPM P-R Interval: 144 ms QRS Duration: 90 ms Q-T Interval: 456 ms QTC Calculation(Bazett): 462 ms P [place]: 73 degrees R [place]: 65 degrees T [place]: 64 degrees Normal sinus rhythm Normal ECG When compared with ECG of 09-JUN-2022 06:24, No significant change was found Confirmed by LARRY WILSON ([id number]) on 06/16/2022 1:44:38 PM Mead: LARRY WILSON Note * Eros GARCIA, Beto Varma: PERFORM Event Display: Patient Education Leaflets Authored Date: Schizophrenia, General Type ?? [id number] Schizophrenia, General Type Schizophrenia is a chronic, severe, often disabling mental health disorder that makes functioning in work and society difficult. The difference been reality and what you think is reality becomes blurred in your mind. Schizophrenia is not as common as other severe mental health problems, but it can have a severe, disabling effect on a person. It usually first appears in adolescence or early adulthood. One or more bout of symptoms must last for at least 6 months before a diagnosis is made. The cause of schizophrenia is not yet known. It's believed to be a result of genetic and biologicalfactors (brain chemistry and structure). Schizophrenia does run in families and occurs in about 1 in 100 adults. Environmental factors may also have a role in schizophrenia. These may include where you grew up, toxins you are exposed to, and infections you've had. Symptoms include: ??? Loss of touch with reality (psychosis) ??? Seeing or hearing things that are not there (hallucinations) ??? False beliefs (delusions) ??? Disorganized thinking and speech ??? Severe anxiety ??? Feeling unreal ??? Paranoia ??? Insomnia ??? Trouble thinking or concentrating clearly ??? Depressionor feeling suicidal ??? Withdrawal from those around you (social withdrawal) ??? Limited range of emotions (flat affect) ??? Problems with reasoning and problem solving (cognitive deficits) ??? Problems at work because of the above symptoms Medicines and therapy can help with many of the symptoms. They can help you better function each day and improve your quality of life. These medicines take 2 to 4 weeks to start working and 6 to 8 weeks to take full effect. Because schizophrenia is complex and severe, treatment is also complex. It can include ongoing psychotherapy, community resource networking, and rehab programs such as occupational training. It's common to feel that you are not ill and that you don't need treatment. It's important to accept the support of friends and family in continuing to take your medicine, continue with psychotherapy, and us suggested community resources. Home care ??? Ongoing care and support help manage this disease. Find a healthcare provider and therapist who meet your needs. Seek help when you feel like your symptoms are getting worse or when family and friends ask you to seek help. ??? Tell each of your healthcare providers about all of the prescription medicines, thpx-zlb-ksmjyys medicines, vitamins, and supplements you take. Certain supplements interact with medicines and can cause dangerous side effects. Ask your pharmacist when you have questions about medicine interactions. If you drink alcohol, let your provider know when and how much you use. ??? Be sure to take all of your medicine as directed and get regular blood work to check your medicine level and your overall health. Take the medicines and get the follow-up lab work as prescribed,??even if you think you don???t need it. Never change your medicine dose or stop taking your medicines unless you check with your provider. Never share your medicine or use someone else's me dicine. ??? Seek support from trusted??friends or family by talking about your feelings and thoughts. Ask them to help you recognize behavior changes early so you can get help. If needed, your healthcare provider can adjust your medicines. ??? If you are having trouble managing workplace issues, orcaring for yourself because of your schizophrenia, contact your local Americans with Disabilities (A DA) office to see if they can help. The U.S. Department of Justice operates a toll-free ADA information line at: 513.224.7650 (voice) or 498-481-2079 (TTY). You can also check the ADA website at www.ada.gov. They can help you find a local office. ?? Follow-up care Follow up with your healthcare provider or therapist, or as advised. ?? Call [facility] Call [facility] if you: ??? Have suicidal thoughts, a suicide plan, and the means to carry out the plan ??? Have trouble breathing ??? Are very confused ??? Are very drowsy or have trouble awakening ??? Feel faint or lose consciousness ??? Have rapid heart rate, very low heart rate, or a new irregular heart rate ??? Have a seizure When you call or text 988, you will be connected to trained crisis counselors. An online chat option is also available. [employer] is free and available 07/12. The [facility] counselors will work closely with [facility] to get you the care you need. ?? When to seek medical advice Call your healthcare provider right away if any of these occur: ??? Your??symptoms get worse ??? Family or friends express concern over your behavior and ask you to seek help ??? Feeling out of control or that you are being controlled by others ??? Feeling like you want to harm yourself or another ??? Unable to care for yourself ??? Hallucinations get worse ??? Delusions or paranoia get worse ???Hearing voices that are telling you to harm yourself or others ??? Depression or anxiety get worse ??? New symptoms ?? Last Reviewed Date: 2021 ?? 2615-3856 [employer]. All rights reserved. This information is not intended as a substitute for professional medical care. Always follow your healthcare professional's instructions. ?? Patient Care team information Care Team Personnel Name: Not on Staff, PCP Position: [facility] Physician (General Medicine) Member Role: PCP Name: *[facility], ED Attending Position: [facility] ED Attendings Patient Name: Graeme Rosen RN Position: [facility] ED RN W/OE and Tasks Member Role: Patient Care Provider Name: Beto Cooney MD Position: [facility] ED Medicine MD Member Role: ED Attending Physician Address: Address: [address] [place] [address] Emergency [place], [place] [address] Care Team Related Persons Name: HARLEY VILLA Address: [place] [address] Name: ANA ROSA WAGNER Address: home [address] [place] [address]
--- OUTSIDE RECORDS SUMMARY | 2023-10-30 00:37 | XMS_ITS | Continuity of Care Document ---
Author Organization [facility] ter Address [address] [place] [address]- Care Team Providers Care Parts Salesperson Name Role Phone Sumit RICE, Stephania Primary Care Physician [phone] [place] [facility] [id number] Date(s): 10/30/22 - 10/30/[address] [address]- Encounter Diagnosis Suicidal ideation(Final) - 10/30/22 Depression(Final) - 10/30/22 Discharge Disposition: A-D/C Home Attending Physician: Ree Mauricio MD Admitting Physician: Ree Mauricio MD Referring Physician: Not on Staff, Referring MD Allergies, Adverse Reactions, Alerts Substance Reaction Severity Status Seafood Active Immunizations Given and Recorded Vaccine Date Status Refusal Reason SARS-CoV-2 (COVID-19) mRNA-1273 vaccine 07/26/21 R ecorded SARS-CoV-2 (COVID-19) mRNA-1273 vaccine 05/24/21 R ecorded Medications diclofenac 1% topical gel 1 application, Topically, 4 times a day, # 100 Gm, 0 Refills, Maintenance, 03/14/21 20:03:00 EDT, Gel, [facility]/pharmacy #[id number], Partial fill upon patient request if the prescription is for a schedule II opioid drug. Start Date: 03/14/21 Status: Ordered ibuprofen 600 mg oral tablet 600 mg, 1, tablet, By Mouth, Every 6 hours, # 30 tablet, Refills 0, Tot. Refills 0, Maintenance, 02/14/21 21:09:00 EDT, Route to Pharmacy Electronically, [facility]/pharmacy #[id number], Partial fill upon patientrequest if the prescription is for a schedule II op... Start Date: 02/14/21 Status: Ordered lidocaine 5% topical film 1 patch, Topically, Daily, PRN Pain , Mild, remove after 12 hours, # 13 each, 0 Refills, Maintenance, 03/14/21 20:03:00 EDT, Film, [facility]/pharmacy #[id number], Partial fill upon patient request if the prescription is for a schedule II opioid drug., 1 patch Top... Start Date: 03/14/21 Status: Ordered nirmatrelvir-ritonavir 150 mg-100 mg oral tablet See Instructions, 3 pill twice daily for 5 days, # 30 each, 0 Refills, Maintenance, 08/18/21 13:51:00 EDT, [facility] #[id number], Partial fill upon patient request if the prescription is for a schedule II opioid drug., 3 pill twice daily for 5 d... Start Date: 08/18/21 Status: Ordered nirmatrelvir-ritonavir 150 mg-100 mg oral tablet See Instructions, 1 pill twice daily for 5 days, # 10 each, 0 Refills, Maintenance, 08/18/21 12:52:00 EDT, [facility] #[id number], Partial fill upon patient request if the prescription is for a schedule II opioid drug., 1 pill twice daily for 5 d... Start Date: 08/18/21 Status: Ordered Valium 5 mg oral tablet 5 mg, 1, tablet, By Mouth, 2 times a day, PRN, # 10 tablet, Refills 0, Tot. Refills 0, Maintenance,Pain , Moderate, 02/14/21 21:09:00 EDT, Route to Pharmacy Electronically, [facility]/pharmacy #[id number], Partial fill upon patient request if the prescription is... Start Date: 02/14/21 Status: Ordered Problem List Condition Confirmation Course Effective Dates Status Health St atus Informant COVID-19 1 Confirmed 08/18/21 Active 1Problem added by Discern Expert Vital Signs Most recent to oldest [Reference Range]: 1 2 3 Oxygen Saturation [94-100 %] 94 % (10/30/22 7:51 PM) 97 % (10/30/22 1:41 PM) 95 % (10/30/22 5:08 AM) Pulse Rate [55-90 bpm] 56 bpm (10/30/22 7:51 PM) 67 bpm (10/30/22 1:41 PM) 71 bpm (10/30/22 5:08 AM) Blood Pressure [90-138/55-84 mm Hg] 114/65mm Hg (10/30/22 7:51 PM) 108/57mm Hg (10/30/22 1:41 PM) 146/72mm Hg *H* (10/30/22 5:08 AM) Respiratory Rate [16-30 br/min] 17 br/min (10/30/22 7:51 PM) 18 br/min (10/30/22 1:41 PM) 18 br/min (10/30/22 5:08 AM) Temperature [96.8-100.4 DegF] 98.0 DegF (10/30/22 7:51 PM) 97.6 DegF (10/30/22 1:41 PM) 98.2 DegF (10/30/22 5:08 AM) Mode of Delivery (Oxygen) Room air (10/30/22 7:51 PM) Room air (10/30/22 1:41 PM) Room air (10/30/22 5:08 AM) Temperature Route Oral (10/30/22 7:51 PM) Oral (10/30/22 1:41 PM) Oral (10/30/22 5:08 AM) Social History Social History Type Response Smoking Status Smoker, current stat us unknown entered on: 06/09/22 Sex Note * Hang GARCIA, Ree Finn: PERFORM Event Display: Patient Education Leaflets Authored Date: [id number] Alcohol Abuse ?? [id number] Alcohol Abuse Alcoholic drinks harm you when [...] ??? Duties at home or with child care center administrator suffer because of drinking. ??? Duties at [...] problems ??? Seizures These changes may be skilled nursing (permanent). Heart and blood vessels Alcohol can [...] and Substance Abuse Information Center (NASAIC) at www.addictioncareMagnum Hunter Resources or 110-363-3688 ??? National [place] on Alcoholism and Drug Dependence (NCADD) at www.ncadd.org or 344-RDP-NASQ (744-535-6544) ?? Call 911 Call 911 if any [...] shakiness ?? Last Reviewed Date: 2021 ?? 3803-7607 [employer]. All rights reserved. This information is not intended as a substitute for professional medical care. Always follow your healthcare professional's instructions. ?? Patient Care team information Care Team Personnel Name: Stephania Arana NP Position: Reference Physician Member Role: PCP Address: Address: [address] [place], [place] [address] [address]- Name: *SEJAL, ED Attending Position: S ED Attendings Patient Name: Neel Agrawal Position: [facility] ED TA [facility] Name: Ree Mauricio MD Position: [facility] ED Medicine MD Member Role: Admitting Physician Address: Address: [address] [place] [id number] Name: Christina Chaidez RN Position: [facility] ED RN W/OE and Tasks Member Role: Patient Care Provider Care Team Related Persons Name: HARLEY VILLA Address: [place] [address] Name: ANA ROSA WAGNER Address: home [address] [place] [address]
--- OUTSIDE RECORDS SUMMARY | 2023-10-30 00:37 | XMS_ITS | Continuity of Care Document ---
Author Organization [facility] ter Address [address] [place] [id number]- Care Team Providers Care Shield Operator Name Role Phone Not on Staff, PCP Primary Care Physician Unavail able Encounter [facility] Date(s): 02/02/22 - 02/03/[address] [id number]- Encounter Diagnosis Headache(Final) - 02/03/22 Discharge Disposition: A-D/C Home Attending Physician: Beto [...] each, 0 Refills, Maintenance, 08/18/21 13:51:00 EDT, [facility] #[id number], Partial fill upon patient request if the prescription is for a schedule II opioid drug., 3 pill twice daily for 5 d... Start Date: 08/18/21 Status: Ordered nirmatrelvir-ritonavir 150 mg-100 mg oral tablet See Instructions, 1 pill twice daily for 5 days, # 10 each, 0 Refills, Maintenance, 08/18/21 12:52:00 EDT, [facility] #[id number], Partial fill upon patient request if the prescription is for a schedule II opioid drug., 1 pill twice daily for 5 d... Start Date: 08/18/21 Status: Ordered Valium 5 mg oral tablet 5 mg, 1, tablet, By Mouth, 2 times a day, PRN, # 10 tablet, Refills 0, Tot. Refills 0, Maintenance,Pain , Moderate, 02/14/21 21:09:00 EDT, Route to Pharmacy Electronically, [facility] #[id number], Partial fill upon patient request if the prescription is... Start Date: 02/14/21 Status: Ordered Problem List Condition Effective Dates Status Health Status Inform ant COVID-19(Confirmed) 1 08/18/21 Active 1Problem added by Discern Expert Vital Signs Most recent to oldest [Reference Range]: 1 2 3 Height 168 cm (02/02/22 8:14 AM) 168 cm (02/02/22 8:08 AM) Weight 79.5 kg (02/02/22 8:14 AM) 79.5 kg (02/02/22 8:08 AM) Oxygen Saturation [94-100 %] 97 % (02/03/22 3:34 AM) 98 % (02/03/22 1:26 AM) 98 % (02/02/22 11:11 PM) Pulse Rate [55-90 bpm] 56 bpm (02/03/22 3:34 AM) 61 bpm (02/03/22 1:26 AM) 70 bpm (02/02/22 11:11 PM) Body Mass Index [18.5-24.99] 28.17 *H* (02/02/22 8:14 AM) Blood Pressure [90-138/55-84 mm Hg] 124/73mm Hg (02/03/22 3:34 AM) 133/72mm Hg (02/03/22 1:26 AM) 130/96mm Hg (02/02/22 11:11 PM) Respiratory Rate [16-30 br/min] 18 br/min (02/02/22 2:14 PM) 18 br/min (02/02/22 12:18 PM) 18 br/min (02/02/22 10:27 AM) Temperature [96.8-100.4 DegF] 97.4 DegF (02/03/22 3:34 AM) 98.0 DegF (02/03/22 1:26 AM) 97.6 DegF (02/02/22 11:11 PM) Mode of Delivery (Oxygen) Room air (02/03/22 3:34 AM) Room air (02/03/22 1:26 AM) Room air (02/02/22 11:11 PM) Blood pressure sites Arm, left (02/02/22 11:11 PM) Arm, left (02/02/22 7:50 PM) Arm, left (02/02/22 5:24 PM) Temperature Route Oral (02/03/22 3:34 AM) Oral (02/03/22 1:26 AM) Oral (02/02/22 11:11 PM) Dry Weight 79.5 kg (02/02/22 8:14 AM) 79.5 kg (02/02/22 8:08 AM) Care Team Personnel Name: Not on Staff, PCP
[2023-10-30 01:24] VITALS: BP 139/85; PULSE 60; RESP 18; TEMP 36.4; O2SAT 97
[2023-10-30 02:38] VITALS: BMI 28.1
--- NOTE | 2023-10-30 03:08 | PC.ADMIT ---
Brando is a 43 year old, born male who presented to [facility] for SI without a plan. Mental health diagnosis include unspecified depression, anxiety and cocaine use disorder. Tox screen positive for THC, cocaine-COWS 0, fentanyl and buprenorphine. He is A/Ox3, steady gait, intermittent eye contact, flat/depressed, denies SI/HI/AVH. Skin assessment negative/intact, contraband checked negative, completed with 2 staff. He verbalized that he is currently homeless, no support system or OP providers. Plan of Care Goal is safety, medication management, stabilization and connection to community providers/support systems. Brando was provided snacks, and shown to assigned room. Hospitalist German and Dr. Martinez updated, NNO.
[2023-10-30 07:30] VITALS: BP 111/70; PULSE 58; RESP 14; TEMP 36.4; O2SAT 97
--- NOTE | 2023-10-30 08:09 | P.HPPS_ITS ---
HPI Date of Service: 10/30/23 Chief Complaint: unspecified depressive disorder, cocaine use disor Sources of Information: patient interviewed, chart reviewed and crisis/core team assessment reviewed HPI Subjective Notes: Welch Warning and Conditional Voluntary Healthcare Proxy: No Guardianship: No Medical Problems Affecting Mental Status: No Narrative: Luke is a 43 year old, single, father of 3, 2 surviving. He was discharged recently from [facility] about a week ago. He states that he has been feeling depressed for over a month, since mother's day. This is an anniversary of his mother's in 1999 17 and 2019 was the the time that his 3rd child for unknown reasons. He has been hospitalized several times including this hospital. He was not very cooperative with the interview and the information is obtained primarily from the crisis report. According to records he is on Campral 666 mg t.i.d., buprenorphine 8-2 mg t.i.d., gabapentin 600 mg at night, hydroxyzine 50 mg p.r.n. loratadine 10 mg daily, Remeron 15 mg nightly, olanzapine 5 mg b.i.d. p.r.n. and trazodone 50 mg nightly. He denies any current or recent substance abuse but does have history of cocaine, THC and alcohol dependence/use. He came back to the emergency room because ongoing depression and suicidal ideations with some thoughts of jumping off of a bridge which he has had previously and seriously on 3 occasions. He has never actually gone through with it. Outpatient connections not clear Past Psychiatric History: History of respite in 2022. Crisis evaluations at [facility]. Treatment through [facility]. Medical Evaluation Reviewed: Yes (Reviewed) [facility] Medical History Cocaine use disorder Family History: Unknown Social History: Single, no children (per CARE team evaluation he had a child that passed at age 6 months old). Grew up in [place]. Parents when he was 11 years old. As soon as I brought up his background and siblings he became extremely anxious, irritable and slightly angry and walked out Substance History: Cocaine, THC, opiates, alcohol Trauma History: Reported that his incarceration was a traumatic experience. Diagnostics Vital Signs (24Hr): Vital Signs - 24 hr 10/30/23 01:24 Temperature 97.6 F Pulse Rate 60 Respiratory Rate 18 Blood Pressure 139/85 Pulse Oximetry 97 Oxygen Delivery Method Room Air BMI result Body Mass Index 28.1 EKG EKG: reviewed EKG Comment: Bradycardia Meds/Allergies Meds Home Medications ?Medication ?Instructions ?Recorded ?Confirmed ?Type gabapentin 600 mg tablet 600 mg PO BEDTIME 10/28/22 10/30/23 History hydroxyzine HCl 25 mg tablet 25 mg PO Q6H PRN anxiety 10/28/22 10/30/23 History mirtazapine 15 mg tablet 15 mg PO BEDTIME 10/28/22 10/30/23 History olanzapine 10 mg tablet 10 mg PO BEDTIME PRN Anxiety 10/28/22 10/30/23 History trazodone 50 mg tablet 50 mg PO BEDTIME PRN insomnia 10/28/22 10/30/23 History Allergies Allergies Allergy/AdvReac Type Severity Reaction Status Date / Time seafood Allergy Unknown Verified 10/10/22 14:07 Mental Status Exam Mental Status Exam Narrative: Luke was seen the morning after his admission. He is alert, oriented and somewhat irritable. Speech is normal. Little to no eye contact. Affect is appropriate, irritable, constricted. Denies any AVH. Admits to suicidal idea tions but not currently. No delusions overtly. Could not be examined cognitively but appears to be intact on observation. Judgment is intact patient. He became irritable and anxious when I asked him about his background, especially siblings and walked out. Assessment & Plan Assessment & Plan (1) Major depression, recurrent: Status: Acute Code(s): F33.9 - Major depressive disorder, recurrent, unspecified Plan Luke was admitted on a CV for safety and stabilization. Current medications were continued. I will try to talk to him later today or tomorrow to see whether he is interested on being on an antidepressant. Patient educated on: diagnosis, medication risk/benefits and substance abuse Reason for continued inpatient stay Substantial Risk for: harm to self Statement Statement: I have reviewed the history and physical and performed a pertinent examination on my patient. No changes have occurred unless specified. If the History and Physical was not performed prior to admission, the Hospitalist's service will be consulted for completing the admission physical. Time Spent With Patient Time: Total time managing care of this patient today ____ minutes.
[2023-10-30] MEDS: Buprenorphine/Naloxone 8/2 mg FILM 1 FILM SUBLINGUAL ×3 (08:52→20:32)
[2023-10-30] MEDS: hydrOXYzine HCL 25 MG TABLET PO (09:34)
[2023-10-30] MEDS: Acamprosate Calcium 333 MG TABLET.DR 666 MG PO ×3 (09:34→20:31)
[2023-10-30] MEDS: OLANZapine 5 MG TABLET PO (09:35)
[2023-10-30] MEDS: Gabapentin 100 MG CAPSULE 200 MG PO ×3 (09:35→20:32)
--- NOTE | 2023-10-30 11:19 | HO.PM.IMCN ---
History of Present Illness Data of Consult Service Date: 10/30/23 Primary Care Provider: Unknown Physician HPI Reason for consult: Admission H&P Pt is a 43-year-old male with a PMH significant for peripheral neuropathy, anxiety, and depression who is admitted to psychiatry unit for increasing depression with vague SI and vague HI. Patient initially presented to [facility] ED and apparently there was unable to further clarify any of his plans. Medical consult for admission H&P. ?Patient reports only chronic medical condition is nerve damage in his fingers. Has not followed 15-20 years. Patient denies any acute medical concerns. No chest pain/Pressure, palpitations. Denies shortness of breath. No fever, chills, nausea, abdominal pain. Denies headache or acute vision changes. Labs ED reviewed, grossly unremarkable. Review of Systems Review of Systems: Denies any acute medical concerns at this time [facility] Medical History (Updated 10/30/23 @ 12:30 by NANCY Childress) Peripheral neuropathy Cocaine use disorder Social History Household Members: None Housing: Homeless Do you presently have visiting nurse or other home services: No Patient Tobacco Use Status: Never used Tobacco Tobacco use type: Cigarette Cigarettes Per Day: 10 Smoked in Last 30 Days: Yes e-Cigarette/Vaping Use: Never Used Patient Interested in Nicotine Replacement: No Patient Given Instructions on How to Stop Smoking: No (not interested) Second Hand Smoke Exposure: No Use of substances other than those prescribed or required for medical reasons: Yes Substance Use Type: Crack/Cocaine and Marijuana Substance Use Type Other:: Fentyl and Buprenorphine Currently Displaying Signs/Symptoms of Drug Intoxication Withdrawal: No Any prior treatment program specific to substance use: Yes (On Suboxone) Have you been hit, kicked, punched, or otherwise hurt by someone within the past year? If so, by whom?: No Do you feel safe in your current relationship?: No Current Relationship Is there a partner from a previous relationship who is making you feel unsafe now?: No Are you made to feel afraid or neglected: No Advance Directives: No Advance Directives Information Provided: Yes Advance Directives on File: No Do you have thoughts of harming others: None Do you have a plan to hurt others: No Plan Recently lost weight without trying: No How much weight loss: Not applicable Eating poorly because of decreased appetite: No Nutrition screen score: 0 Nutrition Risks: No Nutritional Risk Poor oral hygiene: No service: No Sexual orientation: Straight/Heterosexual Meds Allergies Allergy/AdvReac Type Severity Reaction Status Date / Time seafood Allergy Unknown Verified 10/10/22 14:07 Active Medications: Current Medications Acamprosate (Acamprosate Calcium 333 Mg Tablet.) 666 mg PO TID [facility] Last Admin: 10/30/23 09:34 Dose: 666 mg Acetaminophen (Acetaminophen 325 Mg Tablet) 650 mg PO Q6H PRN PRN Reason: Headache/Pain Mild Scale (1-3) Al Hydroxide/Mg Hydroxide (Magnesium Hydrox/Alum Hydrox 30 Ml Oral.Susp) 30 ml PO Q6H PRN PRN Reason: Heartburn/Nausea Buprenorphine/Naloxone (Buprenorphine/Naloxone 8/2 Mg Film) 1 film SUBLINGUAL TID [facility] Gabapentin (Gabapentin 100 Mg Capsule) 200 mg PO TID [facility] Last Admin: 10/30/23 09:35 Dose: 200 mg Hydroxyzine HCl (Hydroxyzine Hcl 25 Mg Tablet) 25 mg PO Q6H PRN PRN Reason: Anxiety Last Admin: 10/30/23 09:34 Dose: 25 mg Magnesium Hydroxide (Milk Of Magnesia 30 Ml Oral.Susp) 30 ml PO DAILY PRN PRN Reason: Constipation Mirtazapine (Mirtazapine 15 Mg Tablet) 15 mg PO BEDTIME [facility] Nicotine (Nicotine 21 Mg Patch.Td24) 21 mg TRANSDERMA DAILY PRN PRN Reason: smoking cessation Nicotine Polacrilex (Nicotine Polacrilex 2 Mg Gum) 4 mg BUCCAL Q2H PRN PRN Reason: Nicotine Cravings Olanzapine (Olanzapine 5 Mg Tablet) 5 mg PO TID PRN PRN Reason: agitation Last Admin: 10/30/23 09:35 Dose: 5 mg Trazodone HCl (Trazodone Hcl 50 Mg Tablet) 50 mg PO BEDTIME MRX1 PRN PRN Reason: Insomnia Home Medications ?Medication ?Instructions ?Recorded ?Confirmed ?Last Taken ?Type gabapentin 600 mg tablet 600 mg PO BEDTIME 10/28/22 10/30/23 10/29/23 22:00 History 200 hydroxyzine HCl 25 mg tablet 25 mg PO Q6H PRN anxiety 10/28/22 10/30/23 Unknown History mirtazapine 15 mg tablet 15 mg PO BEDTIME 10/28/22 10/30/23 10/29/23 22:00 History olanzapine 10 mg tablet 10 mg PO BEDTIME PRN Anxiety 10/28/22 10/30/23 Unknown History trazodone 50 mg tablet 50 mg PO BEDTIME PRN insomnia 10/28/22 10/30/23 Unknown History Physical Exam Vital Signs and Narrative: Vital Signs: Last Vital Signs Temp 97.6 F 10/30/23 07:30 Pulse 58 10/30/23 07:30 Resp 14 10/30/23 07:30 BP 111/70 10/30/23 07:30 Pulse Ox 97 10/30/23 07:30 O2 Del Method Room Air 10/30/23 07:30 BMI result Body Mass Index 28.1 General: AOx3, no acute distress Resp: CTA bilaterally CVS: S1, S2, RRR GI: +BS, NT, no distention Skin: Warm, dry Neuro: Cranial nerves II-XII grossly intact bilaterally. Motor grossly intact bilaterally Extremities: No edema Psych: Appropriate affect Assessment and Plan (1) Medical clearance for psychiatric admission: Status: Acute Plan Pt is a 43-year-old male with a PMH significant for peripheral neuropathy, anxiety, and depression who is admitted to [facility] psychiatry unit for increasing depression with vague SI and vague HI. Patient initially presented to [facility] ED and apparently there was unable to further clarify any of his plans. Medical consult for admission H&P. ? Mood disorder Plan as per Psychiatry Peripheral neuropathy Continue gabapentin Patient otherwise has no acute medical complaints or chronic medical conditions. Will sign off for now. Thank you for allowing to participate in the care of this patient. Please re-consult if any acute issues or questions arise.
[2023-10-30 20:00] VITALS: BP 120/83; PULSE 59; RESP 16; TEMP 36.6; O2SAT 98
[2023-10-30] MEDS: Mirtazapine 15 MG TABLET PO (20:33)
[2023-10-31 08:00] VITALS: BP 144/72; PULSE 55; RESP 20; TEMP 36.4; O2SAT 98
[2023-10-31 08:34] LABS: Estimated Average Glucose 114 mg/dL; Hemoglobin A1c % 5.6 % (<6.0)
[2023-10-31 08:43] LABS: Alanine Aminotransferase 32 U/L (0-40); Albumin Level 3.5 g/dL (3.5-5.0); Alkaline Phosphatase 106 U/L (39-117); Anion Gap 11 (12-20); Aspartate Amino Transferase 23 U/L (5-37); Bilirubin Total 0.3 mg/dL (0.0-1.0); Blood Urea Nitrogen 15 mg/dL (9-16); Calcium 9.4 mg/dL (8.4-10.2); Carbon Dioxide 32 mmol/L (22-29); Chloride 102 mmol/L (96-108); Cholesterol 192 mg/dL (<200); Estimated Glomerular Filt Rate > 60; Glucose Fasting 85 mg/dL (60-99); HDL Cholesterol 43 mg/dL (>40); LDL Cholesterol Calculated 118 mg/dL (<100); Potassium 4.2 mmol/L (3.3-5.1); Sodium 141 mmol/L (135-145); Total Protein 6.8 g/dL (6.5-8.0); Triglycerides 159 mg/dL (<150)
[2023-10-31] MEDS: Gabapentin 100 MG CAPSULE 200 MG PO ×3 (08:44→20:30)
[2023-10-31] MEDS: Acamprosate Calcium 333 MG TABLET.DR 666 MG PO ×3 (08:44→20:29)
[2023-10-31] MEDS: Buprenorphine/Naloxone 8/2 mg FILM 1 FILM SUBLINGUAL ×3 (08:46→20:31)
--- NOTE | 2023-10-31 10:01 | HO.PSYCHPN ---
Subjective Subjective Date of Service: 10/31/23 Reason For Visit: unspecified depressive disorder, cocaine use disor Subjective Notes: Conditional Voluntary Healthcare Proxy: No Guardianship: No Medical Problems Affecting Mental Status: No Interim History: Luke was seen and discussed in rounds today. Records and plans were reviewed. He was in a better mood today and was able to talk to me about some historical information that I was not able to obtain from him after he walked out when the issue of his siblings came up. He does admit to having had hypomanic episodes, accompanied by classic symptoms. They last several days and he gets them several times a year. In the past he has been on Depakote but did not like the side effects and also did not want to do blood tests. He is open to trying another mood stabilizer and I initiated Trileptal 150 mg nightly to be increased up to 900 mg over his stay here. Side effects discussed. He has been eating and sleeping adequately. No withdrawal symptoms. No other changes were made today Medication Compliance: Yes Side effects from medications: No Review of Systems Review of Systems Yes all other systems are reviewed and are negative Mental Status Exam Mental Status Exam Narrative: In today's visit he is alert, oriented and pleasant. Normal speech. Moderate eye contact. Affect is appropriate and slightly subdued. No signs of psychosis. No SI. Cognitively is intact. No signs of hypomania. Judgment is intact. He also apologized for his irritability and behavior yesterday. Diagnostics Vital Signs (24Hr): Vital Signs - 24 hr 10/30/23 20:00 10/31/23 08:00 Temperature 97.9 F 97.5 F Pulse Rate 59 55 Respiratory Rate 16 20 Blood Pressure 120/83 144/72 H Pulse Oximetry 98 98 Oxygen Delivery Method Room Air Room Air BMI result Body Mass Index 28.1 Labs 10/31/23 08:08 Labs: Laboratory Results - last 48 hr 10/31/23 08:08 Sodium 141 Potassium 4.2 Chloride 102 Carbon Dioxide 32 H Anion Gap 11 L BUN 15 Creatinine 0.96 Estim Creat Clear Calc 99.0 Estimated GFR > 60 Fasting Glucose 85 Estimat Average Glucose 114 Hemoglobin A1c % 5.6 Calcium 9.4 Total Bilirubin 0.3 AST 23 ALT 32 Alkaline Phosphatase 106 Total Protein 6.8 Albumin 3.5 Triglycerides 159 H Cholesterol 192 LDL Cholesterol, Calc 118 H HDL Cholesterol 43 Medications Medications Current Medications Acamprosate (Acamprosate Calcium 333 Mg Tablet.) 666 mg PO TID [facility] Last Admin: 10/31/23 08:44 Dose: 666 mg Acetaminophen (Acetaminophen 325 Mg Tablet) 650 mg PO Q6H PRN PRN Reason: Headache/Pain Mild Scale (1-3) Al Hydroxide/Mg Hydroxide (Magnesium Hydrox/Alum Hydrox 30 Ml Oral.Susp) 30 ml PO Q6H PRN PRN Reason: Heartburn/Nausea Buprenorphine/Naloxone (Buprenorphine/Naloxone 8/2 Mg Film) 1 film SUBLINGUAL TID [facility] Last Admin: 10/31/23 08:46 Dose: 1 film Gabapentin (Gabapentin 100 Mg Capsule) 200 mg PO TID [facility] Last Admin: 10/31/23 08:44 Dose: 200 mg Hydroxyzine HCl (Hydroxyzine Hcl 25 Mg Tablet) 25 mg PO Q6H PRN PRN Reason: Anxiety Last Admin: 10/30/23 09:34 Dose: 25 mg Magnesium Hydroxide (Milk Of Magnesia 30 Ml Oral.Susp) 30 ml PO DAILY PRN PRN Reason: Constipation Mirtazapine (Mirtazapine 15 Mg Tablet) 15 mg PO BEDTIME [facility] Last Admin: 10/30/23 20:33 Dose: 15 mg Nicotine (Nicotine 21 Mg Patch.Td24) 21 mg TRANSDERMA DAILY PRN PRN Reason: smoking cessation Nicotine Polacrilex (Nicotine Polacrilex 2 Mg Gum) 4 mg BUCCAL Q2H PRN PRN Reason: Nicotine Cravings Olanzapine (Olanzapine 5 Mg Tablet) 5 mg PO TID PRN PRN Reason: agitation Last Admin: 10/30/23 09:35 Dose: 5 mg Trazodone HCl (Trazodone Hcl 50 Mg Tablet) 50 mg PO BEDTIME MRX1 PRN PRN Reason: Insomnia Allergies Allergies Allergy/AdvReac Type Severity Reaction Status Date / Time seafood Allergy Unknown Verified 10/10/22 14:07 Assessment & Plan Assessment & Plan (1) Medical clearance for psychiatric admission: Status: Acute Code(s): Z00.8 - Encounter for other general examination (2) Bipolar 1 disorder, depressed: Status: Acute Code(s): F31.9 - Bipolar disorder, unspecified Assessment and Plan: 10/30: Continue current plans and regimen. I added Trileptal 100 mg nightly to be increased over his stay here to 900 mg Plan Pt is a 43-year-old male with a PMH significant for peripheral neuropathy, anxiety, and depression who is admitted to psychiatry unit for increasing depression with vague SI and vague HI. Patient initially presented to [facility] ED and apparently there was unable to further clarify any of his plans. Medical consult for admission H&P. ? Mood disorder Plan as per Psychiatry Peripheral neuropathy Continue gabapentin Patient otherwise has no acute medical complaints or chronic medical conditions. Will sign off for now. Thank you for allowing to participate in the care of this patient. Please re-consult if any acute issues or questions arise. Patient educated on: diagnosis, medication risk/benefits and substance abuse Reason for continued inpatient stay Substantial Risk for: harm to self Time Spent With Patient Time: Total time managing care of this patient today ____ minutes.
[2023-10-31 20:00] VITALS: BP 141/87; PULSE 58; RESP 16; TEMP 36.9; O2SAT 99
[2023-10-31] MEDS: Mirtazapine 15 MG TABLET PO (20:30)
[2023-10-31] MEDS: OXcarbazepine 150 MG TABLET PO (20:30)
[2023-11-01] MEDS: Nicotine Polacrilex 2 MG GUM 4 MG BUCCAL ×2 (05:53→23:03)
[2023-11-01 07:55] VITALS: BP 115/68; PULSE 63; RESP 18; TEMP 36.5; O2SAT 99
[2023-11-01] MEDS: Acamprosate Calcium 333 MG TABLET.DR 666 MG PO ×3 (08:50→20:31)
[2023-11-01] MEDS: Gabapentin 100 MG CAPSULE 200 MG PO ×3 (08:50→20:30)
[2023-11-01] MEDS: Buprenorphine/Naloxone 8/2 mg FILM 1 FILM SUBLINGUAL ×3 (09:20→20:32)
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
[2023-11-01] MEDS: Magnesium Hydrox/Alum Hydrox 30 ML ORAL.SUSP PO (19:06)
[2023-11-01 20:00] VITALS: BP 150/83; PULSE 69; RESP 16; TEMP 36.9; O2SAT 98
[2023-11-01] MEDS: OXcarbazepine 150 MG TABLET PO (20:32)
[2023-11-01] MEDS: Mirtazapine 15 MG TABLET PO (20:32)
[2023-11-01] MEDS: hydrOXYzine HCL 25 MG TABLET PO (20:32)
[2023-11-02 07:44] VITALS: BP 109/73; PULSE 57; RESP 14; TEMP 36.4; O2SAT 97
[2023-11-02] MEDS: Gabapentin 100 MG CAPSULE 200 MG PO ×3 (09:10→21:08)
[2023-11-02] MEDS: Acamprosate Calcium 333 MG TABLET.DR 666 MG PO ×3 (09:10→21:07)
[2023-11-02] MEDS: Buprenorphine/Naloxone 8/2 mg FILM 1 FILM SUBLINGUAL ×3 (09:11→21:08)
[2023-11-02] MEDS: Nicotine Polacrilex 2 MG GUM 4 MG BUCCAL ×3 (09:53→20:05)
[2023-11-02] MEDS: hydrOXYzine HCL 25 MG TABLET PO ×2 (14:50→21:10)
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
[2023-11-02 20:00] VITALS: BP 136/88; PULSE 71; RESP 16; TEMP 37.1; O2SAT 99
[2023-11-02] MEDS: Mirtazapine 15 MG TABLET PO (21:07)
[2023-11-02] MEDS: OXcarbazepine 300 MG TABLET PO (21:08)
[2023-11-03 07:40] VITALS: BP 122/62; PULSE 60; RESP 16; TEMP 36.4; O2SAT 96
--- NOTE | 2023-11-03 09:05 | PC.NURSE ---
pt declined to take suboxone between timeframe of 830-930 and asked to take it after breakfast.
[2023-11-03] MEDS: Acamprosate Calcium 333 MG TABLET.DR 666 MG PO (09:22)
[2023-11-03] MEDS: Gabapentin 100 MG CAPSULE 200 MG PO (09:22)
[2023-11-03] MEDS: Buprenorphine/Naloxone 8/2 mg FILM 1 FILM SUBLINGUAL (09:32)
--- NOTE | 2023-11-03 10:38 | P.DS_ITS ---
DS: Providers Provider Date of Service: 11/03/23 Date of admission: 10/30/23 00:24 Primary care physician: Unknown Physician Consults: 10/30/23 01:51 Consult to Hospitalist Routine Comment: Consulting Provider: Hospitalist Reason For Exam: admission physical DS: Diagnosis Discharge Diagnosis (1) Medical clearance for psychiatric admission: Status: Acute (2) Bipolar 1 disorder, depressed: Status: Acute DS: Medications Discharge Medications Home Medications: Previous Rx's ?Medication ?Instructions ?Recorded acamprosate 333 mg tablet,delayed 666 mg (2 x 333 mg) PO TID 30 days 11/03/23 release #180 tabs buprenorphine 8 mg-naloxone 2 mg 1 film sublingual TID 30 days #90 11/03/23 sublingual film (Suboxone) ea gabapentin 100 mg capsule 200 mg (2 x 100 mg) PO TID 30 days 11/03/23 #180 caps hydroxyzine HCl 25 mg tablet 25 mg PO Q6H PRN anxiety 30 days 11/03/23 #120 tabs mirtazapine 15 mg tablet 15 mg PO BEDTIME 30 days #30 tabs 11/03/23 nicotine (polacrilex) 2 mg gum 4 mg buccal Q2H PRN Nicotine 11/03/23 Cravings 30 days #100 ea oxcarbazepine 300 mg tablet 300 mg PO BEDTIME 30 days #30 tabs 11/03/23 Mental Status Exam Mental Status Exam Narrative: In today's visit he is alert, oriented and pleasant. Normal speech. Moderate eye contact. Affect is appropriate and flexible, full range, normo-intense. No signs of psychosis. No SI/HI/AVH. Cognitively is intact. No signs of hypomania. Judgment is intact. Data Data Completed and Pending Completed studies during hospitalization [Text1]: 10/31/23 08:08 Sodium 141 Potassium 4.2 Chloride 102 Carbon Dioxide 32 H Anion Gap 11 L BUN 15 Creatinine 0.96 Estim Creat Clear Calc 99.0 Estimated GFR > 60 Fasting Glucose 85 Estimat Average Glucose 114 Hemoglobin A1c % 5.6 Calcium 9.4 Total Bilirubin 0.3 AST 23 ALT 32 Alkaline Phosphatase 106 Total Protein 6.8 Albumin 3.5 Triglycerides 159 H Cholesterol 192 LDL Cholesterol, Calc 118 H HDL Cholesterol 43 DS: Summary Hospital Course Hospital Course: per 10/29 admission note: Brando is a 43 year old, single, father of 3, 2 surviving. He was discharged recently from [facility] about a week ago. He states that he has been feeling depressed for over a month, since mother's day. This is an anniversary of his mother's in 1999 and 2019 was the the time that his 3rd child for unknown reasons. He has been hospitalized several times including this hospital. He was not very cooperative with the interview and the information is obtained primarily from the crisis report. According to records he is on Campral 666 mg t.i.d., buprenorphine 8-2 mg t.i.d., gabapentin 600 mg at night, hydroxyzine 50 mg p.r.n. loratadine 10 mg daily, Remeron 15 mg nightly, olanzapine 5 mg b.i.d. p.r.n. and trazodone 50 mg nightly. He denies any current or recent substance abuse but does have history of cocaine, THC and alcohol dependence/use. He came back to the emergency room because ongoing de pression and suicidal ideations with some thoughts of jumping off of a bridge which he has had previously and seriously on 3 occasions. He has never actually gone through with it. Outpatient connections not clear Past Psychiatric History: History of respite in 2022. Crisis evaluations at [facility]. Treatment through [facility]. Medical Evaluation Reviewed: Yes (Reviewed) [facility] Medical History Cocaine use disorder Family History: Unknown Social History: Single, no children (per CARE team evaluation he had a child that passed at age 6 months old). Grew up in [place]. Parents when he was 11 years old. As soon as I brought up his background and siblings he became extremely anxious, irritable and slightly angry and walked out Substance History: Cocaine, THC, opiates, alcohol Trauma History: Reported that his incarceration was a traumatic experience. Precis: 10/29: Brando was admitted on a CV for safety and stabilization. Current medications were continued. I will try to talk to him later today or tomorrow to see whether he is interested in being on an antidepressant. 10/30: Continue current plans and regimen. I added Trileptal 100 mg nightly to be increased over his stay here to 900 mg. 10/31: interested in rehab. continue current mgmt. 11/01: increase HS trileptal to 300 mg. accepted to [facility] tomorrow. in good spirits. 11/02: continues feeling well. no safety concerns. meds reviewed, reconciled, prescribed. patient discharged via [facility] to [facility] in [place], [place]. per hospitalist H&P at admission: Pt is a 43-year-old male with a PMH significant for peripheral neuropathy, anxiety, and depression who is admitted to psychiatry unit for increasing depression with vague SI and vague HI. Patient initially presented to [facility] ED and apparently there was unable to further clarify any of his plans. Medical consult for admission H&P. ? Mood disorder Plan as per Psychiatry Peripheral neuropathy Continue gabapentin Patient otherwise has no acute medical complaints or chronic medical conditions. Time Spent with Patient Time attestation: Total time managing care of this patient today _35___ minutes. Discharge Plan Discharge Anticipated Discharge Date/Time: 11/03/23 10:04 Patient Disposition: Xfer Inpatient Rehab Fac Discharge Diagnosis: Depressive Disorder NOS Referrals: Physician,Unknown J [Primary Care Provider] - 1 Week Discharge Medications: New nicotine (polacrilex) 2 mg Gum 4 mg buccal Q2H PRN (Reason: Nicotine Cravings) 30 Days Qty: 100 0RF oxcarbazepine 300 mg Tablet 300 mg PO BEDTIME 30 Days Qty: 30 0RF gabapentin 100 mg Capsule 200 mg PO TID 30 Days Qty: 180 0RF acamprosate 333 mg Tablet,Delayed Release (Dr/Ec) 666 mg PO TID 30 Days Qty: 180 0RF buprenorphine-naloxone [Suboxone] 8-2 mg Film 1 film sublingual TID 30 Days Qty: 90 0RF Continued hydroxyzine HCl 25 mg tablet 25 mg PO Q6H PRN (Reason: anxiety) 30 Days Qty: 120 0RF mirtazapine 15 mg tablet 15 mg PO BEDTIME 30 Days Qty: 30 0RF Discontinued gabapentin 600 mg tablet 600 mg PO BEDTIME trazodone 50 mg tablet 50 mg PO BEDTIME PRN (Reason: insomnia) olanzapine 10 mg tablet 10 mg PO BEDTIME PRN (Reason: Anxiety) Discharge Orders: Discharge Order (Routine); Ordered 11/03/23 Ordered By: Kris Mendes Diet: Advance to usual diet Activity on Discharge: As tolerated Stand Alone Forms: Patient Portal Discharge page, Community Support Print Language: Belizean Care Plan Goals: remain safe, stable, and sober in the outpatient treatment setting Health Concerns: none Plan of Treatment: take medications as prescribed, attend appointments as scheduled Assessment: not at imminent risk of harm to self or others Discharge Date/Time: 11/03/23 10:46
== END 2023-11-03 10:46 | DRG 753 ==
PROVIDERS: Psychiatry & Neurology Psychiatry; Admitting Provider Psychiatry & Neurology Psychiatry; Visit Provider Psychiatry & Neurology Psychiatry
DX: F31.9 Bipolar disorder, unspecified (principal); R45.851 Suicidal ideations; F11.20 Opioid dependence, uncomplicated; G62.9 Polyneuropathy, unspecified; Z63.4 Disappearance and death of family member; Z79.899 Other long term (current) drug therapy
CPT/HCPCS: 36415; 80053; 80061; 83036

== ENCOUNTER → 2023-10-30 00:24 | Outpatient (BNV) | payer OTHER, SELFPAY | PROVIDERS: Admitting Provider Psychiatry & Neurology Psychiatry; Visit Provider Psychiatry & Neurology Psychiatry | DX: F31.4 Bipolar disorder, current episode depressed, severe, without psychotic features (principal) | CPT/HCPCS: 99231; 99232 ==

== ENCOUNTER → 2023-10-30 00:24 | Outpatient (BNV) | payer MEDICAID, SELFPAY | PROVIDERS: Admitting Provider Psychiatry & Neurology Psychiatry; Visit Provider Student in an Organized Health Care Education/Training Program | DX: Z00.8 Encounter for other general examination (principal) | CPT/HCPCS: 99222 ==